=== PATIENT | male | born 1935 | race Caucasian/White ===

== ENCOUNTER 2020-08-09 06:00 | Day surgery (SDC) | payer MEDICARE ==
[2020-08-07 15:14] VITALS: BMI 31.6
[2020-08-09] MEDS ORDERED: SODIUM CHLORIDE 0.9% 1,000 ML IV SCH ×2 (06:11→13:30)
[2020-08-09 12:41] VITALS: TEMP 98
[2020-08-09] MEDS ORDERED: PROPOFOL 10 MG/ML 20 ML VIAL IV ONE (12:57)
[2020-08-09] MEDS ORDERED: BENZOCAINE SPRAY 1 CAN TOPICAL ONE (13:11)
[2020-08-09 13:51] VITALS: RESP 16
--- NOTE | 2020-08-09 14:13 | ECHOT ---
TRANSESOPHAGEAL ECHOCARDIOGRAM INDICATION: Evaluation left atrial appendage. PROCEDURE: After explaining the procedure to the patient, its risks and the complications, his blood pressure, heart rate, O2 saturations were monitored. The throat was sprayed with Cetacaine. He received sedation per Anesthesia Department. The probe was introduced in the esophagus without difficulties. Images were obtained. Following that, the probe was removed. There was no immediate complication. FINDINGS: Left atrial size is normal. Left atrial appendage is normal. Left ventricular size and systolic function normal. The aortic valve appears to be normal. Mild thickening of the mitral valve leaflets was noted. Tricuspid valve appears to be normal. Descending thoracic aorta revealed mild atherosclerotic changes of the descending thoracic aorta. No pericardial effusion was noted. Doppler pulse wave and color Doppler obtained revealed moderate mitral with mild tricuspid regurgitation. There was no shunting across the interatrial septum. CONCLUSION: 1. Normal appearance left atrial appendage. 2. Normal left ventricular size and systolic function. 3. Mild thickening of the mitral valve leaflets with moderate mitral regurgitation. 4. Mild tricuspid regurgitation. 5. No shunting across the interatrial septum with color or bubble study. 6. Mild atherosclerotic changes of the descending thoracic aorta. MMODL / IJN: [id number] /
[2020-08-09 15:41] VITALS: BP 137/77
[2020-08-09 16:01] VITALS: PULSE 52
--- NOTE | 2020-08-09 17:44 | PCN ---
PROCEDURE NOTE INDICATION: Atrial tachycardia, symptomatic. PROCEDURE DESCRIPTION: After explaining the procedure to the patient, its risks and complications, his blood pressure, heart rate and oxygen saturations were monitored. After performing transesophageal echocardiogram and obtaining a sedated state per Anesthesia Department, a synchronized biphasic cardioversion using 200 joules was performed with hoahaoism of normal sinus rhythm. There was no immediate complication. CASSIDY / GAUDENCION: [id number] /
[2020-08-09] MEDS ORDERED: NON FORMULARY DRUG (Metformin Hcl [Glucophage] 1,000 MG Tablet) PO SCH (18:30)
[2020-08-09] MEDS ORDERED: ATORVASTATIN 10 MG TAB PO SCH (21:00)
[2020-08-09] MEDS ORDERED: APIXABAN 2.5 MG TABLET PO SCH (21:00)
[2020-08-10] MEDS ORDERED: PANTOPRAZOLE 40 MG TABLET PO SCH (07:30)
[2020-08-10] MEDS ORDERED: POTASSIUM CHLORIDE ER 20 MEQ TAB.ER PO SCH (09:00)
[2020-08-10] MEDS ORDERED: LISINOPRIL-HCTZ 20-25 MG 1 EACH TAB PO SCH (09:00)
[2020-08-10] MEDS ORDERED: AMIODARONE 100 MG TAB PO SCH (09:00)
[2020-08-10] MEDS ORDERED: DOXAZOSIN 2 MG TAB PO SCH (09:00)
== END 2020-08-09 16:00 | disposition home or self-care (01) ==
LOC: CATHCVL 06:00
PROVIDERS: ATTEND Internal Medicine Interventional Cardiology
DX: I47.1 Supraventricular tachycardia (principal); I48.0 Paroxysmal atrial fibrillation; I08.1 Rheumatic disorders of both mitral and tricuspid valves; I25.10 Atherosclerotic heart disease of native coronary artery without angina pectoris; I12.9 Hypertensive chronic kidney disease with stage 1 through stage 4 chronic kidney disease, or unspecified chronic kidney disease; E11.22 Type 2 diabetes mellitus with diabetic chronic kidney disease; Z20.822 Contact with and (suspected) exposure to COVID-19; N18.9 Chronic kidney disease, unspecified; E78.2 Mixed hyperlipidemia; Z79.01 Long term (current) use of anticoagulants; Z79.84 Long term (current) use of oral hypoglycemic drugs; Z79.899 Other long term (current) drug therapy; Z88.0 Allergy status to penicillin; Z88.2 Allergy status to sulfonamides; Z91.048 Other nonmedicinal substance allergy status
CPT/HCPCS: 93312; 93320; 93325; 92960; 87635; J2704

== ENCOUNTER → 2020-10-12 | Outpatient (CLI) | payer MEDICARE ==
--- NOTE | 2020-10-12 14:45 | FL ---
EXAMINATION TYPE: FL sniff test without CXR DATE OF EXAM: 10/12/2020 COMPARISON: Chest x-ray 01/24/2016 and 09/19/2020 HISTORY: Shortness of breath with exertion, left side issue per physician TECHNIQUE: Fluoroscopy. FINDINGS: Fluoroscopic guidance was provided during procedure performed by Dr. Gallo. Total 38 seconds of fluoroscopic time was utilized during the procedure . 3 last image folds were acquired. No eviden ce of paradoxical motion of the diaphragms on the sniff test with inspiration or expiration.. There i s mild asymmetric elevation of the left hemidiaphragm. IMPRESSION: As Above.
== END | disposition home or self-care (01) ==
LOC: RADUSWWP 08:31
PROVIDERS: ATTEND Internal Medicine Critical Care Medicine
DX: J98.6 Disorders of diaphragm (principal)
CPT/HCPCS: 76000

== ENCOUNTER 2022-01-18 04:50 | Observation (INO) | payer MEDICARE ==
[2022-01-18 05:42] LABS: Basophils % (A) 1 %; Eosinophils # (A) 0.2 k/uL (0-0.7); Eosinophils % (A) 3 %; HCT 34.1 % (39.0-53.0); HGB 11.2 gm/dL (13.0-17.5); Lymphocytes # (A) 0.9 k/uL (1.0-4.8); Lymphocytes % (A) 13 %; MCH 29.4 pg (25.0-35.0); MCHC 32.9 g/dL (31.0-37.0); MCV 89.2 fL (80.0-100.0); Mean Platelet Volume 8.3; Monocytes # (A) 0.3 k/uL (0-1.0); Monocytes % (A) 4 %; Neutrophils % (A) 76 %; Platelet Count 150 k/uL (150-450); RBC 3.82 m/uL (4.30-5.90); RDW 14.1 % (11.5-15.5); WBC 6.6 k/uL (3.8-10.6)
[2022-01-18 05:56] LABS: Albumin 4.1 g/dL (3.5-5.0); Calcium 8.9 mg/dL (8.4-10.2); Total Bilirubin 0.7 mg/dL (0.2-1.3); Total Protein 6.6 g/dL (6.3-8.2)
[2022-01-18 05:59] LABS: INR 1.1 (<1.2); Partial Thromboplastin Time 29.6 sec (22.0-30.0)
--- NOTE | 2022-01-18 06:06 | XR ---
EXAMINATION TYPE: XR chest 1V portable DATE OF EXAM: 01/18/2022 COMPARISON: 09/19/2020 HISTORY: Pain short of breath TECHNIQUE: FINDINGS: There is mild blunting right costophrenic angle. No heart failure seen. Heart size is brandi l. Thoracic aorta is atheromatous. IMPRESSION: There is small pleural effusion or pleural reaction right lung base without change. No he art failure.
[2022-01-18] MEDS ORDERED: AZITHROMYCIN 500 MG TAB PO STA (06:52)
[2022-01-18] MEDS ORDERED: PNEUMONIA PROTOCOL UTILIZED 1 EACH MISC PO PRN (06:58)
--- NOTE | 2022-01-18 06:58 | ED ---
SOB HPI - General Chief Complaint: Shortness of Breath Stated Complaint: ERIC Time Seen by Provider: 01/18/22 05:04 Source: patient - History of Present Illness Initial Comments: this patient is an 86-year-old man who presents to have evaluation because he suspects he is developing pneumonia. The patient states he has had cough and shortness of breath worsening since last night. He also has been feeling cold.. He has not noted fever. Patient states his cough has turned productive. He is having some yellowish sputum. No chest pain. MD Complaint: shortness of breath, cough -: hour(s) Severity scale (1-10): 0 Consistency: constant Improves With: nothing Worsens With: lying flat Known History Of: congestive heart failure Associated Symptoms: cough, sputum production, orthopnea - Related Data Home Medications Medication Instructions Recorded Confirmed Doxazosin [Cardura] 2 mg PO DAILY 01/24/16 01/18/22 Lisinopril-Hctz 20-25 mg 1 tab PO DAILY 01/24/16 01/18/22 [Zestoretic 20-25] Lovastatin [Mevacor] 40 mg PO HS 01/24/16 01/18/22 Omeprazole [PriLOSEC] 20 mg PO BID 01/24/16 01/18/22 Apixaban [Eliquis] 2.5 mg PO BID 08/07/20 01/18/22 Potassium Chloride ER [K-Dur 20] 20 meq PO DAILY 08/07/20 01/18/22 metFORMIN HCL [Glucophage] 1,000 mg PO PC-SUPPER 08/07/20 01/18/22 Azithromycin [Zithromax Z Pack] See Taper PO DIRECTED 01/18/22 01/18/22 Furosemide [Lasix] 20 mg PO DAILY 01/18/22 01/18/22 Previous Rx's Medication Instructions Recorded Metoprolol Tartrate [Lopressor] 12.5 mg PO BID #0 08/09/20 Allergies Allergy/AdvReac Type Severity Reaction Status Date / Time No Known Allergies Allergy Verified 01/18/22 12:38 Review of Systems ROS Statement: Those systems with pertinent positive or pertinent negative responses have been documented in the HPI. ROS Other: All systems not noted in ROS Statement are negative. Constitutional: Reports: chills, weakness. Denies: fever Respiratory: Reports: cough, dyspnea. Denies: wheezes, hemoptysis Cardiovascular: Reports: orthopnea. Denies: chest pain, palpitations, edema Gastrointestinal: Denies: abdominal pain, vomiting, diarrhea, constipation Genitourinary: Denies: dysuria, hematuria Musculoskeletal: Denies: back pain Skin: Denies: rash Neurological: Denies: headache, weakness Past Medical History Past Medical History: Diabetes Mellitus, Hypertension History of Any Multi-Drug Resistant Organisms: None Reported Past Surgical History: Cholecystectomy Past Psychological History: No Psychological Hx Reported Smoking Status: Never smoker Past Alcohol Use History: None Reported Past Drug Use History: None Reported General Exam General appearance: alert, in distress Head exam: Present: atraumatic, normocephalic Eye exam: Present: normal appearance. Absent: scleral icterus, conjunctival injection Neck exam: Present: normal inspection Respiratory exam: Present: respiratory distress, wheezes, rhonchi, accessory muscle use. Absent: rales, chest wall tenderness, decreased breath sounds, prolonged expiratory Cardiovascular Exam: Present: regular rate, normal rhythm, normal heart sounds. Absent: systolic murmur, diastolic murmur, rubs, gallop GI/Abdominal exam: Present: soft. Absent: distended, tenderness, guarding, rebound, rigid, mass, pulsatile mass Extremities exam: Present: normal inspection, normal capillary refill. Absent: pedal edema, calf tenderness Back exam: Present: normal inspection. Absent: CVA tenderness (R), CVA tenderness (L) Neurological exam: Present: alert Skin exam: Present: warm, dry, intact, normal color. Absent: rash Course Vital Signs 01/18/22 01/18/22 01/18/22 05:03 06:01 08:45 Temperature 98 F 98.1 F Pulse Rate 113 H 110 H 111 H Respiratory 19 20 20 Rate Blood Pressure 152/95 147/98 O2 Sat by Pulse 97 99 99 Oximetry 01/18/22 01/18/22 13:04 17:40 Temperature 98.8 F 98.5 F Pulse Rate 109 H 106 H Respiratory 20 24 Rate Blood Pressure 134/90 133/90 O2 Sat by Pulse 100 98 Oximetry Medical Decision Making - Lab Data Result diagrams: 01/20/22 07:25 01/20/22 07:25 Lab Results 01/18/22 01/18/22 01/18/22 Range/Units 05:28 05:28 05:28 WBC 6.6 (3.8-10.6) k/uL RBC 3.82 L (4.30-5.90) m/uL Hgb 11.2 L (13.0-17.5) gm/dL Hct 34.1 L (39.0-53.0) % MCV 89.2 (80.0-100.0) fL MCH 29.4 (25.0-35.0) pg MCHC 32.9 (31.0-37.0) g/dL RDW 14.1 (11.5-15.5) % Plt Count 150 (150-450) k/uL MPV 8.3 Neutrophils % 76 % Lymphocytes % 13 % Monocytes % 4 % Eosinophils % 3 % Basophils % 1 % Neutrophils # 5.0 (1.3-7.7) k/uL Lymphocytes # 0.9 L (1.0-4.8) k/uL Monocytes # 0.3 (0-1.0) k/uL Eosinophils # 0.2 (0-0.7) k/uL Basophils # 0.0 (0-0.2) k/uL PT 12.0 (9.0-12.0) sec INR 1.1 (<1.2) APTT 29.6 (22.0-30.0) sec D-Dimer 1.02 H (<0.60) mg/L FEU Sodium 134 L (137-145) mmol/L Potassium 4.0 (3.5-5.1) mmol/L Chloride 98 (98-107) mmol/L Carbon Dioxide 22 (22-30) mmol/L Anion Gap 14 mmol/L BUN 34 H (9-20) mg/dL Creatinine 2.27 H (0.66-1.25) mg/dL Est GFR (CKD-EPI)AfAm 29 (>60 ml/min/1.73 sqM) Est GFR (CKD-EPI)NonAf 25 (>60 ml/min/1.73 sqM) Glucose 192 H (74-99) mg/dL Lactic Ac Sepsis Rflx Plasma Lactic Acid Eddie (0.7-2.0) mmol/L Calcium 8.9 (8.4-10.2) mg/dL Total Bilirubin 0.7 (0.2-1.3) mg/dL AST 22 (17-59) U/L ALT 14 (4-49) U/L Alkaline Phosphatase 68 (38-126) U/L Troponin I (0.000-0.034) ng/mL NT-Pro-B Natriuret Pep pg/mL Total Protein 6.6 (6.3-8.2) g/dL Albumin 4.1 (3.5-5.0) g/dL 01/18/22 01/18/22 01/18/22 Range/Units 05:28 05:28 05:28 WBC (3.8-10.6) k/uL RBC (4.30-5.90) m/uL Hgb (13.0-17.5) gm/dL Hct (39.0-53.0) % MCV (80.0-100.0) fL MCH (25.0-35.0) pg MCHC (31.0-37.0) g/dL RDW (11.5-15.5) % Plt Count (150-450) k/uL MPV Neutrophils % % Lymphocytes % % Monocytes % % Eosinophils % % Basophils % % Neutrophils # (1.3-7.7) k/uL Lymphocytes # (1.0-4.8) k/uL Monocytes # (0-1.0) k/uL Eosinophils # (0-0.7) k/uL Basophils # (0-0.2) k/uL PT (9.0-12.0) sec INR (<1.2) APTT (22.0-30.0) sec D-Dimer (<0.60) mg/L FEU Sodium (137-145) mmol/L Potassium (3.5-5.1) mmol/L Chloride (98-107) mmol/L Carbon Dioxide (22-30) mmol/L Anion Gap mmol/L BUN (9-20) mg/dL Creatinine (0.66-1.25) mg/dL Est GFR (CKD-EPI)AfAm (>60 ml/min/1.73 sqM) Est GFR (CKD-EPI)NonAf (>60 ml/min/1.73 sqM) Glucose (74-99) mg/dL Lactic Ac Sepsis Rflx Plasma Lactic Acid Eddie 2.6 H* (0.7-2.0) mmol/L Calcium (8.4-10.2) mg/dL Total Bilirubin (0.2-1.3) mg/dL AST (17-59) U/L ALT (4-49) U/L Alkaline Phosphatase (38-126) U/L Troponin I 0.014 (0.000-0.034) ng/mL NT-Pro-B Natriuret Pep 2300 pg/mL Total Protein (6.3-8.2) g/dL Albumin (3.5-5.0) g/dL 01/18/22 Range/Units 06:05 WBC (3.8-10.6) k/uL RBC (4.30-5.90) m/uL Hgb (13.0-17.5) gm/dL Hct (39.0-53.0) % MCV (80.0-100.0) fL MCH (25.0-35.0) pg MCHC (31.0-37.0) g/dL RDW (11.5-15.5) % Plt Count (150-450) k/uL MPV Neutrophils % % Lymphocytes % % Monocytes % % Eosinophils % % Basophils % % Neutrophils # (1.3-7.7) k/uL Lymphocytes # (1.0-4.8) k/uL Monocytes # (0-1.0) k/uL Eosinophils # (0-0.7) k/uL Basophils # (0-0.2) k/uL PT (9.0-12.0) sec INR (<1.2) APTT (22.0-30.0) sec D-Dimer (<0.60) mg/L FEU Sodium (137-145) mmol/L Potassium (3.5-5.1) mmol/L Chloride (98-107) mmol/L Carbon Dioxide (22-30) mmol/L Anion Gap mmol/L BUN (9-20) mg/dL Creatinine (0.66-1.25) mg/dL Est GFR (CKD-EPI)AfAm (>60 ml/min/1.73 sqM) Est GFR (CKD-EPI)NonAf (>60 ml/min/1.73 sqM) Glucose (74-99) mg/dL Lactic Ac Sepsis Rflx Y Plasma Lactic Acid Eddie (0.7-2.0) mmol/L Calcium (8.4-10.2) mg/dL Total Bilirubin (0.2-1.3) mg/dL AST (17-59) U/L ALT (4-49) U/L Alkaline Phosphatase (38-126) U/L Troponin I (0.000-0.034) ng/mL NT-Pro-B Natriuret Pep pg/mL Total Protein (6.3-8.2) g/dL Albumin (3.5-5.0) g/dL - EKG Data -: EKG Interpreted by Md EKG shows normal: axis (normal), intervals (normal) Rate: tachycardia (rate 111 bpm) Interpretation: other (the underlying rhythm is possible ectopic atrial tachycardia versus A. fib) Disposition Clinical Impression: Dyspnea Disposition: ADMITTED IP TO THIS HOSP Condition: Fair Is patient prescribed a controlled substance at d/c from ED?: No
[2022-01-18] MEDS: LISINOPRIL-HCTZ 20-25 MG 1 EACH TAB PO SCH (08:37)
[2022-01-18] MEDS: AMIODARONE 100 MG TAB PO SCH (08:37)
[2022-01-18] MEDS: DOXAZOSIN 2 MG TAB PO SCH (08:37)
[2022-01-18] MEDS: APIXABAN 2.5 MG TABLET PO SCH ×2 (08:38→21:11)
[2022-01-18] MEDS: METOPROLOL TARTRATE 12.5 MG TAB PO SCH ×2 (08:38→21:11)
[2022-01-18] MEDS: PANTOPRAZOLE 40 MG TABLET PO SCH (08:38)
[2022-01-18] MEDS: POTASSIUM CHLORIDE ER 20 MEQ TAB.ER PO SCH (08:38)
--- NOTE | 2022-01-18 13:38 | NM ---
EXAMINATION TYPE: NM pul vent and perfuse DATE OF EXAM: 01/18/2022 COMPARISON: Chest x-ray same date HISTORY: Dyspnea and cough TECHNIQUE: Utilizing inhalation of 68.9 mCi Tc 99m DTPA aerosol and intravenous injection of 4.7 mCi of Tc 99m MAA, ventilation and perfusion images are acquired post injection in multiple projections. FINDINGS: Central clumping of the radiopharmaceutical is present on ventilation images suggesting COPD. Overall perfusion images show better uptake than on ventilation images within the lungs. Matching defect pre sent in the mid right lung. Mild decreased uptake along the apices greater on ventilation than on per fusion imaging. Matching subsegmental defects present in the left upper lobe.. IMPRESSION: Low probability for pulmonary embolism
--- NOTE | 2022-01-18 13:38 | P.CRDCN ---
History of Present Illness Consult date: 01/18/22 Consult reason: shortness of breath History of present illness: This is Alfa Hobbs NP, I'm dictating on behalf of Dr. Bermudez's H&P and A&P The patient was interviewed and examined. HPI: We were consulted on this pleasant 86-year-old patient for shortness of breath. Patient reports that he has been sick for approximately the last 4 days, and states that he's had a cold. He states that last night he thought he was starting to develop pneumonia, as he reports increasing shortness of breath with a cough. He states he has had productive sputum that has been yellow. He states he's had no chest pain, or heart palpitations. He has a pertinent past medical history that includes diabetes, hypertension, and congestive heart failure. At this time the patient reports no chest pain. He states he continues to cough up yellow sputum. ROS: [No fever, positive chills, no rigors] [Positive cough, phlegm, and expectoration] [no nausea, vomiting, or diarrhea] [no hematuria, dysuria] [no musculoskelatal complaints] [no strokes or seizures] [no skin lesions] EXAMINATION: GENERAL: Well-appearing, well-nourished and in no acute distress. NECK: Supple without JVD or thyromegaly. LUNGS: Breath sounds demonstrate decreased air entry with crackles to auscultation bilaterally. Respiration equal and unlabored. No wheezes, rales or rhonchi. HEART: Regular rate and rhythm without murmurs, rubs or gallops. S1 and S2 heard. EXTREMITIES: Normal range of motion, no edema. No clubbing or cyanosis. Peripheral pulses intact and strong. REVIEW OF LABS, ECG & MEDICAL DATA: LABS: White count 6.6, hemoglobin 11.2, platelets 150, d-dimer 1.02, sodium 134, potassium 4.0, B1 34, creatinine 2.27, troponin 0.014, BNP 2300 EKG: Atrial tachycardia, reviewable complexes appear to be normal IMAGING: Chest x-ray dated 01/18/2022 demonstrates a small pleural effusion or pleural reaction at the right lung base without change. No heart failure. VITALS: Temp 98.1, pulse 111, respirations 20, blood pressure 147/98, O2 saturation 99% on 2 L IMPRESSION: 1. Pneumonia 2. Hypertension 3. Congestive heart failure 4. Diabetes PLAN: No changes to medication regimen recommended at this time Patient appears to have an underlying pneumonia with no acute exacerbation of congestive heart failure noted. Recommend pulmonary consult. Thank you for the consult and allowing us to participate in the care of this patient. Past Medical History Past Medical History: Diabetes Mellitus, Hypertension History of Any Multi-Drug Resistant Organisms: None Reported Past Surgical History: Cholecystectomy Past Psychological History: No Psychological Hx Reported Smoking Status: Never smoker Past Alcohol Use History: None Reported Past Drug Use History: None Reported Medications and Allergies Home Medications Medication Instructions Recorded Confirmed Type Doxazosin [Cardura] 2 mg PO DAILY 01/24/16 01/18/22 History Lisinopril-Hctz 20-25 mg 1 tab PO DAILY 01/24/16 01/18/22 History [Zestoretic 20-25] Lovastatin [Mevacor] 40 mg PO HS 01/24/16 01/18/22 History Omeprazole [PriLOSEC] 20 mg PO BID 01/24/16 01/18/22 History Apixaban [Eliquis] 2.5 mg PO BID 08/07/20 01/18/22 History Potassium Chloride ER [K-Dur 20] 20 meq PO DAILY 08/07/20 01/18/22 History metFORMIN HCL [Glucophage] 1,000 mg PO PC-SUPPER 08/07/20 01/18/22 History Metoprolol Tartrate [Lopressor] 12.5 mg PO BID #0 08/09/20 01/18/22 Rx Azithromycin [Zithromax Z Pack] See Taper PO DIRECTED 01/18/22 01/18/22 Hist ory Furosemide [Lasix] 20 mg PO DAILY 01/18/22 01/18/22 History Allergies Allergy/AdvReac Type Severity Reaction Status Date / Time No Known Allergies Allergy Verified 01/18/22 12:38 Physical Exam Vitals: Vital Signs Temp Pulse Resp BP Pulse Ox 01/18/22 13:04 98.8 F 109 H 20 134/90 100 01/18/22 08:45 98.1 F 111 H 20 147/98 99 01/18/22 06:01 110 H 20 99 01/18/22 05:03 98 F 113 H 19 152/95 97 Intake and Output 10/14/22 10/15/22 10/15/22 22:59 06:59 14:59 Other: Weight 76.657 kg Results 01/18/22 05:28 01/18/22 05:28 Cardiac Enzymes 01/18/22 01/18/22 Range/Units 05:28 05:28 AST 22 (17-59) U/L Troponin I 0.014 (0.000-0.034) ng/mL Coagulation 01/18/22 Range/Units 05:28 PT 12.0 (9.0-12.0) sec APTT 29.6 (22.0-30.0) sec CBC 01/18/22 Range/Units 05:28 WBC 6.6 (3.8-10.6) k/uL RBC 3.82 L (4.30-5.90) m/uL Hgb 11.2 L (13.0-17.5) gm/dL Hct 34.1 L (39.0-53.0) % Plt Count 150 (150-450) k/uL Comprehensive Metabolic Panel 01/18/22 Range/Units 05:28 Sodium 134 L (137-145) mmol/L Potassium 4.0 (3.5-5.1) mmol/L Chloride 98 (98-107) mmol/L Carbon Dioxide 22 (22-30) mmol/L BUN 34 H (9-20) mg/dL Creatinine 2.27 H (0.66-1.25) mg/dL Glucose 192 H (74-99) mg/dL Calcium 8.9 (8.4-10.2) mg/dL AST 22 (17-59) U/L ALT 14 (4-49) U/L Alkaline Phosphatase 68 (38-126) U/L Total Protein 6.6 (6.3-8.2) g/dL Albumin 4.1 (3.5-5.0) g/dL Current Medications Generic Name Dose Route Start Last Admin Trade Name Freq PRN Reason Stop Dose Admin Amiodarone HCl 100 mg 01/18/22 09:00 01/18/22 08:37 Amiodarone 100 Mg Tab PO 100 mg DAILY KAYE Administration Apixaban 2.5 mg 01/18/22 09:00 01/18/22 08:38 Apixaban 2.5 Mg Tablet PO 2.5 mg BID KAYE Administration Protocol Atorvastatin Calcium 10 mg 01/18/22 21:00 Atorvastatin 10 Mg Tab PO HS KAYE Azithromycin 500 mg 01/19/22 09:00 Azithromycin 500 Mg Tab PO 01/20/22 09:01 DAILY KAYE Protocol Doxazosin Mesylate 2 mg 01/18/22 09:00 01/18/22 08:37 Doxazosin 2 Mg Tab PO 2 mg DAILY KAYE Administration Lisinopril/HCTZ 1 each 01/18/22 09:00 01/18/22 08:37 Lisinopril-Hctz 20-25 Mg 1 Each Tab PO 1 each DAILY KAYE Administration Ceftriaxone Sodium 2 gm/ 50 mls @ 100 mls/hr 01/19/22 09:00 Sodium Chloride IVPB 01/22/22 09:29 Q24HR [facility] Protocol Metformin HCl 1,000 mg 01/18/22 18:30 Metformin 500 Mg Tab PO PC-SUPPER KAYE Metoprolol Tartrate 12.5 mg 01/18/22 09:00 01/18/22 08:38 Metoprolol Tartrate 12.5 Mg Tab PO 12.5 mg BID KAYE Administration Miscellaneous Information 1 each 01/18/22 06:58 Pneumonia Protocol Utilized 1 Each Misc PO ONCE PRN Per Protocol Pantoprazole Sodium 40 mg 01/18/22 07:30 01/18/22 08:38 Pantoprazole 40 Mg Tablet PO 40 mg [id number] KAYE Administration Potassium Chloride 20 meq 01/18/22 09:00 01/18/22 08:38 Potassium Chloride Er 20 Meq Tab.Er PO 20 meq DAILY KAYE Administration Sodium Chloride 10 ml 01/18/22 09:00 01/18/22 08:38 Sodium Chloride 0.9% Flush 10 Ml Syringe IV 10 ml BID KAYE Administration Intake and Output 01/17/22 01/18/22 01/18/22 22:59 06:59 14:59 Other: Weight 76.657 kg 01/18/22 05:28 01/18/22 05:28
[2022-01-18] MEDS ORDERED: metFORMIN 500 MG TAB PO SCH (18:30)
--- NOTE | 2022-01-18 18:56 | P.HPIM ---
History of Present Illness H&P Date: 01/18/22 Chief Complaint: Shortness of breath Patient is a 86-year-old male with a known history of hypertension, diabetes type 2, atrial fibrillation on anticoagulation with Eliquis, chronic kidney disease stage III presents to ER with complaints of shortness of breath, cough with yellowish sputum production. Patient thought he was developing pneumonia. According to his she did have sinusitis and her also started having cough with sputum production. Denied any having fever at home. No complaints of chest pain. No nausea vomiting abdominal pain or diarrhea. No dysuria. No leg swelling. Chest x-ray showed very small pleural effusion or pleural reaction in the right lung base without change. No heart failure. EKG showed ectopics atrial tachycardia with frequent ventricular premature complexes. Laboratory test showed WBC 6.6 hemoglobin 11.2 and platelets 150 Iron D-dimer is 1.02 Sodium 134 potassium 4.0 chloride 98 BUN 34 and creatinine 2.27 and blood sugar 192 lactic acid 2.6 Troponin x1 negative and proBNP is 2300 Review of Systems Constitutional: Patient denies any fever or chills . no Generalized weakness. Abdomen: Patient denied any nausea or vomiting or abd. pain Cardiovascular: Patient denies any chest pain or short of breath no palpitations. Respiratory: Patient does have cough with sputum production yellowish. Associated with shortness of breath Neurologic: Patient denied any numbness or tingling headache. Musculoskeletal: Patient denies any complaints of joint swelling or deformity. Skin: Negative Psychiatric: Negative Endocrine: No heat or cold intolerance. No recent weight gain. Genitourinary: No dysuria or hematuria. All other 14 point ROS negative except the above Past Medical History Past Medical History: Diabetes Mellitus, Hypertension History of Any Multi-Drug Resistant Organisms: None Reported Past Surgical History: Cholecystectomy Past Psychological History: No Psychological Hx Reported Smoking Status: Never smoker Past Alcohol Use History: None Reported Past Drug Use History: None Reported Medications and Allergies Home Medications Medication Instructions Recorded Confirmed Type Doxazosin [Cardura] 2 mg PO DAILY 01/24/16 01/18/22 History Lisinopril-Hctz 20-25 mg 1 tab PO DAILY 01/24/16 01/18/22 History [Zestoretic 20-25] Lovastatin [Mevacor] 40 mg PO HS 01/24/16 01/18/22 History Omeprazole [PriLOSEC] 20 mg PO BID 01/24/16 01/18/22 History Apixaban [Eliquis] 2.5 mg PO BID 08/07/20 01/18/22 History Potassium Chloride ER [K-Dur 20] 20 meq PO DAILY 08/07/20 01/18/22 History metFORMIN HCL [Glucophage] 1,000 mg PO PC-SUPPER 08/07/20 01/18/22 History Metoprolol Tartrate [Lopressor] 12.5 mg PO BID #0 08/09/20 01/18/22 Rx Azithromycin [Zithromax Z Pack] See Taper PO DIRECTED 01/18/22 01/18/22 History Furosemide [Lasix] 20 mg PO DAILY 01/18/22 01/18/22 History Allergies Allergy/AdvReac Type Severity Reaction Status Date / Time No Known Allergies Allergy Verified 01/18/22 12:38 Physical Exam Vitals: Vital Signs Temp Pulse Resp BP Pulse Ox 01/18/22 08:45 98.1 F 111 H 20 147/98 99 01/18/22 06:01 110 H 20 99 01/18/22 05:03 98 F 113 H 19 152/95 97 Intake and Output 01/17/22 01/18/22 01/18/22 22:59 06:59 14:59 Other: Weight 76.657 kg PHYSICAL EXAMINATION: Patient is lying in the bed comfortably, no acute distress, awake alert and oriented.. HEENT: Normocephalic. Neck is supple. Pupils reactive. Nostrils clear. Oral cavity is moist. Neck reveals no JVD, carotid bruits, or thyromegaly. CHEST EXAMINATION: Trachea is central. Symmetrical expansion. Bilateral diminished sounds and minimal basilar crackles. No wheezing or rhonchi. Nonlabored breathing.. CARDIAC: Normal S1, S2 with no gallops. No murmurs ABDOMEN: Soft. Bowel sounds present. Nontender. No organomegaly. No abdominal bruits. Extremities: reveal no edema. No clubbing or cyanosis Neurologically awake, alert, oriented x3 with well-coordinated movements. No focal deficits noted Skin: No rash or skin lesions. Psychiatric: Coperative. Nonsuicidal, Musculoskeletal: No joint swelling or deformity. Normal range of motion. Results CBC & Chem 7: 01/18/22 05:28 01/18/22 05:28 Labs: Abnormal Lab Results - Last 24 Hours (Table) 01/18/22 01/18/22 01/18/22 Range/Units 05:28 05:28 05:28 RBC 3.82 L (4.30-5.90) m/uL Hgb 11.2 L (13.0-17.5) gm/dL Hct 34.1 L (39.0-53.0) % Lymphocytes # 0.9 L (1.0-4.8) k/uL D-Dimer 1.02 H (<0.60) mg/L FEU Sodium 134 L (137-145) mmol/L BUN 34 H (9-20) mg/dL Creatinine 2.27 H (0.66-1.25) mg/dL Glucose 192 H (74-99) mg/dL Plasma Lactic Acid Eddie (0.7-2.0) mmol/L 01/18/22 Range/Units 05:28 RBC (4.30-5.90) m/uL Hgb (13.0-17.5) gm/dL Hct (39.0-53.0) % Lymphocytes # (1.0-4.8) k/uL D-Dimer (<0.60) mg/L FEU Sodium (137-145) mmol/L BUN (9-20) mg/dL Creatinine (0.66-1.25) mg/dL Glucose (74-99) mg/dL Plasma Lactic Acid Eddie 2.6 H* (0.7-2.0) mmol/L Thrombosis Risk Factor Assmnt - DVT/VTE Prophylaxis DVT/VTE Prophylaxis: Pharmacologic Prophylaxis ordered Assessment and Plan Assessment: Acute purulent tracheobronchitis. Possible pneumonia. Shortness of breath Elevated D-dimer level. Rule out PE. VQ scan was ordered due to CKD. Chronic kidney disease stage III with baseline creatinine around 2.4. Elevated BNP level without evidence of CHF. Chronic CHF. Ejection fraction not known. Paroxysmal atrial fibrillation on anticoagulation with Eliquis Hypertension Diabetes type 2 GI and DVT prophylaxis Plan: Patient will continue on telemetry monitoring. Started on antibiotics in the form of ceftriaxone azithromycin. Follow-up sputum cultures. Patient is currently requiring 2 L oxygen via nasal cannula. Continued home blood pressure medications and metoprolol 12.5 mg twice daily and amiodarone. Cardiology is on board. Discussed with the patient and his at bedside in detail. Prognosis is guarded at this time. Time with Patient: Greater than 30
[2022-01-18 20:29] LABS: Glucose,Whole Blood 173 mg/dL (70-110)
[2022-01-18] MEDS: ATORVASTATIN 10 MG TAB PO SCH (21:12)
[2022-01-19 07:00] LABS: Glucose,Whole Blood 161 mg/dL (70-110)
[2022-01-19] MEDS: APIXABAN 2.5 MG TABLET PO SCH ×2 (07:19→21:03)
[2022-01-19] MEDS: PANTOPRAZOLE 40 MG TABLET PO SCH (07:19)
[2022-01-19] MEDS: METOPROLOL TARTRATE 12.5 MG TAB PO SCH (07:19)
[2022-01-19] MEDS: POTASSIUM CHLORIDE ER 20 MEQ TAB.ER PO SCH (07:19)
[2022-01-19] MEDS: DOXAZOSIN 2 MG TAB PO SCH (07:20)
[2022-01-19] MEDS: LISINOPRIL-HCTZ 20-25 MG 1 EACH TAB PO SCH (07:20)
[2022-01-19] MEDS: AMIODARONE 100 MG TAB PO SCH (07:20)
[2022-01-19] MEDS: AZITHROMYCIN 500 MG TAB PO SCH (07:20)
[2022-01-19] MEDS: METOPROLOL TARTRATE 25 MG TAB PO SCH ×2 (08:50→21:03)
[2022-01-19 08:59] LABS: Basophils # (A) 0.02 X 10*3/uL (0.00-0.10); Basophils % (A) 0.3 %; Eosinophils # (A) 0.09 X 10*3/uL (0.04-0.35); Eosinophils % (A) 1.3 %; HCT 32.6 % (39.6-50.0); HGB 10.2 g/dL (13.0-17.0); Immature Grans, Automated 0.3 %; Lymphocytes # (A) 0.74 X 10*3/uL (0.90-5.00); Lymphocytes % (A) 10.4 %; MCH 28.3 pg (27.0-32.0); MCHC 31.3 g/dL (32.0-37.0); MCV 90.6 fL (80.0-97.0); Mean Platelet Volume 10.7 fL (9.5-12.2); Monocytes # (A) 0.71 X 10*3/uL (0.20-1.00); NRBC Per 100 WBC 0 /100 WBCS (0.0-0.0); Neutrophils # (A) 5.55 X 10*3/uL (1.80-7.70); Neutrophils % (A) 77.7 %; Platelet Count 166 X 10*3/uL (140-440); WBC 7.13 X 10*3/uL (4.50-10.00)
[2022-01-19 09:10] LABS: African American GFR (CKD) 33.2 (60.0-200.0); Anion Gap 11.3 mmol/L (10.00-18.00); BUN/Creat Ratio 13.43 Ratio (12.00-20.00); Blood Urea Nitrogen 27.4 mg/dL (9.0-27.0); Carbon Dioxide 26.1 mmol/L (20.0-27.5); Non-African American GFR(CKD) 28.7 (60.0-200.0); Potassium 4.2 mmol/L (3.5-5.5)
[2022-01-19 11:28] LABS: Glucose,Whole Blood 165 mg/dL (70-110)
[2022-01-19] MEDS ORDERED: FUROSEMIDE 10 MG/ML 2 ML VIAL IV ONE (11:56)
[2022-01-19] MEDS: DILTIAZEM ORAL 30 MG TAB PO SCH ×3 (14:12→21:03)
[2022-01-19 17:09] LABS: Glucose,Whole Blood 153 mg/dL (70-110)
[2022-01-19 20:21] LABS: Glucose,Whole Blood 165 mg/dL (70-110)
[2022-01-19] MEDS: ATORVASTATIN 10 MG TAB PO SCH (21:03)
--- NOTE | 2022-01-20 01:44 | P.PN ---
Subjective Progress Note Date: 01/19/22 Patient is a 86-year-old male with a known history of hypertension, diabetes type 2, atrial fibrillation on anticoagulation with Eliquis, chronic kidney disease stage III presents to ER with complaints of shortness of breath, cough with yellowish sputum production. Patient thought he was developing pneumonia. According to his she did have sinusitis and her also started having cough with sputum production. Denied any having fever at home. No complaints of chest pain. No nausea vomiting abdominal pain or diarrhea. No dysuria. No leg swelling. Chest x-ray showed very small pleural effusion or pleural reaction in the right lung base without change. No heart failure. EKG showed ectopics atrial tachycardia with frequent ventricular premature complexes. Laboratory test showed WBC 6.6 hemoglobin 11.2 and platelets 150 Iron D-dimer is 1.02 Sodium 134 potassium 4.0 chloride 98 BUN 34 and creatinine 2.27 and blood sugar 192 lactic acid 2.6 Troponin x1 negative and proBNP is 2300 01/19/2022 Patient is currently sitting on a chair. Comfortably. Awake alert and oriented x3. No complaints of chest pain. Cough and sputum production is also improved. Patient is currently on room air. Patient is able to walk in the hallway. Otherwise patient 22 atrial fibrillation with rapid ventricular rate. No complaints of chest pain. Patient was started back on metoprolol and added Ca rdizem 30 mg daily. Cardiology is on board. Otherwise patient is being current on antibiotics for tracheobronchitis. Blood cultures showed no growth. Patient is improving clinically. Current medications reviewed. Objective - Vital Signs Vital signs: Vital Signs Temp 97.5 F L 01/19/22 13:10 Pulse 102 H 01/19/22 15:43 Resp 16 01/19/22 13:10 BP 129/80 01/19/22 14:41 Pulse Ox 97 01/19/22 13:10 FiO2 Intake & Output 01/18/22 01/19/22 01/19/22 18:59 06:59 18:59 Weight 77 kg Other: Voiding Method Toilet # Voids 2 - Exam PHYSICAL EXAMINATION: Patient is lying in the bed comfortably, no acute distress, awake alert and oriented.. HEENT: Normocephalic. Neck is supple. Pupils reactive. Nostrils clear. Oral cavity is moist. Neck reveals no JVD, carotid bruits, or thyromegaly. CHEST EXAMINATION: Trachea is central. Symmetrical expansion. Bilateral diminished sounds and minimal basilar crackles. No wheezing or rhonchi. Nonlabored breathing.. CARDIAC: Normal S1, S2 with no gallops. No murmurs ABDOMEN: Soft. Bowel sounds present. Nontender. No organomegaly. No abdominal bruits. Extremities: reveal no edema. No clubbing or cyanosis Neurologically awake, alert, oriented x3 with well-coordinated movements. No focal deficits noted Skin: No rash or skin lesions. Psychiatric: Coperative. Nonsuicidal, Musculoskeletal: No joint swelling or deformity. Normal range of motion. - Labs CBC & Chem 7: 01/19/22 03:45 01/19/22 03:45 Labs: Abnormal Lab Results - Last 24 Hours (Table) 01/18/22 01/19/22 01/19/22 Range/Units 20:27 03:45 03:45 RBC 3.60 L (4.40-5.60) X 10*6/uL Hgb 10.2 L (13.0-17.0) g/dL Hct 32.6 L (39.6-50.0) % MCHC 31.3 L (32.0-37.0) g/dL Lymphocytes # 0.74 L (0.90-5.00) X 10*3/uL Sodium 134 L (135-145) mmol/L BUN 27.4 H (9.0-27.0) mg/dL Creatinine 2.0 H (0.6-1.5) mg/dL Est GFR (CKD-EPI)AfAm 33.2 L (60.0-200.0) Est GFR (CKD-EPI)NonAf 28.7 L (60.0-200.0) Glucose 151 H (70-110) mg/dL POC Glucose (mg/dL) 173 H (70-110) mg/dL 01/19/22 01/19/22 Range/Units 06:58 11:26 RBC (4.40-5.60) X 10*6/uL Hgb (13.0-17.0) g/dL Hct (39.6-50.0) % MCHC (32.0-37.0) g/dL Lymphocytes # (0.90-5.00) X 10*3/uL Sodium (135-145) mmol/L BUN (9.0-27.0) mg/dL Creatinine (0.6-1.5) mg/dL Est GFR (CKD-EPI)AfAm (60.0-200.0) Est GFR (CKD-EPI)NonAf (60.0-200.0) Glucose (70-110) mg/dL POC Glucose (mg/dL) 161 H 165 H (70-110) mg/dL Microbiology - Last 24 Hours (Table) 01/18/22 08:00 Blood Culture - Preliminary Blood No Growth after 24 hours 01/18/22 07:45 Blood Culture - Preliminary Blood No Growth after 24 hours Assessment and Plan Assessment: Acute purulent tracheobronchitis. Possible pneumonia. Shortness of breath Atrial fibrillation with rapid regular rate. Elevated D-dimer level. Rule out PE. VQ scan low prob. Chronic kidney disease stage III with baseline creatinine around 2.4. Elevated BNP level without evidence of CHF. Chronic CHF. Ejection fraction not known. Paroxysmal atrial fibrillation on anticoagulation with Eliquis Hypertension Diabetes type 2 GI and DVT prophylaxis Plan: Patient will continue on telemetry monitoring. Started on antibiotics in the form of ceftriaxone azithromycin. Follow-up sputum cultures. on RA now. Continued home blood pressure medications and metoprolol 12.5 mg twice daily and amiodarone. Cardiology is on board. added Cardizem Discussed with the patient and his at bedside in detail. Prognosis is guarded at this time. Time with Patient: Greater than 30
[2022-01-20 07:01] LABS: Glucose,Whole Blood 138 mg/dL (70-110)
[2022-01-20] MEDS: APIXABAN 2.5 MG TABLET PO SCH ×2 (08:18→21:44)
[2022-01-20] MEDS: METOPROLOL TARTRATE 25 MG TAB PO SCH ×2 (08:19→21:44)
[2022-01-20] MEDS: AZITHROMYCIN 500 MG TAB PO SCH (08:19)
[2022-01-20] MEDS: DILTIAZEM ORAL 30 MG TAB PO SCH ×4 (08:19→21:44)
[2022-01-20] MEDS: AMIODARONE 100 MG TAB PO SCH (08:19)
[2022-01-20] MEDS: POTASSIUM CHLORIDE ER 20 MEQ TAB.ER PO SCH (08:19)
[2022-01-20] MEDS: DOXAZOSIN 2 MG TAB PO SCH (08:19)
[2022-01-20] MEDS: LISINOPRIL-HCTZ 20-25 MG 1 EACH TAB PO SCH (08:19)
[2022-01-20] MEDS: PANTOPRAZOLE 40 MG TABLET PO SCH (08:19)
[2022-01-20 11:39] LABS: African American GFR (CKD) 34.6 (60.0-200.0); Anion Gap 11.9 mmol/L (10.00-18.00); BUN/Creat Ratio 14.57 Ratio (12.00-20.00); Blood Urea Nitrogen 28.7 mg/dL (9.0-27.0); Calcium 8.9 mg/dL (8.7-10.3); Carbon Dioxide 26.1 mmol/L (20.0-27.5); Non-African American GFR(CKD) 29.9 (60.0-200.0); Potassium 4.3 mmol/L (3.5-5.5)
[2022-01-20 11:41] LABS: Basophils # (A) 0.02 X 10*3/uL (0.00-0.10); Basophils % (A) 0.3 %; Eosinophils # (A) 0.22 X 10*3/uL (0.04-0.35); Eosinophils % (A) 3.3 %; HCT 32.7 % (39.6-50.0); HGB 10.4 g/dL (13.0-17.0); Immature Grans, Automated 0.3 %; Lymphocytes # (A) 1.16 X 10*3/uL (0.90-5.00); Lymphocytes % (A) 17.5 %; MCH 28.7 pg (27.0-32.0); MCHC 31.8 g/dL (32.0-37.0); MCV 90.1 fL (80.0-97.0); Mean Platelet Volume 10.4 fL (9.5-12.2); Monocytes # (A) 0.71 X 10*3/uL (0.20-1.00); Monocytes % (A) 10.7 %; NRBC Per 100 WBC 0 /100 WBCS (0.0-0.0); Neutrophils # (A) 4.51 X 10*3/uL (1.80-7.70); Neutrophils % (A) 67.9 %; Platelet Count 157 X 10*3/uL (140-440); RBC 3.63 X 10*6/uL (4.40-5.60); WBC 6.64 X 10*3/uL (4.50-10.00)
[2022-01-20 11:55] LABS: Glucose,Whole Blood 130 mg/dL (70-110)
[2022-01-20] MEDS ORDERED: IPRATROPIUM-ALBUTEROL 3 ML NEB INHALATION PRN (13:06)
--- NOTE | 2022-01-20 15:29 | P.CNPUL ---
History of Present Illness Consult date: 01/20/22 Requesting physician: Estuardo Bermudez Reason for consult: dyspnea, cough Chief complaint: Shortness of breath, cough, congestion History of present illness: This is a 86-year-old male patient with a known history of diabetes mellitus, hypertension, hyperlipidemia, atrial fibrillation anticoagulated with Eliquis. Therapy is a very remote smoking history. He presented here to the emergency room on 01/19/2020 with complaints of increasing shortness of breath, cough and congestion. His had been sick recently with a sinus infection. He states he has yellow productive sputum. No fever chills. No nausea, vomiting or diarrhea. Chest x-ray revealed a small pleural effusion or reaction in the right lung base without change compared to previous in September 2020. No heart failure. Blood culture pending. Sputum culture pending. White count 6.6. Hemoglobin 10.4. Sodium 134. Potassium 4.3. Bicarb 28. Creatinine 2.0. Glucose 136. ProBNP 2300. D-dimer 1.02. Ventilation/perfusion scan revealed low probability for pulmonary emboli. He was initiated on ceftriaxone. He is seen today in consultation on the regular medical floor. Sitting up in a chair at the bedside. Awake and alert in no acute distress. He does have a loose nonproductive cough. Some end expiratory wheeze and few scattered rhonchi. He is maintaining O2 saturations in the upper 90s on 2 L/m per nasal cannula. He is afebrile. Hemodynamically stable. Review of Systems REVIEW OF SYSTEMS: CONSTITUTIONAL: Denies any recent significant weight loss or weight gain. EYES: Denies change in vision. EARS, NOSE, MOUTH, THROAT: Denies headaches, denies sore throat. CARDIOVASCULAR: Denies chest pain, palpitations or syncopal episodes. RESPIRATORY: Positive for shortness of breath, cough, congestion no hemoptysis. GASTROINTESTINAL: Denies change in appetite, denies abdominal pain GENITOURINARY: Denies hematuria, denies infections. MUSKULOSKELETAL: Denies pain, denies swelling. INTEGUMENTARY: Denies rash, denies eczema. NEUROLOGICAL: Denies recent memory loss, no recent seizure activity. PSYCHIATRIC: Denies anxiety, denies depression. HEMATOLOGIC/LYMPHATIC: Denies anemia, denies enlarged lymph nodes. Past Medical History Past Medical History: Atrial Fibrillation, Heart Failure, Diabetes Mellitus, Hypertension History of Any Multi-Drug Resistant Organisms: None Reported Past Surgical History: Cholecystectomy Past Anesthesia/Blood Transfusion Reactions: No Reported Reaction Past Psychological History: No Psychological Hx Reported Smoking Status: Never smoker Past Alcohol Use History: None Reported Past Drug Use History: None Reported Medications and Allergies Home Medications Medication Instructions Recorded Confirmed Type Doxazosin [Cardura] 2 mg PO DAILY 01/24/16 01/18/22 History Lisinopril-Hctz 20-25 mg 1 tab PO DAILY 01/24/16 01/18/22 History [Zestoretic 20-25] Lovastatin [Mevacor] 40 mg PO HS 01/24/16 01/18/22 History Omeprazole [PriLOSEC] 20 mg PO BID 01/24/16 01/18/22 History Apixaban [Eliquis] 2.5 mg PO BID 08/07/20 01/18/22 History Potassium Chloride ER [K-Dur 20] 20 meq PO DAILY 08/07/20 01/18/22 History metFORMIN HCL [Glucophage] 1,000 mg PO PC-SUPPER 08/07/20 01/18/22 History Metoprolol Tartrate [Lopressor] 12.5 mg PO BID #0 08/09/20 01/18/22 Rx Azithromycin [Zithromax Z Pack] See Taper PO DIRECTED 01/18/22 01/18/22 History Furosemide [Lasix] 20 mg PO DAILY 01/18/22 01/18/22 History Allergies Allergy/AdvReac Type Severity Reaction Status Date / Time No Known Allergies Allergy Verified 01/18/22 12:38 Physical Exam Vitals: Vital Signs Temp Pulse Resp BP Pulse Ox 01/20/22 09:00 97 01/20/22 07:00 98.1 F 75 19 125/88 98 01/20/22 02:30 97.4 F L 106 H 18 112/63 99 01/19/22 19:50 91 17 01/19/22 19:48 98.0 F 91 17 118/68 98 01/19/22 18:06 97.7 F 90 18 122/75 99 01/19/22 15:43 102 H Intake and Output 01/20/22 01/20/22 01/20/22 06:59 14:59 22:59 Other: # Voids 1 Weight 76 kg GENERAL EXAM: Alert, pleasant 86-year-old male patient, on 2 L nasal cannula, up in a chair in appetite, comfortable in no apparent distress. HEAD: Normocephalic. EYES: Normal reaction of pupils, equal size. NOSE: Clear with pink turbinates. THROAT: No erythema or exudates. NECK: No masses, no JVD. CHEST: No chest wall deformity. LUNGS: Equal air entry with bilateral wheeze, few scattered rhonchi. CVS: S1 and S2 normal with no audible murmur, regular rhythm. ABDOMEN: No hepatosplenomegaly, normal bowel sounds, no guarding or rigidity. SPINE: No scoliosis or deformity SKIN: No rashes CENTRAL NERVOUS SYSTEM: No focal deficits, tone is normal in all 4 extremities. EXTREMITIES: There is no peripheral edema. No clubbing, no cyanosis. Peripheral pulses are intact. Results - Laboratory Findings CBC and BMP: 01/20/22 07:25 01/20/22 07:25 PT/INR, D-dimer PT 12.0 sec (9.0-12.0) 01/18/22 05:28 INR 1.1 (<1.2) 01/18/22 05:28 D-Dimer 1.02 mg/L FEU (<0.60) H 01/18/22 05:28 Abnormal lab findings: Abnormal Labs 01/18/22 01/18/22 01/18/22 05:28 05:28 05:28 RBC 3.82 L Hgb 11.2 L Hct 34.1 L MCHC Lymphocytes # 0.9 L D-Dimer 1.02 H Sodium 134 L BUN 34 H Creatinine 2.27 H Est GFR (CKD-EPI)AfAm Est GFR (CKD-EPI)NonAf Glucose 192 H POC Glucose (mg/dL) Plasma Lactic Acid Eddie 01/18/22 01/18/22 01/19/22 05:28 20:27 03:45 RBC 3.60 L Hgb 10.2 L Hct 32.6 L MCHC 31.3 L Lymphocytes # 0.74 L D-Dimer Sodium BUN Creatinine Est GFR (CKD-EPI)AfAm Est GFR (CKD-EPI)NonAf Glucose POC Glucose (mg/dL) 173 H Plasma Lactic Acid Eddie 2.6 H* 01/19/22 01/19/22 01/19/22 03:45 06:58 11:26 RBC Hgb Hct MCHC Lymphocytes # D-Dimer Sodium 134 L BUN 27.4 H Creatinine 2.0 H Est GFR (CKD-EPI)AfAm 33.2 L Est GFR (CKD-EPI)NonAf 28.7 L Glucose 151 H POC Glucose (mg/dL) 161 H 165 H Plasma Lactic Acid Eddie 01/19/22 01/19/22 01/20/22 17:04 20:20 06:59 RBC Hgb Hct MCHC Lymphocytes # D-Dimer Sodium BUN Creatinine Est GFR (CKD-EPI)AfAm Est GFR (CKD-EPI)NonAf Glucose POC Glucose (mg/dL) 153 H 165 H 138 H Plasma Lactic Acid Eddie 01/20/22 01/20/22 01/20/22 07:25 07:25 11:54 RBC 3.63 L Hgb 10.4 L Hct 32.7 L MCHC 31.8 L Lymphocytes # D-Dimer Sodium 134 L BUN 28.7 H Creatinine 2.0 H Est GFR (CKD-EPI)AfAm 34.6 L Est GFR (CKD-EPI)NonAf 29.9 L Glucose 136 H POC Glucose (mg/dL) 130 H Plasma Lactic Acid Eddie - Diagnostic Findings Chest x-ray: image reviewed Assessment and Plan Assessment: Dyspnea secondary to an acute tracheobronchitis with bronchospasm, no clear evidence of pneumonia. Procalcitonin pending. Currently on ceftriaxone. Chest x-ray shows no acute process. No leukocytosis. Atrial fibrillation, anticoagulated with all of this History of congestive heart failure Very remote history of smoking Hyperlipidemia Hypertension Diabetes mellitus Plan: The patient was seen and evaluated Chest x-ray, VQ scan, medication and labs reviewed The patient is somewhat bronchospastic Add DuoNeb inhalations, continue antibiotics for now Check a pro-calcitonin Sputum culture pending Anticoagulated with Eliquis We will continue to follow and make further recommendations based on his clinical status I have personally seen and examined the patient, performed the documentation and the assessment and plan as written. Number of minutes spent on the visit: 20.
[2022-01-20 16:13] LABS: Glucose,Whole Blood 161 mg/dL (70-110)
[2022-01-20] MEDS: IPRATROPIUM-ALBUTEROL 3 ML NEB INHALATION SCH ×2 (16:46→21:09)
[2022-01-20 21:01] LABS: Glucose,Whole Blood 195 mg/dL (70-110)
[2022-01-20] MEDS: ATORVASTATIN 10 MG TAB PO SCH (21:44)
--- NOTE | 2022-01-21 02:36 | P.PN ---
Subjective Progress Note Date: 01/20/22 Patient is a 86-year-old male with a known history of hypertension, diabetes type 2, atrial fibrillation on anticoagulation with Eliquis, chronic kidney disease stage III presents to ER with complaints of shortness of breath, cough with yellowish sputum production. Patient thought he was developing pneumonia. According to his she did have sinusitis and her also started having cough with sputum production. Denied any having fever at home. No complaints of chest pain. No nausea vomiting abdominal pain or diarrhea. No dysuria. No leg swelling. Chest x-ray showed very small pleural effusion or pleural reaction in the right lung base without change. No heart failure. EKG showed ectopics atrial tachycardia with frequent ventricular premature complexes. Laboratory test showed WBC 6.6 hemoglobin 11.2 and platelets 150 Iron D-dimer is 1.02 Sodium 134 potassium 4.0 chloride 98 BUN 34 and creatinine 2.27 and blood sugar 192 lactic acid 2.6 Troponin x1 negative and proBNP is 2300 01/19/2022 Patient is currently sitting on a chair. Comfortably. Awake alert and oriented x3. No complaints of chest pain. Cough and sputum production is also improved. Patient is currently on room air. Patient is able to walk in the hallway. Otherwise patient 22 atrial fibrillation with rapid ventricular rate. No complaints of chest pain. Patient was started back on metoprolol and added Cardizem 30 mg daily. Cardiology is on board. Otherwise patient is being current on antibiotics for tracheobronchitis. Blood cultures showed no growth. Patient is improving clinically. 01/20/2022 Patient is seen and evaluated in follow-up this morning with at the bedside. Patient has been evaluated by cardiology and cleared for discharge. Patient awaiting pulmonary evaluation. recommend to continue with duonebs and ceftriaxone. Patient is afebrile and denies chest pain or worsening shortness of breath. Patient denies nausea or vomiting and tolerating diet. Requesting when he can go home. Sputum culture pending. Encouraged increase activity as tolerated. Procalcitonin is ordered and pending. Review of systems: Constitutional: No reports of fatigue, fever, or chills Cardiovascular: No reports of chest pain or palpitations Respiratory: No reports of worsening shortness of breath or cough GI: No reports of nausea, vomiting, or diarrhea : No reports of dysuria or retention Neurovascular: No reports of weakness or numbness All medications have been reviewed Physical exam: Patient is sitting up, awake alert and oriented..Well developed, well nourished HEENT: Normocephalic. Neck is supple. Pupils reactive. Nostrils clear. Oral cavity is moist. Neck reveals no JVD, carotid bruits, or thyromegaly. CHEST EXAMINATION: Trachea is central. Symmetrical expansion. Bilateral diminished sounds and minimal basilar crackles. No wheezing with some rhonchi noted. Nonlabored breathing.. CARDIAC:S1, S2 muffled ABDOMEN: Soft. Bowel sounds present. Nontender. No organomegaly. No abdominal bruits. Extremities: reveal no edema. No clubbing or cyanosis Neurologically awake, alert, oriented x3 with well-coordinated movements. No focal deficits noted Skin: No rash or skin lesions. Psychiatric: Cooperative. Non-suicidal, Musculoskeletal: No joint swelling or deformity. Normal range of motion. Assessment: Acute purulent tracheobronchitis. Possible pneumonia. Shortness of breath Atrial fibrillation with rapid regular rate. Elevated D-dimer level. Rule out PE. VQ scan low prob. Chronic kidney disease stage III with baseline creatinine around 2.4. Elevated BNP level without evidence of CHF. Chronic CHF. Ejection fraction not known. Paroxysmal atrial fibrillation on anticoagulation with Eliquis Hypertension Diabetes type 2 GI and DVT prophylaxis Plan: Patient will continue on telemetry monitoring. Continued on antibiotics in the form of ceftriaxone. Follow-up sputum cultures pending and pulmonary consulted. on RA now. Procalcitonin ordered. Continue with duonebs. Will need inhalers on discharge. Continued home blood pressure medications and metoprolol 12.5 mg twice daily and amiodarone along with cardizem. Cardiology following and cleared for discharge. Will need outpatient follow up. Due to multiple complex medical issues, Prognosis is guarded at this time. Possible discharge in 24 hours. The impression and plan of care has been dictated by Yadi Beltrán, Nurse Practitioner as directed. Dr. Bry MD I have performed a history and examination and MDM of this patient, discussed the same with the dictator, and agree with the dictator's assessment and plan as written ,documented as a scribe. Based on total visit time, I have performed more than 50% of the visit. Objective - Vital Signs Vital signs: Vital Signs Temp 96.9 F L 01/20/22 14:00 Pulse 65 01/20/22 16:46 Resp 18 01/20/22 14:00 BP 99/61 01/20/22 14:00 Pulse Ox 96 01/20/22 16:46 FiO2 Intake & Output 01/19/22 01/20/22 01/20/22 18:59 06:59 18:59 Output Total 500 Balance -500 Weight 76 kg Output: Urine 500 Other: Voiding Method Toilet # Voids 1 - Labs CBC & Chem 7: 01/20/22 07:25 01/20/22 07:25 Labs: Abnormal Lab Results - Last 24 Hours (Table) 01/19/22 01/19/22 01/20/22 Range/Units 17:04 20:20 06:59 RBC (4.40-5.60) X 10*6/uL Hgb (13.0-17.0) g/dL Hct (39.6-50.0) % MCHC (32.0-37.0) g/dL Sodium (135-145) mmol/L BUN (9.0-27.0) mg/dL Creatinine (0.6-1.5) mg/dL Est GFR (CKD-EPI)AfAm (60.0-200.0) Est GFR (CKD-EPI)NonAf (60.0-200.0) Glucose (70-110) mg/dL POC Glucose (mg/dL) 153 H 165 H 138 H (70-110) mg/dL 01/20/22 01/20/22 01/20/22 Range/Units 07:25 07:25 11:54 RBC 3.63 L (4.40-5.60) X 10*6/uL Hgb 10.4 L (13.0-17.0) g/dL Hct 32.7 L (39.6-50.0) % MCHC 31.8 L (32.0-37.0) g/dL Sodium 134 L (135-145) mmol/L BUN 28.7 H (9.0-27.0) mg/dL Creatinine 2.0 H (0.6-1.5) mg/dL Est GFR (CKD-EPI)AfAm 34.6 L (60.0-200.0) Est GFR (CKD-EPI)NonAf 29.9 L (60.0-200.0) Glucose 136 H (70-110) mg/dL POC Glucose (mg/dL) 130 H (70-110) mg/dL 01/20/22 Range/Units 16:07 RBC (4.40-5.60) X 10*6/uL Hgb (13.0-17.0) g/dL Hct (39.6-50.0) % MCHC (32.0-37.0) g/dL Sodium (135-145) mmol/L BUN (9.0-27.0) mg/dL Creatinine (0.6-1.5) mg/dL Est GFR (CKD-EPI)AfAm (60.0-200.0) Est GFR (CKD-EPI)NonAf (60.0-200.0) Glucose (70-110) mg/dL POC Glucose (mg/dL) 161 H (70-110) mg/dL Microbiology - Last 24 Hours (Table) 01/18/22 08:07 Sputum Culture - Preliminary Sputum 01/18/22 08:00 Blood Culture - Preliminary Blood No Growth after 48 hours 01/18/22 07:45 Blood Culture - Preliminary Blood No Growth after 48 hours
[2022-01-21 07:10] LABS: Glucose,Whole Blood 137 mg/dL (70-110)
[2022-01-21] MEDS: IPRATROPIUM-ALBUTEROL 3 ML NEB INHALATION SCH ×2 (08:05→11:29)
[2022-01-21] MEDS: PANTOPRAZOLE 40 MG TABLET PO SCH (08:38)
[2022-01-21] MEDS: POTASSIUM CHLORIDE ER 20 MEQ TAB.ER PO SCH (09:07)
[2022-01-21] MEDS: METOPROLOL TARTRATE 25 MG TAB PO SCH (09:07)
[2022-01-21] MEDS: APIXABAN 2.5 MG TABLET PO SCH (09:08)
[2022-01-21] MEDS: DOXAZOSIN 2 MG TAB PO SCH (09:09)
[2022-01-21] MEDS: DILTIAZEM ORAL 30 MG TAB PO SCH ×2 (09:10→13:31)
[2022-01-21] MEDS: LISINOPRIL-HCTZ 20-25 MG 1 EACH TAB PO SCH (09:10)
[2022-01-21] MEDS: AMIODARONE 100 MG TAB PO SCH (09:11)
[2022-01-21 11:55] LABS: Glucose,Whole Blood 181 mg/dL (70-110)
[2022-01-21 12:03] VITALS: RESP 19
[2022-01-21 12:14] VITALS: BP 116/52; PULSE 78; TEMP 97.7
--- NOTE | 2022-01-21 15:32 | P.PN ---
Subjective Progress Note Date: 01/21/22 This is a 86-year-old male patient with a known history of diabetes mellitus, hypertension, hyperlipidemia, atrial fibrillation anticoagulated with Eliquis. Therapy is a very remote smoking history. He presented here to the emergency room on 01/19/2020 with complaints of increasing shortness of breath, cough and congestion. His had been sick recently with a sinus infection. He states he has yellow productive sputum. No fever chills. No nausea, vomiting or diarrhea. Chest x-ray revealed a small pleural effusion or reaction in the right lung base without change compared to previous in September 2020. No heart failure. Blood culture pending. Sputum culture pending. White count 6.6. Hemoglobin 10.4. Sodium 134. Potassium 4.3. Bicarb 28. Creatinine 2.0. Glucose 136. ProBNP 2300. D-dimer 1.02. Ventilation/perfusion scan revealed low probability for pulmonary emboli. He was initiated on ceftriaxone. He is seen today in consultation on the regular medical floor. Sitting up in a chair at the bedside. Awake and alert in no acute distress. He does have a loose nonproductive cough. Some end expiratory wheeze and few scattered rhonchi. He is maintaining O2 saturations in the upper 90s on 2 L/m per nasal cannula. He is afebrile. Hemodynamically stable. The patient is seen today 01/21/2022 in follow-up on the regular medical floor. He is currently sitting up in chair at the bedside. Awake and alert in no acute distress. Maintaining good O2 saturations in the mid 90s on room air. He's been afebrile. Hemodynamically stable. Blood and sputum cultures revealed no growth. This continued on DuoNeb inhalations, antibiotics in the form of ceftriaxone. Anticoagulated with Eliquis. He denies any worsening shortness of breath, cough or congestion. Feeling back to his baseline. Objective - Vital Signs Vital signs: Vital Signs Temp 97.7 F 01/21/22 12:00 Pulse 78 01/21/22 12:00 Resp 19 01/21/22 12:00 BP 116/52 01/21/22 12:00 Pulse Ox 97 01/21/22 12:00 FiO2 Intake & Output 01/20/22 01/21/22 01/21/22 18:59 06:59 18:59 Intake Total 240 Balance 240 Weight 77.3 kg Intake: Oral 240 Other: # Voids 3 2 - Exam GENERAL EXAM: Alert, pleasant 86 year old male, on room air, up in a chair at the bedside, comfortable in no apparent distress. HEAD: Normocephalic. EYES: Normal reaction of pupils, equal size. NOSE: Clear with pink turbinates. THROAT: No erythema or exudates. NECK: No masses, no JVD. CHEST: No chest wall deformity. LUNGS: Equal air entry with no crackles, wheeze, rhonchi or dullness. CVS: S1 and S2 normal with no audible murmur, regular rhythm. ABDOMEN: No hepatosplenomegaly, normal bowel sounds, no guarding or rigidity. SPINE: No scoliosis or deformity SKIN: No rashes CENTRAL NERVOUS SYSTEM: No focal deficits, tone is normal in all 4 extremities. EXTREMITIES: There is no peripheral edema. No clubbing, no cyanosis. Peripheral pulses are intact. - Labs CBC & Chem 7: 01/20/22 07:25 01/20/22 07:25 Labs: Abnormal Lab Results - Last 24 Hours (Table) 01/20/22 01/20/22 01/20/22 Range/Units 07:25 16:07 20:59 POC Glucose (mg/dL) 161 H 195 H (70-110) mg/dL Procalcitonin 0.10 H (0.02-0.09) ng/mL 01/21/22 01/21/22 Range/Units 07:08 11:54 POC Glucose (mg/dL) 137 H 181 H (70-110) mg/dL Procalcitonin (0.02-0.09) ng/mL Microbiology - Last 24 Hours (Table) 01/18/22 08:00 Blood Culture - Preliminary Blood No Growth after 72 hours 01/18/22 07:45 Blood Culture - Preliminary Blood No Growth after 72 hours 01/18/22 08:07 Gram Stain - Preliminary Sputum Sputum Culture - Preliminary Assessment and Plan Assessment: Dyspnea secondary to an acute tracheobronchitis with bronchospasm, no clear evidence of pneumonia. Procalcitonin 0.10. Currently on ceftriaxone. Chest x-r ay shows no acute process. No leukocytosis. Atrial fibrillation, anticoagulated with all of this History of congestive heart failure Very remote history of smoking Hyperlipidemia Hypertension Diabetes mellitus Plan: The patient was seen and evaluated Stable and on room air Cleared for discharge from the pulmonary standpoint I have personally seen and examined the patient, performed the documentation and the assessment and plan as written. Number of minutes spent on the visit: 10.
--- NOTE | 2022-01-23 10:50 | P.DS ---
Providers Date of admission: 01/18/22 07:01 Expected date of discharge: 01/21/22 Attending physician: Simone Cunningham Consults: 01/20/22 07:00 Consult Physician Routine Consulting Provider: Karine Fleming Consult Reason/Comments: Dyspnea/Pneumonia Do you want consulting provider notified?: Yes, Notify in am Primary care physician: Harsh Chacon Hospital Course: Final diagnosis Acute purulent tracheobronchitis. Shortness of breath secondary to COPD/CHF exacerbation Atrial fibrillation with rapid regular rate. Elevated D-dimer level. Rule out PE. VQ scan low prob. Chronic kidney disease stage III with baseline creatinine around 2.4. Elevated BNP with mildly exacerbated CHF Chronic CHF. Ejection fraction not known. Paroxysmal atrial fibrillation on anticoagulation with Eliquis Hypertension Diabetes type 2 GI and DVT prophylaxis Discharge disposition Patient is being discharged in a stable condition with guarded prognosis to home. Patient will follow-up with Dr. Chacon in the outpatient setting upon discharge. Patient is to follow-up with pulmonary as scheduled. Patient to continue with the prednisone taper along with oral doxycycline and inhalers. Total time taken is greater than 35 minutes. Hospital course This is a 86-year-old male who was recently admitted with shortness of breath with the cough and sputum production and was being closely monitored. Patient was evaluated by pulmonary started on DuoNeb treatments along with some steroids and antibiotics. Patient with some improvement and also transitioned oral Lasix for CHF exacerbation. Patient would like to go home and has been cleared by pulmonary for outpatient follow-up. Patient will continue on doxycycline along with a prednisone taper and inhalers. Patient to follow-up with pulmonary in the next 1-2 weeks for possible PFT testing. This was discussed with at the bedside. Recommend repeat labs in the next few days to monitor kidney functions and electrolytes. Currently no reports of chest pain, shortness of breath, or palpitations. Patient is afebrile. No reports of nausea or vomiting and patient is tolerating diet. Patient will be discharged today. guarded prognosis. Physical exam: Gen: This is a 86-year-old male awake, alert and oriented 3, well-developed, well-nourished. HEENT: Head is atraumatic, normocephalic. Pupils equal, round. Sclerae is anicteric. NECK: Supple. No JVD. No lymphadenopathy. No thyromegaly. LUNGS: diminished breath sounds bilaterally with some scattered rhonchi and expiratory wheezing noted. No intercostal retractions. HEART: S1, S2 are muffled ABDOMEN: Soft. Bowel sounds are present. No masses. No tenderness. EXTREMITIES: No pedal edema. No calf tenderness. NEUROLOGICAL: Patient is awake, alert and oriented x3. Cranial nerves 2 through 12 are grossly intact. Please refer to medication reconciliation sheet for a list of medications. The impression and plan of care has been dictated by Yadi Beltrán, Nurse Practitioner as directed. MD Shannon I have performed a history and examination and MDM of this patient, discussed the same with the dictator, and agree with the dictator's assessment and plan as written ,documented as a scribe. Based on total visit time, I have performed more than 50% of the visit. Patient Condition at Discharge: Fair Plan - Discharge Summary Discharge Rx Participant: No New Discharge Prescriptions: New Amiodarone [Cordarone] 100 mg PO DAILY #30 tab Metoprolol Tartrate [Lopressor] 25 mg PO BID #60 tab predniSONE 10 mg PO DIRECTED #30 tab Albuterol Inhaler [Ventolin Hfa Inhaler] 2 puff INHALATION QID 30 Days #8 gm Doxycycline [Vibramycin] 100 mg PO BID 7 Days #14 cap Diltiazem Oral [Cardizem*] 30 mg PO QID #120 tab Budesonide-Formot 160-4.5 Mcg [Symbicort 160-4.5 Mcg Inhaler] 2 puff INHALATION BID 30 Days #10.2 gm Continue Omeprazole [PriLOSEC] 20 mg PO BID Lovastatin [Mevacor] 40 mg PO HS Lisinopril-Hctz 20-25 mg [Zestoretic 20-25] 1 tab PO DAILY Doxazosin [Cardura] 2 mg PO DAILY Apixaban [Eliquis] 2.5 mg PO BID metFORMIN HCL [Glucophage] 1,000 mg PO PC-SUPPER Potassium Chloride ER [K-Dur 20] 20 meq PO DAILY Discontinued Furosemide [Lasix] 20 mg PO DAILY Metoprolol Tartrate [Lopressor] 12.5 mg PO BID #0 Azithromycin [Zithromax Z Pack] See Taper PO DIRECTED Discharge Medication List Doxazosin [Cardura] 2 mg PO DAILY 01/24/16 [History] Lisinopril-Hctz 20-25 mg [Zestoretic 20-25] 1 tab PO DAILY 01/24/16 [History] Lovastatin [Mevacor] 40 mg PO HS 01/24/16 [History] Omeprazole [PriLOSEC] 20 mg PO BID 01/24/16 [History] Apixaban [Eliquis] 2.5 mg PO BID 08/07/20 [History] Potassium Chloride ER [K-Dur 20] 20 meq PO DAILY 08/07/20 [History] metFORMIN HCL [Glucophage] 1,000 mg PO PC-SUPPER 08/07/20 [History] Albuterol Inhaler [Ventolin Hfa Inhaler] 2 puff INHALATION QID 30 Days #8 gm 01/21/22 [Rx] Amiodarone [Cordarone] 100 mg PO DAILY #30 tab 01/21/22 [Rx] Budesonide-Formot 160-4.5 Mcg [Symbicort 160-4.5 Mcg Inhaler] 2 puff INHALATION BID 30 Days #10.2 gm 01/21/22 [Rx] Diltiazem Oral [Cardizem*] 30 mg PO QID #120 tab 01/21/22 [Rx] Doxycycline [Vibramycin] 100 mg PO BID 7 Days #14 cap 01/21/22 [Rx] Metoprolol Tartrate [Lopressor] 25 mg PO BID #60 tab 01/21/22 [Rx] predniSONE 10 mg PO DIRECTED #30 tab 01/21/22 [Rx] Follow up Appointment(s)/Referral(s): Fawn Velasquez MD [STAFF PHYSICIAN] - 02/04/22 9:30 am Harsh Chacon DO [Primary Care Provider] - 01/23/22 11:30 am Ambulatory/Diagnostic Orders: Basic Metabolic Panel [LAB.AMB] Time Frame: 2 Days, Location: None Selected Patient Instructions/Handouts: Dyspnea (DC) Activity/Diet/Wound Care/Special Instructions: Activity Limited until follow-up Follow-up with primary care provider on discharge Continue taking medications as prescribed Follow-up cardiology outpatient Follow-up pulmonary in one week for possible pulmonary function testing Continue antibiotics and prednisone taper until finished Continue with inhalers as directed Discharge Disposition: HOME SELF-CARE
== END 2022-01-21 14:25 | disposition home or self-care (01) ==
LOC: EC 04:50 → 6NMEDSUR 07:01 → 4SSUR 17:31
PROVIDERS: ADMIT Internal Medicine; ATTEND Internal Medicine
DX: J20.9 Acute bronchitis, unspecified (principal); J18.9 Pneumonia, unspecified organism; I13.0 Hypertensive heart and chronic kidney disease with heart failure and stage 1 through stage 4 chronic kidney disease, or unspecified chronic kidney disease; E11.22 Type 2 diabetes mellitus with diabetic chronic kidney disease; N18.30 Chronic kidney disease, stage 3 unspecified; I50.9 Heart failure, unspecified; J44.1 Chronic obstructive pulmonary disease with (acute) exacerbation; R79.89 Other specified abnormal findings of blood chemistry; I48.0 Paroxysmal atrial fibrillation; E78.5 Hyperlipidemia, unspecified; Z90.49 Acquired absence of other specified parts of digestive tract; I47.1 Supraventricular tachycardia; Z79.01 Long term (current) use of anticoagulants; Z79.84 Long term (current) use of oral hypoglycemic drugs; Z79.899 Other long term (current) drug therapy; Z87.891 Personal history of nicotine dependence
CPT/HCPCS: 96366 ×3; 96375; 96365; 99285; 36415; 94640 ×4; 94760 ×2; 93005 ×2; 85379; 83880; 80053; 80048 ×2; 83605; 84484; 85025 ×3; 85610; 85730; 87040; 87070; 87205; 84145; 71045; 78582; G0378 ×5; A9540; A9567; J1940; J0696 ×4

== ENCOUNTER → 2022-04-17 | Outpatient (CLI) | payer MEDICARE ==
--- NOTE | 2022-04-17 11:39 | CT ---
EXAMINATION TYPE: CT brain wo con DATE OF EXAM: 04/17/2022 COMPARISON: 02/01/2016 HISTORY: left eye visual loss CT DLP: 1141 mGycm Automated exposure control for dose reduction was used. FINDINGS: Area of low attenuation in the right frontal parietal white matter typical of remote ischemia. Area o f low attenuation in the left parietal lobe most typical of remote ischemia. There is moderate genera lized degenerative change with disc slightly greater frontal lobe component. Area of abnormal signal seen in the centrum semiovale on the right anteriorly is most typical of gayle te ischemia. There is no midline shift or mass effect. No acute hemorrhage is a small area of abnormal attenuation measuring 1 cm in the right occipital lobe. Calvarium is intact. Orbits are symmetric. May be a tiny lipoma anterior to the frontal bone on axial image 26 within the subcutaneous tissues. Craniocervica l junction maintained. Sella turcica is normal. Orbits are symmetric. Intracranial atherosclerotic ch anges noted. IMPRESSION: 1. Areas of abnormal attenuation involving the right frontal parietal white matter junction and left parietal lobe most typical of remote ischemia. 2. Additional small focus area of low attenuation right occipital lobe suggestive of previous infarct of indeterminate age. Recommend follow-up MRI.
== END | disposition home or self-care (01) ==
LOC: RADCTMAIN 10:08
PROVIDERS: ATTEND Family Medicine
DX: I67.82 Cerebral ischemia (principal); H53.132 Sudden visual loss, left eye; H54.62 Unqualified visual loss, left eye, normal vision right eye
CPT/HCPCS: 36415; 70450; 82565; 84520

== ENCOUNTER 2022-07-23 11:12 | Observation (INO) | payer MEDICARE ==
[2022-07-17 16:08] VITALS: BMI 29.2
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
[2022-07-23] MEDS ORDERED: ONDANSETRON 4 MG/2 ML VIAL IVP ONE (11:29)
[2022-07-23] MEDS ORDERED: LIDOCAINE 1% (10MG/ML) FOR IV START INTRADERMA PRN (11:29)
[2022-07-23] MEDS ORDERED: DEXAMETHASONE SOD PHOSPHATE 4 MG/ML 1 ML VIAL IV ONE (11:29)
[2022-07-23] MEDS ORDERED: droPERidol 5 MG/2 ML VIAL IVP ONE (11:29)
[2022-07-23] MEDS ORDERED: HYDROmorphone 0.5 MG/0.5 ML SYRINGE IVP PRN (11:29)
[2022-07-23] MEDS ORDERED: ONDANSETRON 4 MG/2 ML VIAL ONE (11:30)
[2022-07-23] MEDS: LACTATED RINGERS 1,000 ML IV SCH ×2 (11:45→15:10)
[2022-07-23 12:06] LABS: Glucose,Whole Blood 143 mg/dL (70-110)
[2022-07-23] MEDS ORDERED: fentaNYL (PF) 50 MCG/ML 2 ML AMP ONE (12:28)
[2022-07-23] MEDS ORDERED: METOPROLOL TARTRATE 5 MG/5 ML VIAL IVP ONE ×3 (12:28→14:03)
[2022-07-23] MEDS ORDERED: PROPOFOL 10 MG/ML 20 ML VIAL IV ONE (12:28)
[2022-07-23] MEDS ORDERED: HYDROXOCOBALAMIN ONE (12:28)
[2022-07-23] MEDS ORDERED: BUPIVACAINE (PF) 0.5% 30 ML VIAL SQ ONE ×2 (12:33→12:40)
[2022-07-23] MEDS ORDERED: LIDOCAINE 1% INJ 10MG/ML (20 ML MDV) SQ ONE ×2 (12:34→12:40)
[2022-07-23] MEDS ORDERED: DILTIAZEM DRIP BOLUS FROM BAG 1 MG SOLN IV ONE (14:49)
[2022-07-23] MEDS: DILTIAZEM 125 MG in SODIUM CHLORIDE 0.9% 100 ML IV SCH (15:13)
--- NOTE | 2022-07-23 17:02 | P.OP ---
Date of Procedure: 07/23/22 Preoperative Diagnosis: Left carpal tunnel syndrome Postoperative Diagnosis: Left carpal tunnel syndrome Procedure(s) Performed: Left endoscopic carpal tunnel release Anesthesia: MAC Surgeon: William Claros It Security Consultant #1: Jm Puentes Estimated Blood Loss (ml): 0 Pathology: none sent Condition: stable Disposition: PACU Description of Procedure: This is a 87 year old male who presents today for a left endoscopic carpal tunnel release after having failed conservative treatment in the past. Risks and benefits of surgery were discussed with the patient including bleeding, damage to surrounding tissue, infection, need to convert to open procedure, need for further surgery as well as risks of anesthesia including pulmonary embolism and even and the patient wished to proceed with surgical intervention. The patients was seen in the pre-operative area by myself. Consent and H&P were completed and updated. The correct extremity was marked in the pre-operative area by myself and all other questions were answered. Operative Narrative: The patient was brought to the operating room by the department of anesthesia. They remained on the portable stretcher and a rolling hand table was brought to the side of the operative extremity. Pre-operative time out was performed indicating the correct patient, procedure and laterality. All in the room agreed. The patient was then drifted off to sleep by the department of anesthesia. MAC anesthesia was utilized and a 50:50 mixture of 1% Lidocaine and 0.5% bupivacaine was injected into the subcutaneous tissues of the palmar skin, 8ccs total. A nonsterile tourniquet was then applied to the operative extremity and the left upper extremity was then prepped and draped in normal sterile fashion. The operative extremity was the exsanguinated with an esmarch bandage and the tourniquet was inflated to 250mmHg. 15 blade scalpel was utilized to make a transverse incision on the palmar skin just ulnar to the palmaris longus tendon at the level of the distal wrist crease. Ragnell retractor was then placed radially and blunt dissection was performed to reveal the distal forearm fascia. This was lifted with fine Ishaan pick ups and Littler tenotomy scissors were then used to open the forearm fascia transversely and a double skin hook was then placed. Hamate finder was placed into the carpal tunnel and then sequential sized dilators were inserted followed by the synovial elevator to separate the flexor tenosynovium from the undersurface of the transverse carpal ligament and a washboard texture was felt. The MicroAire endoscopic carpal tunnel release system gun was the then inserted into the carpal tunnel hugging the deep portion of the transverse carpal ligament in line with the base of the ring finger. Transverse fibers of the ligament were directly visualized. Pressure was applied on the palm to reveal the distal extent of the transverse carpal ligament. The blade was then deployed and the distal half of the transverse carpal ligament was released. The scope was then brought distal again and remaining transverse fibers were incised with the blade. The proximal half of the transverse carpal ligament was then divided and again the scope was advanced distal and remaining transverse fibers were incised with the blade. The radial and ulnar leaflets were directly visualized and mobile consistent with complete release. Tenotomy scissors were then utilized to release the remaining distal forearm fascia under direct visualization taking care to preserve the palmar cutaneous branch of the median nerve. Skin closure was performed with interrupted 4-0 Monocryl suture followed by Mastisol and steri strips. Sterile dressing was applied consisting of adaptic, 4x4s, Webril, and an van bandage. Tourniquet was let down and the hand immediately was well perfused. The patient was then woken by the department of anesthesia and transferred to PACU in stable condition. Jm OBANDO was present for the case in its entirety and assisted in major portions of the case and protection of vital neurovascular structures. The patient was found to be in Afib with RVR per anesthesia intra-operatively and per anesthesia recommendations the patient was admitted post operatively to the cardiac unit with a consult to internal medicine and cardiology. Patient has a history of A- fib per the and is on Eliquis. He was stable throughout the procedure and was fully alert and oriented throughout his post operative course. William Claros D.O. Orthopedic Hand/Upper Extremity Surgeon
[2022-07-23] MEDS ORDERED: IPRATROPIUM-ALBUTEROL 3 ML NEB INHALATION PRN (17:59)
[2022-07-23] MEDS ORDERED: DEXTROSE 50% SYRINGE 50 ML IVP PRN ×2 (18:11)
[2022-07-23] MEDS ORDERED: metFORMIN 500 MG TAB PO SCH (18:30)
--- NOTE | 2022-07-23 18:56 | CONS ---
CONSULTATION CHIEF COMPLAINT: Atrial fibrillation with rapid ventricular rate. HISTORY OF PRESENT ILLNESS: This is an -atht-zug gentleman with history of paroxysmal atrial fibrillation, who underwent carpal tunnel surgery today and in the postoperative setting went into atrial fibrillation with rapid ventricular rate, for which, cardiology had been consulted. I started him on intravenous Cardizem, following which, the heart rate was better controlled, and he is admitted to hospital for the same. He has history of paroxysmal atrial fibrillation and moderate mitral regurgitation with preserved LV function. At the time of my evaluation, the patient appears comfortable at rest and is free of symptoms of chest pain or shortness of breath. PAST MEDICAL HISTORY: Significant for mod-unwvckg-qegpdnlud diabetes, hypertension, dyslipidemia, and paroxysmal atrial fibrillation. MEDICATIONS: Include: 1. Eliquis 2.5 b.i.d. 2. Allopurinol. 3. K-Dur. 4. Lasix 20 daily. 5. Zestoretic. 6. DuoNeb. 7. Lopressor 25 b.i.d. 8. Mevacor. 9. Metformin. 10.Prilosec. ALLERGIES: There are no known drug allergies. FAMILY HISTORY: Negative for premature coronary artery disease. SOCIAL HISTORY: Negative for smoking, EtOH abuse, or drug abuse. REVIEW OF SYSTEMS: 14 out of 14 review of systems has been performed. Pertinents are as documented. PHYSICAL EXAMINATION: GENERAL: Comfortable at rest. VITAL SIGNS: Heart rate is around 90 to 100 beats per minute, blood pressure is , respiratory rate is 18, O2 saturation is 95% on room air. NECK: There is no jugular venous distention. Carotid upstroke is normal. There is no bruit. CHEST: Reveals good air entry bilaterally. HEART: Reveals first and second heart sounds. Irregular rhythm. Systolic murmur at the left lower sternal border. ABDOMEN: Soft. EXTREMITIES: Did not reveal any edema. Peripheral pulses are felt. ASSESSMENT: Paroxysmal atrial fibrillation. Currently, in atrial fibrillation with poorly- controlled ventricular rate. PLAN: I will continue the patient on intravenous Cardizem. We will resume the Eliquis tomorrow morning, which is what I believe the surgeon has suggested that he do. I will obtain a 2D echo on him to evaluate his LV function. MMODL / IJN: [id number] /
[2022-07-23 19:10] LABS: Basophils % (A) 0 %; Eosinophils % (A) 0 %; HCT 36.9 % (39.0-53.0); HGB 11.9 gm/dL (13.0-17.5); Lymphocytes # (A) 0.5 k/uL (1.0-4.8); Lymphocytes % (A) 7 %; MCH 29.1 pg (25.0-35.0); MCHC 32.2 g/dL (31.0-37.0); MCV 90.3 fL (80.0-100.0); Mean Platelet Volume 8.9; Monocytes # (A) 0.2 k/uL (0-1.0); Monocytes % (A) 2 %; Neutrophils # (A) 7.4 k/uL (1.3-7.7); Neutrophils % (A) 90 %; Platelet Count 214 k/uL (150-450); RBC 4.08 m/uL (4.30-5.90); RDW 14.3 % (11.5-15.5); WBC 8.2 k/uL (3.8-10.6)
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
[2022-07-23 19:19] LABS: ALT 21 U/L (4-49); AST 24 U/L (17-59); African American GFR (CKD) 25 (>60 ml/min/1.73 sqM); Albumin 3.7 g/dL (3.5-5.0); Alkaline Phosphatase 57 U/L (38-126); Anion Gap 16 mmol/L; Bilirubin, Delta 0.4 mg/dL (0.0-0.2); Bilirubin,Unconjugated 0.1 mg/dL (0.0-1.1); Blood Urea Nitrogen 55 mg/dL (9-20); Calcium 8.6 mg/dL (8.4-10.2); Carbon Dioxide 20 mmol/L (22-30); Chloride 96 mmol/L (98-107); Glucose 362 mg/dL (74-99); Magnesium 1.3 mg/dL (1.6-2.3); Non-African American GFR(CKD) 21 (>60 ml/min/1.73 sqM); Potassium 4.6 mmol/L (3.5-5.1); Sodium 132 mmol/L (137-145); Total Bilirubin 0.5 mg/dL (0.2-1.3); Total Protein 6.3 g/dL (6.3-8.2)
[2022-07-23 19:29] LABS: INR 1.1 (<1.2); Partial Thromboplastin Time 24.1 sec (22.0-30.0); Prothrombin Time 11.8 sec (9.0-12.0)
[2022-07-23] MEDS: FAMOTIDINE 20 MG/2 ML VIAL IV SCH (20:54)
[2022-07-23] MEDS: INSULIN ASPART (NovoLOG) 100 UNIT/ML VIAL SQ SCH (20:55)
[2022-07-23] MEDS: METOPROLOL TARTRATE 25 MG TAB PO SCH (20:55)
[2022-07-23] MEDS: APIXABAN 2.5 MG TABLET PO SCH (20:55)
[2022-07-23] MEDS: BUDESONIDE 0.5 MG/2 ML NEBU INHALATION SCH (22:25)
[2022-07-24 06:06] LABS: Glucose,Whole Blood 114 mg/dL (70-110)
[2022-07-24] MEDS: INSULIN ASPART (NovoLOG) 100 UNIT/ML VIAL SQ SCH ×4 (06:35→21:47)
[2022-07-24] MEDS: DILTIAZEM 125 MG in SODIUM CHLORIDE 0.9% 100 ML IV SCH (06:42)
[2022-07-24] MEDS: DOXAZOSIN 2 MG TAB PO SCH (08:41)
[2022-07-24] MEDS: allopurinoL 100 MG TAB PO SCH (08:41)
[2022-07-24] MEDS: METOPROLOL TARTRATE 25 MG TAB PO SCH (08:41)
[2022-07-24] MEDS: LISINOPRIL-HCTZ 20-25 MG 1 EACH TAB PO SCH (08:41)
[2022-07-24] MEDS ORDERED: FUROSEMIDE 20 MG TAB PO SCH (09:00)
[2022-07-24] MEDS: APIXABAN 2.5 MG TABLET PO SCH ×2 (09:27→21:46)
[2022-07-24] MEDS ORDERED: METOPROLOL TARTRATE 25 MG TAB PO STA (10:00)
[2022-07-24 10:23] LABS: Calcium 9.2 mg/dL (8.4-10.2); Potassium 4.5 mmol/L (3.5-5.1)
[2022-07-24] MEDS ORDERED: ACETAMINOPHEN TAB 325 MG TAB PO PRN (10:50)
[2022-07-24] MEDS ORDERED: SENNOSIDES 8.6 MG TAB PO PRN (10:50)
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
[2022-07-24 11:44] LABS: Glucose,Whole Blood 207 mg/dL (70-110)
--- NOTE | 2022-07-24 12:07 | P.PN ---
Subjective this is a pleasant 87 yo M with past medical history of atrial fibrillation on eliquis, and other multiple medical problems was admitted to the surgery fink today for release of his carpal tunnel syndrome. Postoperatively patient developed A. fib and RVR with heart rate around 120 to 1:30, cardiology team were consulted who recommended to admit patient to the hospital. Currently heart rate around 150-160 however patient is asymptomatic. Patient was seen and examined in the PACU unit, was at bedside, he was fully awake and oriented, lying in bed comfortable. Denies any symptoms, no chest pain or dyspnea. No abdominal pain. No urinary complaints. No headache dizziness weakness or numbness. As per patient develops A. fib and RVR and usually he is asymptomatic. Patient was on Eliquis at home 2.5 mg which he was compliant with Eliquis was held last Thursday for surgery His left hand is wrapped in dressing. However her self exam is unremarkable He denies smoking alcohol or illicit drugs. Patient is started on Cardizem drip. no Labs available. 07/24/2022 Patient is as symptomatic today Left hand wound is stable and improving and patient is cleared by orthopedic team for discharge and follow-up in 2 weeks Heart rate is better controlled Increased dose of metoprolol to 50 mg twice a day We'll keep monitoring for today and possible discharge in 24-48 hours Objective - Vital Signs Vital signs: Vital Signs Temp 96.8 F L 07/24/22 11:59 Pulse 80 07/24/22 11:59 Resp 16 07/24/22 11:59 BP 112/67 07/24/22 11:59 Pulse Ox 99 07/24/22 11:59 FiO2 Intake & Output 07/23/22 07/24/22 07/24/22 18:59 06:59 18:59 Intake Total 1318 Output Total 850 Balance 1318 -850 Weight 79.2 kg 79.2 kg Intake: IV 1200 Oral 118 Output: Urine 850 Other: Voiding Method Toilet Toilet # Voids 3 - Exam GENERAL: The patient is alert and oriented x3, not in any acute distress. Well developed, well nourished. HEENT: Pupils are round and equally reacting to light. EOMI. No scleral icterus. No conjunctival pallor. Normocephalic, atraumatic. No pharyngeal erythema. No thyromegaly. CARDIOVASCULAR: S1 and S2 present. No murmurs, rubs, or gallops. PULMONARY: Chest is clear to auscultation, no wheezing or crackles. ABDOMEN: Soft, nontender, nondistended, normoactive bowel sounds. No palpable organomegaly. MUSCULOSKELETAL: No joint swelling or deformity. -EXTREMITIES: No cyanosis, clubbing, or pedal edema. Left hand in a dressing, rest of exam is deferred to surgery team NEUROLOGICAL: Gross neurological examination did not reveal any focal deficits. SKIN: No rashes. no petechiae. - Labs CBC & Chem 7: 07/23/22 18:44 07/24/22 09:13 Labs: Abnormal Lab Results - Last 24 Hours (Table) 07/23/22 07/23/22 07/23/22 Range/Units 08:38 12:03 18:44 RBC 4.08 L (4.30-5.90) m/uL Hgb 11.9 L (13.0-17.5) gm/dL Hct 36.9 L (39.0-53.0) % Lymphocytes # 0.5 L (1.0-4.8) k/uL Sodium (137-145) mmol/L Chloride (98-107) mmol/L Carbon Dioxide (22-30) mmol/L BUN (9-20) mg/dL Creatinine (0.66-1.25) mg/dL Glucose (74-99) mg/dL POC Glucose (mg/dL) 143 H (70-110) mg/dL Hemoglobin A1c 7.8 H (0.0-6.0) % Magnesium (1.6-2.3) mg/dL Delta Bilirubin (0.0-0.2) mg/dL 07/23/22 07/24/22 07/24/22 Range/Units 18:44 06:05 09:13 RBC (4.30-5.90) m/uL Hgb (13.0-17.5) gm/dL Hct (39.0-53.0) % Lymphocytes # (1.0-4.8) k/uL Sodium 132 L 136 L (137-145) mmol/L Chloride 96 L (98-107) mmol/L Carbon Dioxide 20 L (22-30) mmol/L BUN 55 H 55 H (9-20) mg/dL Creatinine 2.59 H 2.43 H (0.66-1.25) mg/dL Glucose 362 H 130 H (74-99) mg/dL POC Glucose (mg/dL) 114 H (70-110) mg/dL Hemoglobin A1c (0.0-6.0) % Magnesium 1.3 L (1.6-2.3) mg/dL Delta Bilirubin 0.4 H (0.0-0.2) mg/dL 07/24/22 Range/Units 11:38 RBC (4.30-5.90) m/uL Hgb (13.0-17.5) gm/dL Hct (39.0-53.0) % Lymphocytes # (1.0-4.8) k/uL Sodium (137-145) mmol/L Chloride (98-107) mmol/L Carbon Dioxide (22-30) mmol/L BUN (9-20) mg/dL Creatinine (0.66-1.25) mg/dL Glucose (74-99) mg/dL POC Glucose (mg/dL) 207 H (70-110) mg/dL Hemoglobin A1c (0.0-6.0) % Magnesium (1.6-2.3) mg/dL Delta Bilirubin (0.0-0.2) mg/dL Assessment and Plan Assessment: atrial fibrillation , with RVR carpel tunnel syndrome of left wrist s/o surgical release , post op day #0 Heart Failure Diabetes Mellitus Hypertension carpel tunnel darcy wrists gout Plan: Continue with metoprolol at higher dose 50 mg consult surgery , orthopedic team cleared Patient for discharge Telemetry monitoring cardiology consult Labs and medication were reviewed.. Continue same treatment. Continue with symptomatic treatment. Resume home medication. Monitor labs and vitals. DVT and GI prophylaxis. Further recommendations as per clinical course of the patient DVT prophylaxis: hold eliquis till cleared by surgery team GI Prophylaxis: Pepcid Prognosis is guarded Possible discharge in 24-48 hours
[2022-07-24] MEDS ORDERED: DEXTROSE 5%-0.45% NACL 1,000 ML IV SCH (12:15)
--- NOTE | 2022-07-24 12:27 | P.PN ---
Subjective Progress Note Date: 07/24/22 HISTORY OF PRESENT ILLNESS: This is an 87-year-old male who underwent surgery yesterday secondary to carpal tunnel. Postoperatively, the patient was found to be in A. fib with RVR. He was admitted to the hospital for further evaluation. Patient examined this morning at the bedside. He denies chest pain or pressure. He denies shortness of breath. Patient remains in atrial fibrillation with heart rate in the 90s. He is receiving IV Cardizem at 5 mg an hour. PHYSICAL EXAM: VITAL SIGNS: Reviewed. GENERAL: Well-developed in no acute distress. NECK: Supple. No JVD or thyromegaly LUNGS: Respirations even and unlabored. Lungs essentially clear to auscultation bilaterally. HEART: Irregular rate and rhythm. S1 and S2 heard. Systolic murmur noted EXTREMITIES: Normal range of motion. No clubbing or cyanosis. Peripheral pulses intact. No lower extremity edema ASSESSMENT: Status post left endoscopic carpal tunnel release Paroxysmal atrial fibrillation with RVR Hypertension Hyperlipidemia Diabetes Moderate mitral regurgitation PLAN: Obtain 2-D echo to assess cardiac structure and function Discontinue IV Cardizem Increase metoprolol tartrate 50 mg twice a day Continue anticoagulation Anticipate discharge home this afternoon if patients heart rates remain stable Follow up post discharge with Dr. Gilliland Nurse practitioner note has been reviewed by physician. Signing provider agrees with the documented findings, assessment, and plan of care. Objective - Vital Signs Vital signs: Vital Signs Temp 96.8 F L 07/24/22 11:59 Pulse 80 07/24/22 11:59 Resp 16 07/24/22 11:59 BP 112/67 07/24/22 11:59 Pulse Ox 99 07/24/22 11:59 FiO2 Intake & Output 07/23/22 07/24/22 07/24/22 18:59 06:59 18:59 Intake Total 1318 Output Total 850 Balance 1318 -850 Weight 79.2 kg 79.2 kg Intake: IV 1200 Oral 118 Output: Urine 850 Other: Voiding Method Toilet Toilet # Voids 3 - Labs CBC & Chem 7: 07/23/22 18:44 07/24/22 09:13 Labs: Abnormal Lab Results - Last 24 Hours (Table) 07/23/22 07/23/22 07/23/22 Range/Units 08:38 18:44 18:44 RBC 4.08 L (4.30-5.90) m/uL Hgb 11.9 L (13.0-17.5) gm/dL Hct 36.9 L (39.0-53.0) % Lymphocytes # 0.5 L (1.0-4.8) k/uL Sodium 132 L (137-145) mmol/L Chloride 96 L (98-107) mmol/L Carbon Dioxide 20 L (22-30) mmol/L BUN 55 H (9-20) mg/dL Creatinine 2.59 H (0.66-1.25) mg/dL Glucose 362 H (74-99) mg/dL POC Glucose (mg/dL) (70-110) mg/dL Hemoglobin A1c 7.8 H (0.0-6.0) % Magnesium 1.3 L (1.6-2.3) mg/dL Delta Bilirubin 0.4 H (0.0-0.2) mg/dL 07/24/22 07/24/22 07/24/22 Range/Units 06:05 09:13 11:38 RBC (4.30-5.90) m/uL Hgb (13.0-17.5) gm/dL Hct (39.0-53.0) % Lymphocytes # (1.0-4.8) k/uL Sodium 136 L (137-145) mmol/L Chloride (98-107) mmol/L Carbon Dioxide (22-30) mmol/L BUN 55 H (9-20) mg/dL Creatinine 2.43 H (0.66-1.25) mg/dL Glucose 130 H (74-99) mg/dL POC Glucose (mg/dL) 114 H 207 H (70-110) mg/dL Hemoglobin A1c (0.0-6.0) % Magnesium (1.6-2.3) mg/dL Delta Bilirubin (0.0-0.2) mg/dL
[2022-07-24] MEDS: MAGNESIUM OXIDE 400 MG TAB PO SCH ×2 (12:30→21:47)
[2022-07-24 16:28] LABS: Glucose,Whole Blood 117 mg/dL (70-110)
--- NOTE | 2022-07-24 17:22 | CA ---
Transthoracic Echo Report Name: Enrike Montes Age: 87 Gender: M : 1935 Exam Date: 07/24/2022 09:35 Exam Location: [place] [facility] Ht (in): 64 Wt (lb): 174 Ordering Physician: Robert Prado MD ([id number]) Attending/Referring Phys: Eve VELASCO [employer] Supervisor Ike Velez RDCS Procedure CPT: Indications: afib rvr Cardiac Hx: Obesity; A. Fib Technical Quality: Fair Contrast 1: Total Dose (mL): Contrast 2: Total Dose (mL): MEASUREMENTS (Male / Female) Normal Values 2D ECHO LV Diastolic Diameter PLAX 5.0 cm 4.2 - 5.9 / 3.9 - 5.3 cm LV Systolic Diameter PLAX 3.5 cm LV Fractional Shortening PLAX 30.5 % IVS Diastolic Thickness 1.2 cm 0.6 - 1.0 / 0.6 - 0.9 cm IVS Systolic Thickness 1.8 cm LVPW Diastolic Thickness 1.3 cm 0.6 - 1.0 / 0.6 - 0.9 cm LVPW Systolic Thickness 1.6 cm LV Relative Wall Thickness 0.5 RV Internal Dim ED PLAX 2.7 cm LVOT Diameter 2.5 cm LA Systolic Diameter LX 4.3 cm 3.0 - 4.0 / 2.7 - 3.8 cm LV Diastolic Volume MOD BP 67.1 cm??? 67 - 155 / 56 - 104 cm??? LV Systolic Volume MOD BP 47.8 cm??? 22 - 58 / 19 - 49 cm??? LV Ejection Fraction MOD BP 28.7 % >= 55 % LV Stroke Volume MOD BP 19.2 cm??? LV Diastolic Volume MOD 4C 73.6 cm??? LV Systolic Volume MOD 4C 64.9 cm??? LV Ejection Fraction MOD 4C 11.8 % LV Stroke Volume MOD 4C 8.7 cm??? LV Diastolic Length 4C 7.0 cm LV Systolic Length 4C 5.7 cm LV Diastolic Volume MOD 2C 61.8 cm??? LV Systolic Volume MOD 2C 33.1 cm??? LV Ejection Fraction MOD 2C 46.5 % LV Stroke Volume MOD 2C 28.8 cm??? LV Diastolic Length 2C 7.1 cm LV Systolic Length 2C 6.2 cm Ascending Aorta Diameter 3.4 cm M-MODE Aortic Root Diameter MM 3.4 cm LA Systolic Diameter MM 4.6 cm LA Ao Ratio MM 1.4 AV Cusp Separation MM 1.6 cm DOPPLER AV Peak Velocity 112.1 cm/s AV Peak Gradient 5.0 mmHg MR Peak Velocity 266.2 cm/s MR Peak Gradient 28.3 mmHg MV E' Velocity 7.9 cm/s TR Peak Velocity 254.8 cm/s TR Peak Gradient 26.0 mmHg Right Ventricular Systolic Press 38.2 mmHg FINDINGS Left Ventricle Left ventricular ejection fraction is estimated at 45 %. Abnormal left ventricular diastolic filling pattern. Reduced global left ventricular systolic function. Right Ventricle Normal right ventricular size. RVSP-57 mm Hg Right Atrium Mild right atrial dilatation. Left Atrium Normal left atrial size. Mitral Valve Mitral valve thickened. Trace to mild mitral regurgitation. Aortic Valve Trileaflet aortic valve. Diffuse thickening (sclerosis) of the aortic valve cusps without reduced excursion. Tricuspid Valve [id number] tricuspid regurgitation. Pulmonic Valve Pulmonic valve not well visualized. Pericardium Normal pericardium. No pericardial effusion. Aorta Mildly dilated proximal ascending aorta (tube). CONCLUSIONS Mild LV systolic dysfunction Mild to moderate tricuspid regurgitation Previewed by: Dr. Robert Prado MD (Electronically Signed) Final Date: 24 July 2022 17:21
[2022-07-24 19:52] LABS: Glucose,Whole Blood 169 mg/dL (70-110)
[2022-07-24] MEDS: BUDESONIDE 0.5 MG/2 ML NEBU INHALATION SCH (20:13)
[2022-07-24] MEDS: METOPROLOL TARTRATE 50 MG TAB PO SCH (21:46)
[2022-07-24] MEDS: FAMOTIDINE 20 MG/2 ML VIAL IV SCH (21:47)
[2022-07-25 05:59] LABS: Glucose,Whole Blood 137 mg/dL (70-110)
[2022-07-25] MEDS: INSULIN ASPART (NovoLOG) 100 UNIT/ML VIAL SQ SCH (06:32)
[2022-07-25 07:38] VITALS: TEMP 97.2
[2022-07-25 07:46] VITALS: BP 135/70; PULSE 147; RESP 18
[2022-07-25] MEDS: APIXABAN 2.5 MG TABLET PO SCH (07:46)
[2022-07-25] MEDS: LISINOPRIL-HCTZ 20-25 MG 1 EACH TAB PO SCH (07:47)
[2022-07-25] MEDS: DOXAZOSIN 2 MG TAB PO SCH (07:47)
[2022-07-25] MEDS: allopurinoL 100 MG TAB PO SCH (07:47)
[2022-07-25] MEDS: MAGNESIUM OXIDE 400 MG TAB PO SCH (07:47)
[2022-07-25] MEDS: METOPROLOL TARTRATE 50 MG TAB PO SCH (07:47)
[2022-07-25 09:51] LABS: Calcium 9.1 mg/dL (8.4-10.2); Magnesium 1.6 mg/dL (1.6-2.3)
[2022-07-25] MEDS ORDERED: METOPROLOL TARTRATE 25 MG TAB PO STA (09:52)
--- NOTE | 2022-07-25 10:42 | CDI ---
Documentation Clarification Form Date: 07/25/2022 10:27:13 AM From: Ariana Pollard RN CCDS Phone: [phone] Admit Date: 07/23/2022 3:06:00 PM Patient Name: Enrike Montes Visit Number: [id number] Discharge Date: ATTENTION: The Clinical Documentation Specialists (CDI) and [facility] Coding Staff appreciate your assistance in clarifying documentation. Please respond to the clarification below the line at the bottom and electronically sign. The CDI & [facility] Coding staff will review the response and follow-up if needed. Please note: Queries are made part of the Legal Health Record. If you have any questions, please contact the author of this message via ITS. Dr. Saldaña E Sheet Your patient has the documented diagnosis of unspecified CHF 07/23, H&P. Additional information regarding the type, acuity of CHF is requested. History/Risk Factors: 87 year old male presented to [facility] for elective carpal tunnel release, postoperatively patient developed A fib RVR and was admitted for evaluation. Medical History: CHF, A fib, DM and HTN Clinical Indicators: VS/Pulse OX: B/P 88/60; HR 122; Temp 97.0 F Temporal; SpO2 97% room air Echocardiogram Results: 07/24 EF 45% Mild LV systolic dysfunction, mild to moderate tricuspid regurgitation Home Medications: Lasix 20mg po daily Metoprolol 75mg PO Bid Treatment: 07/23 Lopressor 2mg ivp x 1; 07/23 07/24 Lopressor 25mg PO Bid; 07/24 Lopressor 50mg PO Bid; 07/25 Lopressor 25mg PO x 1 07/25 Lopressor 75mg PO Bid; 07/24 Lasix 20mg PO ordered and then cancelled. In your professional opinion, can you please clarify the acuity and type of CHF if known? [ ] Chronic Systolic Heart Failure (reduced EF) [ ] Other, please specify [ ] Unable to determine (Template Last Revised: May 2020) Chronic Systolic Heart Failure (reduced EF) [facility]
[2022-07-25 11:25] LABS: Glucose,Whole Blood 131 mg/dL (70-110)
--- NOTE | 2022-07-25 12:30 | P.PN ---
Subjective Progress Note Date: 07/25/22 This is an 87-year-old male who underwent surgery yesterday secondary to carpal tunnel. Postoperatively, the patient was found to be in A. fib with RVR. He was admitted to the hospital for further evaluation. Patient examined this morning at the bedside. He denies chest pain or pressure. He denies shortness of breath. Patient remains in atrial fibrillation with heart rate up to 140. Currently on metoprolol tartrate 50 mg by mouth twice a day. A cardiogram with Doppler study showed a ejection fraction 45% my trace to mild mitral regurgitation, mild to moderate tricuspid regurgitation. Objective - Vital Signs Vital signs: Vital Signs Temp 97.2 F L 07/25/22 07:26 Pulse 147 H 07/25/22 07:45 Resp 18 07/25/22 07:45 BP 135/70 07/25/22 07:45 Pulse Ox 98 07/25/22 07:45 FiO2 Intake & Output 07/24/22 07/25/22 07/25/22 18:59 06:59 18:59 Intake Total 100 Balance 100 Intake: IV 100 Invasive Line 1 100 Other: Voiding Method Toilet Toilet Toilet # Voids 1 1 - Exam GENERAL: Well-developed in no acute distress. NECK: Supple. No JVD or thyromegaly LUNGS: Respirations even and unlabored. Lungs essentially clear to auscultation bilaterally. HEART: Irregular rate and rhythm. S1 and S2 heard. Systolic murmur noted EXTREMITIES: Normal range of motion. No clubbing or cyanosis. Peripheral pulses intact. 1+ lower extremity edema - Labs CBC & Chem 7: 07/23/22 18:44 07/25/22 08:30 Labs: Abnormal Lab Results - Last 24 Hours (Table) 07/24/22 07/24/22 07/25/22 Range/Units 16:26 19:51 05:57 Sodium (137-145) mmol/L Chloride (98-107) mmol/L BUN (9-20) mg/dL Creatinine (0.66-1.25) mg/dL Glucose (74-99) mg/dL POC Glucose (mg/dL) 117 H 169 H 137 H (70-110) mg/dL 07/25/22 07/25/22 Range/Units 08:30 11:23 Sodium 135 L (137-145) mmol/L Chloride 97 L (98-107) mmol/L BUN 50 H (9-20) mg/dL Creatinine 2.62 H (0.66-1.25) mg/dL Glucose 183 H (74-99) mg/dL POC Glucose (mg/dL) 131 H (70-110) mg/dL Assessment and Plan Assessment: Status post left endoscopic carpal tunnel release Paroxysmal atrial fibrillation with RVR Hypertension Hyperlipidemia Diabetes Moderate mitral regurgitation Plan: From cardiology perspective will increase metoprolol tartrate to 75 mg by mouth twice a day. Continue anticoagulation. If patient's heart rates remain stable may be discharged home and follow-up in the office in one to 2 weeks as an outpatient. INSIGHTS MANAGER note has been reviewed, I agree with a documented findings and plan of care. Patient was seen and examined.
[2022-07-25] MEDS ORDERED: METOPROLOL TARTRATE 25 MG TAB PO SCH (21:00)
--- NOTE | 2022-08-04 00:27 | P.DS ---
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 Postoperatively patient developed A. fib and RVR with heart rate around 120 to 130, cardiology team were consulted who recommended to admit patient to the hospital. Patient evaluated by student services advisor, metoprolol dose increased 25 mg up to 75 mg. Heart rate is controlled. Patient cleared for discharge by student services advisor today. Patient denies any other symptoms, no chest pain or dyspnea. No change in urine or bowel habits. No fever. Patient says that he has AT home. Problems and management plan were discussed with the patient and he verbalized understanding and acceptance Patient was found stable and can be discharged home in guarded prognosis however he needs follow-up as an outpatient. Patient was instructed to follow up with PCP Dr. bell within one week and patient agrees Patient was instructed to follow up with Dr. Prado and he agrees with the appointments made for him on 08/05 Patient also was instructed to follow up with his orthopedic surgeon Dr. Luo and he agrees to follow up with him in 1-2 weeks. Physical exam Gen: patient is a AAOx3, no distress CVS: S1-S2, RRR, no murmur Lungs: B/L CTA, no wheezing Abdomen: soft, no distention, no tenderness, positive bowel sounds Extremity: no leg edema or induration Time spent more than 35 minutes Plan - Discharge Summary Discharge Rx Participant: No New Discharge Prescriptions: New Magnesium Oxide [Mag-Ox] 400 mg PO BID 3 Days #6 tab Metoprolol Tartrate [Lopressor] 75 mg PO BID 30 Days #180 tab Continue Omeprazole [PriLOSEC] 20 mg PO BID Lovastatin [Mevacor] 40 mg PO HS Lisinopril-Hctz 20-25 mg [Zestoretic 20-25] 1 tab PO DAILY Doxazosin [Cardura] 2 mg PO QAM Apixaban [Eliquis] 2.5 mg PO BID metFORMIN HCL [Glucophage] 1,000 mg PO PC-SUPPER Budesonide 0.5 mg INHALATION HS Ipratropium-Albuterol Nebulize [Duoneb 0.5 mg-3 mg/3 ml Soln] 3 ml INHALATION QID PRN PRN Reason: Sob Potassium Chloride ER [K-Dur 20] 20 meq PO DAILY Furosemide [Lasix] 20 mg PO DAILY allopurinoL 100 mg PO DAILY Discontinued Metoprolol Tartrate [Lopressor] 25 mg PO BID #60 tab Discharge Medication List Doxazosin [Cardura] 2 mg PO QAM 01/24/16 [History] Lisinopril-Hctz 20-25 mg [Zestoretic 20-25] 1 tab PO DAILY 01/24/16 [History] Lovastatin [Mevacor] 40 mg PO HS 01/24/16 [History] Omeprazole [PriLOSEC] 20 mg PO BID 01/24/16 [History] Apixaban [Eliquis] 2.5 mg PO BID 08/07/20 [History] Potassium Chloride ER [K-Dur 20] 20 meq PO DAILY 08/07/20 [History] metFORMIN HCL [Glucophage] 1,000 mg PO PC-SUPPER 08/07/20 [History] Budesonide 0.5 mg INHALATION HS 02/18/22 [History] Furosemide [Lasix] 20 mg PO DAILY 02/18/22 [History] Ipratropium-Albuterol Nebulize [Duoneb 0.5 mg-3 mg/3 ml Soln] 3 ml INHALATION QID PRN 02/18/22 [History] allopurinoL 100 mg PO DAILY 07/17/22 [History] Magnesium Oxide [Mag-Ox] 400 mg PO BID 3 Days #6 tab 07/25/22 [Rx] Metoprolol Tartrate [Lopressor] 75 mg PO BID 30 Days #180 tab 07/25/22 [Rx] Follow up Appointment(s)/Referral(s): William Claros DO [Doctor of Osteopathic Medicine] - 08/05/22 9:45 am Harsh Chacon DO [Primary Care Provider] - 1 Week (Please call to schedule follow up appoitment) Robert Prado MD [STAFF PHYSICIAN] - 08/05/22 10:45 am Patient Instructions/Handouts: A-fib (Atrial Fibrillation) (IP) Activity/Diet/Wound Care/Special Instructions: Keep splint clean dry and intact until post op day 3. Rest, ice and elevate the operative extremity. Okay to start moving the fingers in the dressing. Okay to remove dressing at home on post op day 3. Leave steri strips on until they fall off. Motrin/Tylenol as needed for pain. heart healthy diet activity is restricted till you see your doctor Discharge Disposition: HOME SELF-CARE
== END 2022-07-25 12:14 | disposition home or self-care (01) ==
LOC: OR 11:12 → 3SCARD 12:55 → OR 15:06 → INTOOBSV 15:06 → UNDODISIN 07-25 12:14
PROVIDERS: ADMIT Internal Medicine; ATTEND Internal Medicine
DX: G56.02 Carpal tunnel syndrome, left upper limb (principal); I97.191 Other postprocedural cardiac functional disturbances following other surgery; I48.0 Paroxysmal atrial fibrillation; M70.22 Olecranon bursitis, left elbow; I11.0 Hypertensive heart disease with heart failure; E78.5 Hyperlipidemia, unspecified; I50.22 Chronic systolic (congestive) heart failure; E66.9 Obesity, unspecified; I08.1 Rheumatic disorders of both mitral and tricuspid valves; E11.9 Type 2 diabetes mellitus without complications; M10.9 Gout, unspecified; Z90.49 Acquired absence of other specified parts of digestive tract; Z68.30 Body mass index [BMI] 30.0-30.9, adult; Z79.01 Long term (current) use of anticoagulants; Z79.899 Other long term (current) drug therapy; Z79.84 Long term (current) use of oral hypoglycemic drugs; Y83.4 Other reconstructive surgery as the cause of abnormal reaction of the patient, or of later complication, without mention of misadventure at the time of the procedure
CPT/HCPCS: 29848; 96376; 96365; 96366; 96375; 94640; 93306; 80048 ×3; 80076; 84443; 83735 ×2; 85025; 85610; 85730; 83036; G0378 ×3; J1100; J2405; J2001; J3010; J2704

== ENCOUNTER 2022-08-23 14:23 | Inpatient (IN) | payer MEDICARE ==
[2022-08-23] MEDS ORDERED: SODIUM CHLORIDE 0.9% 1,000 ML IV STA ×3 (14:46→18:40)
[2022-08-23] MEDS ORDERED: ONDANSETRON 4 MG/2 ML VIAL IVP STA (14:47)
[2022-08-23] MEDS ORDERED: PANTOPRAZOLE 40 MG/10 ML VIAL IVP STA (14:47)
[2022-08-23] MEDS ORDERED: HYDROmorphone 0.5 MG/0.5 ML SYRINGE IVP STA (14:56)
[2022-08-23 15:35] LABS: Basophils % (A) 0 %; Eosinophils # (A) 0.1 k/uL (0-0.7); Eosinophils % (A) 1 %; HCT 34.5 % (39.0-53.0); HGB 11.2 gm/dL (13.0-17.5); Lymphocytes # (A) 1.3 k/uL (1.0-4.8); Lymphocytes % (A) 6 %; MCH 28.9 pg (25.0-35.0); MCHC 32.3 g/dL (31.0-37.0); MCV 89.3 fL (80.0-100.0); Mean Platelet Volume 8.3; Monocytes # (A) 0.8 k/uL (0-1.0); Monocytes % (A) 4 %; Neutrophils % (A) 88 %; Platelet Count 198 k/uL (150-450); RBC 3.87 m/uL (4.30-5.90); RDW 15.3 % (11.5-15.5); WBC 20.4 k/uL (3.8-10.6)
[2022-08-23 15:36] LABS: Appearance,Urine Clear (Clear); Bilirubin,Urine Negative (Negative); Blood,Urine Negative (Negative); Color,Urine Yellow; Glucose,Urine (UA) Negative (Negative); Ketones,Urine Negative (Negative); Leukocyte Esterase,Urine Negative (Negative); Nitrite,Urine Negative (Negative); Protein,Urine Trace (Negative); Specific Gravity,Urine 1.014 (1.001-1.035)
[2022-08-23 16:32] LABS: Albumin 3.5 g/dL (3.5-5.0); Calcium 8.3 mg/dL (8.4-10.2); Total Bilirubin 0.6 mg/dL (0.2-1.3); Total Protein 6.1 g/dL (6.3-8.2)
--- NOTE | 2022-08-23 18:20 | CT ---
EXAMINATION TYPE: CT abdomen pelvis wo con CT DLP: 716.9 mGycm, Automated exposure control for dose reduction was used. DATE OF EXAM: 08/23/2022 5:09 PM COMPARISON: CT abdomen pelvis 09/25/2011 CLINICAL INDICATION:Male, 87 years old with history of pain; low abd pain/ cramping TECHNIQUE: Axial CT of the abdomen and pelvis. Sagittal and coronal reformats were created on a [employer] workstation. Contrast used: None. Oral contrast used: without Oral Contrast FINDINGS: LOWER CHEST: Unremarkable ABDOMEN LIVER: Unremarkable GALLBLADDER AND BILE DUCTS: The gallbladder is surgically absent. PANCREAS: Unremarkable. SPLEEN: Unremarkable. ADRENAL GLANDS: Unremarkable. KIDNEYS AND URETERS: Left renal cyst. No evidence for hydronephrosis or nephrolithiasis. PELVIS BLADDER: Unremarkable REPRODUCTIVE: Unremarkable. ABDOMEN & PELVIS STOMACH AND BOWEL: Small hiatal hernia, duodenum is unremarkable. Scattered diverticula are noted thr oughout the colon. No evidence of bowel obstruction. PERITONEUM: No evidence of pneumoperitoneum or free fluid. VASCULATURE: Moderate atherosclerotic calcifications are present throughout the abdominal aorta and i ts branches. No evidence of aortic aneurysm. MUSCULOSKELETAL: No acute osseous abnormalities. Moderate disc degeneration changes are present throu ghout the thoracolumbar spine. LYMPH NODES: No gross evidence for lymphadenopathy. SOFT TISSUE/ABDOMINAL WALL: Unremarkable IMPRESSION: 1. No acute intra-abdominal or pelvic process. 2. Colonic diverticulosis and other incidental findings as detailed above.
[2022-08-23] MEDS ORDERED: ONDANSETRON 4 MG/2 ML VIAL IVP PRN (18:41)
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
[2022-08-23] MEDS ORDERED: NALOXONE 0.4 MG/ML 1 ML VIAL IV PRN (19:30)
[2022-08-23] MEDS: SODIUM CHLORIDE 0.9% 1,000 ML IV SCH (19:50)
[2022-08-23] MEDS: BUDESONIDE 0.5 MG/2 ML NEBU INHALATION SCH (20:56)
[2022-08-23] MEDS: METOPROLOL TARTRATE 25 MG TAB PO SCH (21:10)
[2022-08-23] MEDS: ATORVASTATIN 10 MG TAB PO SCH (21:15)
[2022-08-23] MEDS: HYDROmorphone 0.5 MG/0.5 ML SYRINGE IVP PRN (21:15)
[2022-08-23] MEDS: DOXYCYCLINE 100 MG CAP PO SCH (22:05)
[2022-08-24] MEDS: HYDROmorphone 0.5 MG/0.5 ML SYRINGE IVP PRN (06:49)
[2022-08-24] MEDS ORDERED: IPRATROPIUM-ALBUTEROL 3 ML NEB INHALATION SCH (08:00)
[2022-08-24] MEDS: DOXYCYCLINE 100 MG CAP PO SCH ×2 (08:56→22:56)
[2022-08-24] MEDS ORDERED: LISINOPRIL-HCTZ 20-25 MG 1 EACH TAB PO SCH (09:00)
[2022-08-24] MEDS ORDERED: POTASSIUM CHLORIDE ER 20 MEQ TAB.ER PO SCH (09:00)
[2022-08-24] MEDS ORDERED: DOXAZOSIN 2 MG TAB PO SCH (09:00)
[2022-08-24] MEDS ORDERED: allopurinoL 100 MG TAB PO SCH (09:00)
[2022-08-24] MEDS ORDERED: FUROSEMIDE 20 MG TAB PO SCH (09:00)
[2022-08-24] MEDS: METOPROLOL TARTRATE 25 MG TAB PO SCH ×2 (09:03→22:16)
[2022-08-24] MEDS: PANTOPRAZOLE 40 MG TABLET PO SCH (09:04)
[2022-08-24] MEDS: SODIUM CHLORIDE 0.9% 1,000 ML IV SCH ×2 (09:10→22:17)
[2022-08-24] MEDS ORDERED: DEXTROSE 50% SYRINGE 50 ML IVP PRN ×2 (10:13)
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
[2022-08-24 11:24] LABS: Glucose,Whole Blood 232 mg/dL (70-110)
[2022-08-24] MEDS: INSULIN ASPART (NovoLOG) 100 UNIT/ML VIAL SQ SCH ×3 (12:11→22:16)
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
--- NOTE | 2022-08-24 14:31 | US ---
EXAMINATION TYPE: US kidneys/renal and bladder DATE OF EXAM: 08/24/2022 COMPARISON: CT from yesterday CLINICAL INDICATION: Male, 87 years old with history of Acute on chronic kidney disease; EXAM MEASUREMENTS: Right Kidney: 9.7 x 5.0 x 6.1 cm Left Kidney: 9.8 x 5.3 x 5.5 cm Right Kidney: No hydronephrosis or masses seen Left Kidney: A few cystic areas with largest measuring 4.3cm inferior pole Bladder: not fully distended Increased cortical echogenicity bilaterally. There are some thin-walled cysts and cystic lesions wit h septa near 4.0 cm long axis which corresponds to recent CT. The urinary bladder is poorly visualize d and is thus suboptimally. Bilateral ureteral jets are not seen. IMPRESSION: Suboptimal study without hydronephrosis seen bilaterally.
[2022-08-24 14:57] LABS: Basophils % (A) 0 %; Eosinophils % (A) 0 %; HCT 32.1 % (39.0-53.0); HGB 9.9 gm/dL (13.0-17.5); Hypochromasia Slight; Lymphocytes # (A) 0.9 k/uL (1.0-4.8); Lymphocytes % (A) 6 %; MCH 28.2 pg (25.0-35.0); MCHC 30.8 g/dL (31.0-37.0); MCV 91.4 fL (80.0-100.0); Mean Platelet Volume 9.5; Monocytes # (A) 0.5 k/uL (0-1.0); Monocytes % (A) 3 %; Neutrophils # (A) 14.3 k/uL (1.3-7.7); Neutrophils % (A) 90 %; Platelet Count 160 k/uL (150-450); RBC 3.52 m/uL (4.30-5.90); RDW 15.3 % (11.5-15.5); WBC 15.8 k/uL (3.8-10.6)
[2022-08-24] MEDS: IPRATROPIUM-ALBUTEROL 3 ML NEB INHALATION PRN ×2 (16:18→20:54)
[2022-08-24 16:31] LABS: Glucose,Whole Blood 177 mg/dL (70-110)
[2022-08-24] MEDS ORDERED: metFORMIN 500 MG TAB PO SCH (17:30)
[2022-08-24] MEDS: BUDESONIDE 0.5 MG/2 ML NEBU INHALATION SCH (20:54)
[2022-08-24 21:56] LABS: Glucose,Whole Blood 212 mg/dL (70-110)
[2022-08-24] MEDS: APIXABAN 2.5 MG TABLET PO SCH (22:16)
[2022-08-24] MEDS: ATORVASTATIN 10 MG TAB PO SCH (22:16)
[2022-08-25 05:35] LABS: Glucose,Whole Blood 159 mg/dL (70-110)
[2022-08-25] MEDS: INSULIN ASPART (NovoLOG) 100 UNIT/ML VIAL SQ SCH ×4 (07:07→20:27)
[2022-08-25] MEDS: IPRATROPIUM-ALBUTEROL 3 ML NEB INHALATION PRN ×2 (07:51→15:45)
[2022-08-25 08:41] LABS: Basophils # (A) 0.01 X 10*3/uL (0.00-0.10); Basophils % (A) 0.1 %; Eosinophils # (A) 0.01 X 10*3/uL (0.04-0.35); Eosinophils % (A) 0.1 %; HCT 28.2 % (39.6-50.0); HGB 8.7 g/dL (13.0-17.0); Immature Grans, Automated 0.6 %; Lymphocytes # (A) 1.01 X 10*3/uL (0.90-5.00); Lymphocytes % (A) 8.7 %; MCH 28.2 pg (27.0-32.0); MCHC 30.9 g/dL (32.0-37.0); MCV 91.3 fL (80.0-97.0); Mean Platelet Volume 11.5 fL (9.5-12.2); NRBC Per 100 WBC 0 /100 WBCS (0.0-0.0); Neutrophils # (A) 9.83 X 10*3/uL (1.80-7.70); Neutrophils % (A) 84.5 %; Platelet Count 155 X 10*3/uL (140-440); RBC 3.09 X 10*6/uL (4.40-5.60); RDW 15.4 % (11.5-14.5); WBC 11.63 X 10*3/uL (4.50-10.00)
[2022-08-25] MEDS: APIXABAN 2.5 MG TABLET PO SCH ×2 (08:48→20:27)
[2022-08-25] MEDS: PANTOPRAZOLE 40 MG TABLET PO SCH (08:48)
[2022-08-25] MEDS: DOXYCYCLINE 100 MG CAP PO SCH ×2 (08:48→20:55)
[2022-08-25] MEDS: METOPROLOL TARTRATE 25 MG TAB PO SCH (08:48)
[2022-08-25] MEDS: SODIUM CHLORIDE 0.9% 1,000 ML IV SCH (08:49)
[2022-08-25] MEDS ORDERED: DILTIAZEM 5 MG/ML 5 ML VIAL IVP STA (09:06)
[2022-08-25] MEDS ORDERED: METOPROLOL TARTRATE 25 MG TAB PO STA (09:15)
[2022-08-25 09:18] LABS: African American GFR (CKD) 15.1 (60.0-200.0); Albumin 3.1 g/dL (3.8-4.9); Albumin/Globulin Ratio 1.55 (1.60-3.17); BUN/Creat Ratio 18.72 Ratio (12.00-20.00); Calcium 8.5 mg/dL (8.7-10.3); Potassium 4.3 mmol/L (3.5-5.5); Total Bilirubin 0.4 mg/dL (0.30-1.20); Total Protein 5.1 g/dL (6.2-8.2)
[2022-08-25] MEDS ORDERED: DILTIAZEM 125 MG in SODIUM CHLORIDE 0.9% 100 ML IV SCH (09:30)
[2022-08-25] MEDS ORDERED: DILTIAZEM DRIP BOLUS FROM BAG 1 MG SOLN IV ONE (09:46)
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
[2022-08-25 11:36] LABS: Glucose,Whole Blood 167 mg/dL (70-110)
--- NOTE | 2022-08-25 11:58 | P.PN ---
Subjective Progress Note Date: 08/25/22 CHIEF COMPLAINT: Abdominal pain, rectal bleeding HISTORY OF PRESENT ILLNESS: Surgical service following regards to patient's rectal bleeding. He does report left upper quadrant abdominal pain. Patient di d go into atrial fibrillation with rapid ventricular response and required a transfer to cardiac floor. Cardiology is following and adjusting medications. The patient has had no bowel movement for 2 days. Denies any further bleeding. Denies any nausea or vomiting. Afebrile. WBC is 11.6 Hgb is down from 9.9-8.7 platelets 155. stool for occult blood was positive. Patient has been restarted on his blood thinners. PHYSICAL EXAM: VITAL SIGNS: Reviewed. GENERAL: Well-developed in no acute distress. HEENT: No sclera icterus. Extraocular movements grossly intact. Moist buccal mucosa. Head is atraumatic, normocephalic. ABDOMEN: Soft. Nondistended. Tenderness with palpation of LUQ NEUROLOGIC: Alert and oriented. Cranial nerves II through XII grossly intact. ASSESSMENT: 1. Abdominal pain left upper quadrant may be related to patient's recent fall 2. Small amount of rectal bleeding resolved 3. Left renal cyst possible small amount of rigidity into that cyst PLAN: -No plans for endoscopy at this time -Possible plans for outpatient endoscopy if no further bleeding -Continue supportive care -A. fib management per cardiology Physician Armhole Baster Jumpbasting note has been reviewed by physician. Signing provider agrees with the documented findings, assessment, and plan of care. I have personally seen and examined the patient, reviewed the ROLLER MECHANIC /PAs history, exam and MDM and agree with the assessment and plan as written. Based on total visit time, I have performed more than 50% of the visit. As above: Patient has had no further bleeding. He did go into atrial fibrillation with rapid ventricular response. He feels comfortable. He says his pain is 2-3 out of 10 and is on the rib cage laterally. He says that it really started on Thursday and Thursday after he leaned his left chest against the center console of his vehicle to open a car door. His hemoglobin has drifted down further. Will monitor closely. No plans for endoscopy in patient unless anemia persists or worsens. Objective - Vital Signs Vital signs: Vital Signs Temp 98.0 F 08/25/22 09:38 Pulse 138 H 08/25/22 09:38 Resp 20 08/25/22 09:38 BP 94/63 08/25/22 10:45 Pulse Ox 95 08/25/22 09:38 FiO2 Intake & Output 08/24/22 08/25/22 08/25/22 18:59 06:59 18:59 Intake Total 950 Output Total 131 Balance 819 Intake: Intake, IV Titration 350 Amount Sodium Chloride 0.9% 1, 350 000 ml @ 75 mls/hr IV . [id number] [facility] Rx#:[id number] Oral 600 Output: Post Void Residual 131 Other: Voiding Method Toilet Toilet Toilet Urinal Urinal Urinal # Voids 5 0 - Labs CBC & Chem 7: 08/25/22 05:28 08/25/22 05:28 Labs: Abnormal Lab Results - Last 24 Hours (Table) 08/24/22 08/24/22 08/24/22 Range/Units 14:25 16:30 21:53 WBC 15.8 H (3.8-10.6) k/uL RBC 3.52 L (4.30-5.90) m/uL Hgb 9.9 L (13.0-17.5) gm/dL Hct 32.1 L (39.0-53.0) % MCHC 30.8 L (31.0-37.0) g/dL RDW (11.5-14.5) % Immature Gran # (0.00-0.04) X 10*3/uL Neutrophils # 14.3 H (1.3-7.7) k/uL Lymphocytes # 0.9 L (1.0-4.8) k/uL Eosinophils # (0.04-0.35) X 10*3/uL Sodium (135-145) mmol/L Carbon Dioxide (20.0-27.5) mmol/L BUN (9.0-27.0) mg/dL Creatinine (0.6-1.5) mg/dL Est GFR (CKD-EPI)AfAm (60.0-200.0) Est GFR (CKD-EPI)NonAf (60.0-200.0) Glucose (70-110) mg/dL POC Glucose (mg/dL) 177 H 212 H (70-110) mg/dL Hemoglobin A1c (0.0-6.0) % Calcium (8.7-10.3) mg/dL ALT (10-49) U/L Total Protein (6.2-8.2) g/dL Albumin (3.8-4.9) g/dL Albumin/Globulin Ratio (1.60-3.17) g/dL 08/25/22 08/25/22 08/25/22 Range/Units 05:28 05:28 05:28 WBC 11.63 H (3.8-10.6) k/uL RBC 3.09 L (4.30-5.90) m/uL Hgb 8.7 L (13.0-17.5) gm/dL Hct 28.2 L (39.0-53.0) % MCHC 30.9 L (31.0-37.0) g/dL RDW 15.4 H (11.5-14.5) % Immature Gran # 0.07 H (0.00-0.04) X 10*3/uL Neutrophils # 9.83 H (1.3-7.7) k/uL Lymphocytes # (1.0-4.8) k/uL Eosinophils # 0.01 L (0.04-0.35) X 10*3/uL Sodium 134 L (135-145) mmol/L Carbon Dioxide 19.0 L (20.0-27.5) mmol/L BUN 73.0 H (9.0-27.0) mg/dL Creatinine 3.9 H (0.6-1.5) mg/dL Est GFR (CKD-EPI)AfAm 15.1 L (60.0-200.0) Est GFR (CKD-EPI)NonAf 13.0 L (60.0-200.0) Glucose 132 H (70-110) mg/dL POC Glucose (mg/dL) (70-110) mg/dL Hemoglobin A1c 7.3 H (0.0-6.0) % Calcium 8.5 L (8.7-10.3) mg/dL ALT 7 L (10-49) U/L Total Protein 5.1 L (6.2-8.2) g/dL Albumin 3.1 L (3.8-4.9) g/dL Albumin/Globulin Ratio 1.55 L (1.60-3.17) g/dL 05/22/23 05/22/23 Range/Units 05:33 11:34 WBC (3.8-10.6) k/uL RBC (4.30-5.90) m/uL Hgb (13.0-17.5) gm/dL Hct (39.0-53.0) % MCHC (31.0-37.0) g/dL RDW (11.5-14.5) % Immature Gran # (0.00-0.04) X 10*3/uL Neutrophils # (1.3-7.7) k/uL Lymphocytes # (1.0-4.8) k/uL Eosinophils # (0.04-0.35) X 10*3/uL Sodium (135-145) mmol/L Carbon Dioxide (20.0-27.5) mmol/L BUN (9.0-27.0) mg/dL Creatinine (0.6-1.5) mg/dL Est GFR (CKD-EPI)AfAm (60.0-200.0) Est GFR (CKD-EPI)NonAf (60.0-200.0) Glucose (70-110) mg/dL POC Glucose (mg/dL) 159 H 167 H (70-110) mg/dL Hemoglobin A1c (0.0-6.0) % Calcium (8.7-10.3) mg/dL ALT (10-49) U/L Total Protein (6.2-8.2) g/dL Albumin (3.8-4.9) g/dL Albumin/Globulin Ratio (1.60-3.17) g/dL
--- NOTE | 2022-08-25 12:24 | P.PN ---
Subjective Patient is seen for follow-up for acute kidney injury on top of chronic kidney disease. Admitted to the hospital with complaints of abdominal pain. Diuretics and DARLYN inhibitor's currently on hold. Patient is maintained on IV fluids. Blood pressure was low on initial admission. Serum creatinine at 3.9 from 4.1 yesterday. Previous labs show serum creatinine ranging from 2.0-2.6 mg/dL for the last 3 years. No urine retention. Post void residual was 131 mL Normal saline at 75 mL an hour and also maintained on Cardizem drip for A. fib with RVR. Objective - Vital Signs Vital signs: Vital Signs Temp 98.0 F 08/25/22 09:38 Pulse 138 H 08/25/22 09:38 Resp 20 08/25/22 09:38 BP 94/63 08/25/22 10:45 Pulse Ox 95 08/25/22 09:38 FiO2 Intake & Output 08/24/22 08/25/22 08/25/22 18:59 06:59 18:59 Intake Total 950 Output Total 131 Balance 819 Intake: Intake, IV Titration 350 Amount Sodium Chloride 0.9% 1, 350 000 ml @ 75 mls/hr IV . [id number] [facility] Rx#:[id number] Oral 600 Output: Post Void Residual 131 Other: Voiding Method Toilet Toilet Toilet Urinal Urinal Urinal # Voids 5 0 - Exam Patient is awake, comfortable, no acute distress Examination of the heart S1 and S2 Examination of the lungs bilateral breath sounds are heard Abdomen is soft nontender Examination of the lower extremities shows no edema FUNERAL COUNSELOR exam grossly intact - Labs CBC & Chem 7: 08/25/22 05:28 08/25/22 05:28 Labs: Abnormal Lab Results - Last 24 Hours (Table) 08/24/22 08/24/22 08/24/22 Range/Units 14:25 16:30 21:53 WBC 15.8 H (3.8-10.6) k/uL RBC 3.52 L (4.30-5.90) m/uL Hgb 9.9 L (13.0-17.5) gm/dL Hct 32.1 L (39.0-53.0) % MCHC 30.8 L (31.0-37.0) g/dL RDW (11.5-14.5) % Immature Gran # (0.00-0.04) X 10*3/uL Neutrophils # 14.3 H (1.3-7.7) k/uL Lymphocytes # 0.9 L (1.0-4.8) k/uL Eosinophils # (0.04-0.35) X 10*3/uL Sodium (135-145) mmol/L Carbon Dioxide (20.0-27.5) mmol/L BUN (9.0-27.0) mg/dL Creatinine (0.6-1.5) mg/dL Est GFR (CKD-EPI)AfAm (60.0-200.0) Est GFR (CKD-EPI)NonAf (60.0-200.0) Glucose (70-110) mg/dL POC Glucose (mg/dL) 177 H 212 H (70-110) mg/dL Hemoglobin A1c (0.0-6.0) % Calcium (8.7-10.3) mg/dL ALT (10-49) U/L Total Protein (6.2-8.2) g/dL Albumin (3.8-4.9) g/dL Albumin/Globulin Ratio (1.60-3.17) g/dL 08/25/22 08/25/22 08/25/22 Range/Units 05:28 05:28 05:28 WBC 11.63 H (3.8-10.6) k/uL RBC 3.09 L (4.30-5.90) m/uL Hgb 8.7 L (13.0-17.5) gm/dL Hct 28.2 L (39.0-53.0) % MCHC 30.9 L (31.0-37.0) g/dL RDW 15.4 H (11.5-14.5) % Immature Gran # 0.07 H (0.00-0.04) X 10*3/uL Neutrophils # 9.83 H (1.3-7.7) k/uL Lymphocytes # (1.0-4.8) k/uL Eosinophils # 0.01 L (0.04-0.35) X 10*3/uL Sodium 134 L (135-145) mmol/L Carbon Dioxide 19.0 L (20.0-27.5) mmol/L BUN 73.0 H (9.0-27.0) mg/dL Creatinine 3.9 H (0.6-1.5) mg/dL Est GFR (CKD-EPI)AfAm 15.1 L (60.0-200.0) Est GFR (CKD-EPI)NonAf 13.0 L (60.0-200.0) Glucose 132 H (70-110) mg/dL POC Glucose (mg/dL) (70-110) mg/dL Hemoglobin A1c 7.3 H (0.0-6.0) % Calcium 8.5 L (8.7-10.3) mg/dL ALT 7 L (10-49) U/L Total Protein 5.1 L (6.2-8.2) g/dL Albumin 3.1 L (3.8-4.9) g/dL Albumin/Globulin Ratio 1.55 L (1.60-3.17) g/dL 08/25/22 08/25/22 Range/Units 05:33 11:34 WBC (3.8-10.6) k/uL RBC (4.30-5.90) m/uL Hgb (13.0-17.5) gm/dL Hct (39.0-53.0) % MCHC (31.0-37.0) g/dL RDW (11.5-14.5) % Immature Gran # (0.00-0.04) X 10*3/uL Neutrophils # (1.3-7.7) k/uL Lymphocytes # (1.0-4.8) k/uL Eosinophils # (0.04-0.35) X 10*3/uL Sodium (135-145) mmol/L Carbon Dioxide (20.0-27.5) mmol/L BUN (9.0-27.0) mg/dL Creatinine (0.6-1.5) mg/dL Est GFR (CKD-EPI)AfAm (60.0-200.0) Est GFR (CKD-EPI)NonAf (60.0-200.0) Glucose (70-110) mg/dL POC Glucose (mg/dL) 159 H 167 H (70-110) mg/dL Hemoglobin A1c (0.0-6.0) % Calcium (8.7-10.3) mg/dL ALT (10-49) U/L Total Protein (6.2-8.2) g/dL Albumin (3.8-4.9) g/dL Albumin/Globulin Ratio (1.60-3.17) g/dL Assessment and Plan Assessment: 1. Acute kidney injury secondary to ATN secondary to hypotension and further worsened with the use of diuretics and diarrhea. Creatinine 4.17 on admission. No hydronephrosis noted on CAT scan. 2. Chronic kidney disease stage IV with baseline creatinine in the range of 2- 2.5 secondary to nephrosclerosis/diabetic kidney disease. Trace protein on UA. Does not follow with nephrology. 3. Abdominal pain being followed by surgery. No intervention planned. No acute findings noted on CT of the abdomen and pelvis. 4. Chronic systolic CHF with ejection fraction of 45% with mild to moderate tricuspid regurgitation. 5. Diabetes mellitus. Plan: Continue with IV fluids Continue off of DARLYN inhibitor's Continue to avoid nephrotoxic agents Patient will need follow-up as outpatient for CK D and acute kidney injury.
--- NOTE | 2022-08-25 14:06 | P.PN ---
Subjective Progress Note Date: 08/25/22 patient is a 87-year-old gentleman with past medical history significant for atrial fibrillation on Eliquis who presented to the ER because of abdominal pain. Patient stated abdominal pain started last night, was located in the left lower quadrant, achy in nature, intermittent, no aggravating or relieving factors associated with it. Patient also complains of diarrhea. Denies any nausea or vomiting. Patient did notice some blood in his stools Initial workup in the ER showed white count of 20.4, hemoglobin 11.2, platelet count 198, sodium 136, potassium 5, BUN 75, creatinine 4.17 CT abdominal and pelvis done showed no acute intra-abdominal or pelvic process, showed colonic diverticulosis Patient was admitted to internal medicine service for further evaluation and treatment 08/25. Patient seen and examined. Patient went into A. fib with RVR this morning, patient had to be transferred to telemetry unit. Patient was started on Cardizem drip. Denies any shortness of breath at this time REVIEW OF SYSTEMS: CONSTITUTIONAL: No fever, no malaise,. CARDIOVASCULAR: no palpitations, no syncope. PULMONARY: No shortness of breath, no cough, GASTROINTESTINAL: No diarrhea, no nausea, no vomiting, no abdominal pain. NEUROLOGICAL: No headaches, no weakness, PHYSICAL EXAMINATION: GENERAL: The patient is alert and oriented x3, not in any acute distress. Well developed, well nourished. HEENT: Pupils are round and equally reacting to light. EOMI. No scleral icterus. No conjunctival pallor. Normocephalic, atraumatic. No pharyngeal erythema. No thyromegaly. CARDIOVASCULAR: S1 and S2 present. IR Regular in rate and rhythm PULMONARY: Chest is clear to auscultation, no wheezing or crackles. ABDOMEN: Soft, nontender, nondistended, normoactive bowel sounds. No palpable organomegaly. MUSCULOSKELETAL: No joint swelling or deformity. EXTREMITIES: No cyanosis, clubbing, or pedal edema. NEUROLOGICAL: Gross neurological examination did not reveal any focal deficits. SKIN: No rashes. Assessment and plan Abdominal plain GI bleed Lactic acidosis resolved Paroxysmal Atrial fibrillation with RVR Acute kidney injury secondary to ATN secondary to hypotension and further worsened with the use of diuretics and diarrhea. Chronic kidney disease stage IV with baseline creatinine in the range of 2-2.5 secondary to nephrosclerosis/diabetic kidney disease. Chronic systolic CHF with ejection fraction of 45% with mild to moderate tricuspid regurgitation. Diabetes mellitus. Monitor vital signs Monitor CBC Monitor CMP Continue telemetry monitoring Continue Cardizem drip Continue with IV fluids Continue off of DARLYN inhibitor's Continue to avoid nephrotoxic agents Increase metoprolol 200 mg twice a day Surgery evaluated the patient, no plan for any endoscopy at this time Follow-up in nephrology recommendations DVT prophylaxis: Objective - Vital Signs Vital signs: Vital Signs Temp 98.0 F 08/25/22 09:38 Pulse 144 H 08/25/22 13:21 Resp 20 08/25/22 12:11 BP 91/69 08/25/22 12:11 Pulse Ox 96 08/25/22 12:11 FiO2 Intake & Output 08/24/22 08/25/22 08/25/22 18:59 06:59 18:59 Intake Total 950 Output Total 131 Balance 819 Intake: Intake, IV Titration 350 Amount Sodium Chloride 0.9% 1, 350 000 ml @ 75 mls/hr IV . [id number] [facility] Rx#:[id number] Oral 600 Output: Post Void Residual 131 Other: Voiding Method Toilet Toilet Toilet Urinal Urinal Urinal # Voids 5 0 1 - Labs CBC & Chem 7: 08/25/22 05:28 08/25/22 05:28 Labs: Abnormal Lab Results - Last 24 Hours (Table) 08/24/22 08/24/22 08/24/22 Range/Units 14:25 16:30 21:53 WBC 15.8 H (3.8-10.6) k/uL RBC 3.52 L (4.30-5.90) m/uL Hgb 9.9 L (13.0-17.5) gm/dL Hct 32.1 L (39.0-53.0) % MCHC 30.8 L (31.0-37.0) g/dL RDW (11.5-14.5) % Immature Gran # (0.00-0.04) X 10*3/uL Neutrophils # 14.3 H (1.3-7.7) k/uL Lymphocytes # 0.9 L (1.0-4.8) k/uL Eosinophils # (0.04-0.35) X 10*3/uL Sodium (135-145) mmol/L Carbon Dioxide (20.0-27.5) mmol/L BUN (9.0-27.0) mg/dL Creatinine (0.6-1.5) mg/dL Est GFR (CKD-EPI)AfAm (60.0-200.0) Est GFR (CKD-EPI)NonAf (60.0-200.0) Glucose (70-110) mg/dL POC Glucose (mg/dL) 177 H 212 H (70-110) mg/dL Hemoglobin A1c (0.0-6.0) % Calcium (8.7-10.3) mg/dL ALT (10-49) U/L Total Protein (6.2-8.2) g/dL Albumin (3.8-4.9) g/dL Albumin/Globulin Ratio (1.60-3.17) g/dL 08/25/22 08/25/22 08/25/22 Range/Units 05:28 05:28 05:28 WBC 11.63 H (3.8-10.6) k/uL RBC 3.09 L (4.30-5.90) m/uL Hgb 8.7 L (13.0-17.5) gm/dL Hct 28.2 L (39.0-53.0) % MCHC 30.9 L (31.0-37.0) g/dL RDW 15.4 H (11.5-14.5) % Immature Gran # 0.07 H (0.00-0.04) X 10*3/uL Neutrophils # 9.83 H (1.3-7.7) k/uL Lymphocytes # (1.0-4.8) k/uL Eosinophils # 0.01 L (0.04-0.35) X 10*3/uL Sodium 134 L (135-145) mmol/L Carbon Dioxide 19.0 L (20.0-27.5) mmol/L BUN 73.0 H (9.0-27.0) mg/dL Creatinine 3.9 H (0.6-1.5) mg/dL Est GFR (CKD-EPI)AfAm 15.1 L (60.0-200.0) Est GFR (CKD-EPI)NonAf 13.0 L (60.0-200.0) Glucose 132 H (70-110) mg/dL POC Glucose (mg/dL) (70-110) mg/dL Hemoglobin A1c 7.3 H (0.0-6.0) % Calcium 8.5 L (8.7-10.3) mg/dL ALT 7 L (10-49) U/L Total Protein 5.1 L (6.2-8.2) g/dL Albumin 3.1 L (3.8-4.9) g/dL Albumin/Globulin Ratio 1.55 L (1.60-3.17) g/dL 08/25/22 08/25/22 Range/Units 05:33 11:34 WBC (3.8-10.6) k/uL RBC (4.30-5.90) m/uL Hgb (13.0-17.5) gm/dL Hct (39.0-53.0) % MCHC (31.0-37.0) g/dL RDW (11.5-14.5) % Immature Gran # (0.00-0.04) X 10*3/uL Neutrophils # (1.3-7.7) k/uL Lymphocytes # (1.0-4.8) k/uL Eosinophils # (0.04-0.35) X 10*3/uL Sodium (135-145) mmol/L Carbon Dioxide (20.0-27.5) mmol/L BUN (9.0-27.0) mg/dL Creatinine (0.6-1.5) mg/dL Est GFR (CKD-EPI)AfAm (60.0-200.0) Est GFR (CKD-EPI)NonAf (60.0-200.0) Glucose (70-110) mg/dL POC Glucose (mg/dL) 159 H 167 H (70-110) mg/dL Hemoglobin A1c (0.0-6.0) % Calcium (8.7-10.3) mg/dL ALT (10-49) U/L Total Protein (6.2-8.2) g/dL Albumin (3.8-4.9) g/dL Albumin/Globulin Ratio (1.60-3.17) g/dL
[2022-08-25] MEDS ORDERED: DEXTROSE 5% IN WATER 100 ML with AMIODARONE 150 MG IV ONE (14:30)
[2022-08-25] MEDS ORDERED: AMIODARONE 360 MG in DEXTROSE 5% IN WATER 200 ML IV ONE ×2 (14:45)
[2022-08-25 16:35] LABS: Glucose,Whole Blood 202 mg/dL (70-110)
[2022-08-25] MEDS: BUDESONIDE 0.5 MG/2 ML NEBU INHALATION SCH (19:40)
[2022-08-25 20:17] LABS: Glucose,Whole Blood 196 mg/dL (70-110)
[2022-08-25] MEDS: METOPROLOL TARTRATE 50 MG TAB PO SCH (20:25)
[2022-08-25] MEDS: ATORVASTATIN 10 MG TAB PO SCH (20:26)
[2022-08-25] MEDS: AMIODARONE 450 MG in DEXTROSE 5% IN WATER 250 ML IV SCH ×2 (20:27)
[2022-08-26] MEDS: SODIUM CHLORIDE 0.9% 1,000 ML IV SCH ×2 (05:01→06:23)
[2022-08-26 06:18] LABS: Glucose,Whole Blood 161 mg/dL (70-110)
[2022-08-26] MEDS: INSULIN ASPART (NovoLOG) 100 UNIT/ML VIAL SQ SCH ×4 (06:23→20:26)
[2022-08-26] MEDS: PANTOPRAZOLE 40 MG TABLET PO SCH (07:29)
[2022-08-26] MEDS: METOPROLOL TARTRATE 50 MG TAB PO SCH ×2 (07:29→20:25)
[2022-08-26] MEDS: APIXABAN 2.5 MG TABLET PO SCH ×2 (07:29→20:26)
[2022-08-26] MEDS: IPRATROPIUM-ALBUTEROL 3 ML NEB INHALATION PRN ×4 (08:18→22:17)
[2022-08-26] MEDS: DOXYCYCLINE 100 MG CAP PO SCH ×2 (08:44→20:26)
[2022-08-26 09:24] LABS: Basophils % (A) 0 %; Eosinophils % (A) 0 %; HCT 30.7 % (39.0-53.0); HGB 9.7 gm/dL (13.0-17.5); Hypochromasia Slight; Lymphocytes # (A) 0.7 k/uL (1.0-4.8); Lymphocytes % (A) 5 %; MCH 28.5 pg (25.0-35.0); MCHC 31.4 g/dL (31.0-37.0); MCV 90.7 fL (80.0-100.0); Mean Platelet Volume 8.6; Monocytes # (A) 0.5 k/uL (0-1.0); Monocytes % (A) 4 %; Neutrophils # (A) 11.5 k/uL (1.3-7.7); Neutrophils % (A) 90 %; Platelet Count 168 k/uL (150-450); RBC 3.39 m/uL (4.30-5.90); RDW 15.2 % (11.5-15.5); WBC 12.8 k/uL (3.8-10.6)
[2022-08-26] MEDS: LIDOCAINE 5% PATCH TOPICAL SCH (09:59)
[2022-08-26 10:36] LABS: Calcium 8.1 mg/dL (8.4-10.2)
[2022-08-26] MEDS: AMIODARONE 450 MG in DEXTROSE 5% IN WATER 250 ML IV SCH ×2 (10:50)
[2022-08-26 11:25] LABS: Glucose,Whole Blood 209 mg/dL (70-110)
--- NOTE | 2022-08-26 11:43 | P.PN ---
Subjective Patient is seen for follow-up for acute kidney injury on top of chronic kidney disease. Admitted to the hospital with complaints of abdominal pain. Diuretics and DARLYN inhibitor's currently on hold. Patient is maintained on IV fluids. Blood pressure was low on initial admission. Serum creatinine at 2.8 from 4.1 on initial admission. Previous labs show serum creatinine ranging from 2.0-2.6 mg/dL for the last 3 years. No urine retention. Post void residual was 131 mL Normal saline at 75 mL an hour and also maintained on Cardizem drip for A. fib with RVR. Left upper abdominal and lower chest pain is better. Objective - Vital Signs Vital signs: Vital Signs Temp 98.0 F 08/26/22 07:27 Pulse 85 08/26/22 11:36 Resp 20 08/26/22 07:27 BP 112/78 08/26/22 07:27 Pulse Ox 96 08/26/22 08:18 FiO2 Intake & Output 08/25/22 08/26/22 08/26/22 18:59 06:59 18:59 Intake Total 419.727 Balance 419.727 Intake: Intake, IV Titration 239.727 Amount Amiodarone 450 mg In 239.727 Dextrose 5% in Water 250 ml @ 0.5 MG/MIN 16.667 mls/hr IV .Q15H [facility] Rx#: [id number] Oral 180 Other: Voiding Method Toilet Toilet Toilet Urinal Urinal # Voids 2 2 1 - Exam Patient is awake, comfortable, no acute distress Examination of the heart S1 and S2 Examination of the lungs bilateral breath sounds are heard Abdomen is soft nontender Examination of the lower extremities shows no edema ACCOUNT SUPPORT REP exam grossly intact - Labs CBC & Chem 7: 08/26/22 08:58 08/26/22 08:58 Labs: Abnormal Lab Results - Last 24 Hours (Table) 08/25/22 08/25/22 08/26/22 Range/Units 16:34 20:15 06:17 WBC (3.8-10.6) k/uL RBC (4.30-5.90) m/uL Hgb (13.0-17.5) gm/dL Hct (39.0-53.0) % Neutrophils # (1.3-7.7) k/uL Lymphocytes # (1.0-4.8) k/uL Sodium (137-145) mmol/L Carbon Dioxide (22-30) mmol/L BUN (9-20) mg/dL Creatinine (0.66-1.25) mg/dL Glucose (74-99) mg/dL POC Glucose (mg/dL) 202 H 196 H 161 H (70-110) mg/dL Calcium (8.4-10.2) mg/dL 08/26/22 08/26/22 08/26/22 Range/Units 08:58 08:58 11:24 WBC 12.8 H (3.8-10.6) k/uL RBC 3.39 L (4.30-5.90) m/uL Hgb 9.7 L (13.0-17.5) gm/dL Hct 30.7 L (39.0-53.0) % Neutrophils # 11.5 H (1.3-7.7) k/uL Lymphocytes # 0.7 L (1.0-4.8) k/uL Sodium 134 L (137-145) mmol/L Carbon Dioxide 18 L (22-30) mmol/L BUN 63 H (9-20) mg/dL Creatinine 2.85 H (0.66-1.25) mg/dL Glucose 199 H (74-99) mg/dL POC Glucose (mg/dL) 209 H (70-110) mg/dL Calcium 8.1 L (8.4-10.2) mg/dL Assessment and Plan Assessment: 1. Acute kidney injury secondary to ATN secondary to hypotension and further worsened with the use of diuretics and diarrhea. Creatinine 4.17 on admission, down to 2.8 today. No hydronephrosis noted on CAT scan. 2. Chronic kidney disease stage IV with baseline creatinine in the range of 2- 2.5 secondary to nephrosclerosis/diabetic kidney disease. Trace protein on UA. Does not follow with nephrology. 3. Abdominal pain being followed by surgery. No intervention planned. No acute findings noted on CT of the abdomen and pelvis. 4. Chronic systolic CHF with ejection fraction of 45% with mild to moderate tricuspid regurgitation. 5. Diabetes mellitus. Plan: Continue with IV fluids Continue off of DARLYN inhibitor's Continue to avoid nephrotoxic agents Patient will need follow-up as outpatient for CK D and acute kidney injury.
--- NOTE | 2022-08-26 11:55 | P.PN ---
Subjective Progress Note Date: 08/26/22 CHIEF COMPLAINT: Abdominal pain, rectal bleeding HISTORY OF PRESENT ILLNESS: Surgical service following regards to patient's rectal bleeding. Patient denies any blood in his stools. He denies any abdomin al pain. Patient complaining more of left rib cage pain. He did have injury to that area. He feels that his ribs are bruised. Patient's heart rate is controlled. Patient followed by cardiology for his A. fib RVR. He was restarted on Eliquis yesterday. WBC is 12.8 Hgb up from 8.7-9.7 platelets 168 creatinine 2.5 PHYSICAL EXAM: VITAL SIGNS: Reviewed. GENERAL: Well-developed in no acute distress. HEENT: No sclera icterus. Extraocular movements grossly intact. Moist buccal mucosa. Head is atraumatic, normocephalic. Chest: Tenderness with palpation of the lower left rib cage ABDOMEN: Soft. Nondistended. Nontender NEUROLOGIC: Alert and oriented. Cranial nerves II through XII grossly intact. ASSESSMENT: 1. Abdominal pain left upper quadrant may be related to patient's recent fall 2. Small amount of rectal bleeding resolved 3. Left renal cyst possible small amount of rigidity into that cyst PLAN: -No plans for endoscopy at this time -Possible plans for outpatient endoscopy if no further bleeding -Continue supportive care -A. fib management per cardiology -Lidoderm patch added for rib pain. Possibility of bruised ribs. Physician Cargo Vessel Stewardess note has been reviewed by physician. Signing provider agrees with the documented findings, assessment, and plan of care. I have personally seen and examined the patient, reviewed the IT AUDITOR /PAs history, exam and MDM and agree with the assessment and plan as written. Based on total visit time, I have performed more than 50% of the visit. As above: Patient doing well today. No further bleeding or pain. We'll sign off. Follow-up as outpatient to discuss possible outpatient endoscopy. Objective - Vital Signs Vital signs: Vital Signs Temp 98.0 F 08/26/22 07:27 Pulse 85 08/26/22 11:36 Resp 22 08/26/22 11:00 BP 114/73 08/26/22 11:00 Pulse Ox 94 L 08/26/22 11:00 FiO2 Intake & Output 08/25/22 08/26/22 08/26/22 18:59 06:59 18:59 Intake Total 419.727 Balance 419.727 Intake: Intake, IV Titration 239.727 Amount Amiodarone 450 mg In 239.727 Dextrose 5% in Water 250 ml @ 0.5 MG/MIN 16.667 mls/hr IV .Q15H [facility] Rx#: [id number] Oral 180 Other: Voiding Method Toilet Toilet Toilet Urinal Urinal # Voids 2 2 1 - Labs CBC & Chem 7: 08/26/22 08:58 08/26/22 08:58 Labs: Abnormal Lab Results - Last 24 Hours (Table) 08/25/22 08/25/22 08/26/22 Range/Units 16:34 20:15 06:17 WBC (3.8-10.6) k/uL RBC (4.30-5.90) m/uL Hgb (13.0-17.5) gm/dL Hct (39.0-53.0) % Neutrophils # (1.3-7.7) k/uL Lymphocytes # (1.0-4.8) k/uL Sodium (137-145) mmol/L Carbon Dioxide (22-30) mmol/L BUN (9-20) mg/dL Creatinine (0.66-1.25) mg/dL Glucose (74-99) mg/dL POC Glucose (mg/dL) 202 H 196 H 161 H (70-110) mg/dL Calcium (8.4-10.2) mg/dL 08/26/22 08/26/22 08/26/22 Range/Units 08:58 08:58 11:24 WBC 12.8 H (3.8-10.6) k/uL RBC 3.39 L (4.30-5.90) m/uL Hgb 9.7 L (13.0-17.5) gm/dL Hct 30.7 L (39.0-53.0) % Neutrophils # 11.5 H (1.3-7.7) k/uL Lymphocytes # 0.7 L (1.0-4.8) k/uL Sodium 134 L (137-145) mmol/L Carbon Dioxide 18 L (22-30) mmol/L BUN 63 H (9-20) mg/dL Creatinine 2.85 H (0.66-1.25) mg/dL Glucose 199 H (74-99) mg/dL POC Glucose (mg/dL) 209 H (70-110) mg/dL Calcium 8.1 L (8.4-10.2) mg/dL
--- NOTE | 2022-08-26 12:38 | XR ---
EXAMINATION TYPE: XR ribs LT DATE OF EXAM: 08/26/2022 COMPARISON: 01/18/2022 HISTORY: 87-year-old male pain, injury TECHNIQUE: 4 views FINDINGS: There appears to be significant loss of joint space along the inferior aspect of the glenoh umeral joint. No displaced left rib fracture is seen. Loop recorder device on the left side of the chest. Possible patchy left basilar opacity. IMPRESSION: 1. No displaced left rib fracture is seen. 2. Possible patchy left basilar atelectasis and/or infiltrate. Correlate for any respiratory signs/sy mptoms that would warrant a dedicated chest radiograph. 3. 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
--- NOTE | 2022-08-26 13:41 | P.PN ---
Subjective Progress Note Date: 08/26/22 patient is a 87-year-old gentleman with past medical history significant for atrial fibrillation on Eliquis who presented to the ER because of abdominal pain. Patient stated abdominal pain started last night, was located in the left lower quadrant, achy in nature, intermittent, no aggravating or relieving factors associated with it. Patient also complains of diarrhea. Denies any nausea or vomiting. Patient did notice some blood in his stools Initial workup in the ER showed white count of 20.4, hemoglobin 11.2, platelet count 198, sodium 136, potassium 5, BUN 75, creatinine 4.17 CT abdominal and pelvis done showed no acute intra-abdominal or pelvic process, showed colonic diverticulosis Patient was admitted to internal medicine service for further evaluation and treatment 08/25. Patient seen and examined. Patient went into A. fib with RVR this morning, patient had to be transferred to telemetry unit. Patient was started on Cardizem drip. Denies any shortness of breath at this time 08/26. Patient seen and examined. WBC this morning is 12.8, hemoglobin is 9.7, sodium is 134, potassium is 4, BUN is 63, creatinine is 2.85. Vital signs stable. Renal functions are improving. at the bedside, all questions answered REVIEW OF SYSTEMS: CONSTITUTIONAL: No fever, no malaise,. CARDIOVASCULAR: no palpitations, no syncope. PULMONARY: No shortness of breath, no cough, GASTROINTESTINAL: No diarrhea, no nausea, no vomiting, no abdominal pain. NEUROLOGICAL: No headaches, no weakness, PHYSICAL EXAMINATION: GENERAL: The patient is alert and oriented x3, not in any acute distress. Well developed, well nourished. HEENT: Pupils are round and equally reacting to light. EOMI. No scleral icterus. No conjunctival pallor. Normocephalic, atraumatic. No pharyngeal erythema. No thyromegaly. CARDIOVASCULAR: S1 and S2 present. IR Regular in rate and rhythm PULMONARY: Chest is clear to auscultation, no wheezing or crackles. ABDOMEN: Soft, nontender, nondistended, normoactive bowel sounds. No palpable organomegaly. MUSCULOSKELETAL: No joint swelling or deformity. EXTREMITIES: No cyanosis, clubbing, or pedal edema. NEUROLOGICAL: Gross neurological examination did not reveal any focal deficits. SKIN: No rashes. Assessment and plan Abdominal plain GI bleed Lactic acidosis resolved Paroxysmal Atrial fibrillation with RVR Acute kidney injury secondary to ATN secondary to hypotension and further worsened with the use of diuretics and diarrhea. Chronic kidney disease stage IV with baseline creatinine in the range of 2-2.5 secondary to nephrosclerosis/diabetic kidney disease. Chronic systolic CHF with ejection fraction of 45% with mild to moderate tricuspid regurgitation. Diabetes mellitus. Monitor vital signs Monitor CBC Monitor CMP Continue telemetry monitoring Continue amiodarone drip Continue with IV fluids Continue off of DARLYN inhibitor's Continue to avoid nephrotoxic agents continue metoprolol 100 mg twice a day Surgery evaluated the patient, no plan for any endoscopy at this time Follow-up in nephrology recommendations DVT prophylaxis: Objective - Vital Signs Vital signs: Vital Signs Temp 98.0 F 08/26/22 07:27 Pulse 99 08/26/22 08:28 Resp 20 08/26/22 07:27 BP 112/78 08/26/22 07:27 Pulse Ox 96 08/26/22 08:18 FiO2 Intake & Output 08/25/22 08/26/22 08/26/22 18:59 06:59 18:59 Intake Total 180 Balance 180 Intake: Oral 180 Other: Voiding Method Toilet Toilet Toilet Urinal Urinal # Voids 2 2 1 - Labs CBC & Chem 7: 08/26/22 08:58 08/26/22 08:58 Labs: Abnormal Lab Results - Last 24 Hours (Table) 08/25/22 08/25/22 08/25/22 Range/Units 11:34 16:34 20:15 WBC (3.8-10.6) k/uL RBC (4.30-5.90) m/uL Hgb (13.0-17.5) gm/dL Hct (39.0-53.0) % Neutrophils # (1.3-7.7) k/uL Lymphocytes # (1.0-4.8) k/uL Sodium (137-145) mmol/L Carbon Dioxide (22-30) mmol/L BUN (9-20) mg/dL Creatinine (0.66-1.25) mg/dL Glucose (74-99) mg/dL POC Glucose (mg/dL) 167 H 202 H 196 H (70-110) mg/dL Calcium (8.4-10.2) mg/dL 08/26/22 08/26/22 08/26/22 Range/Units 06:17 08:58 08:58 WBC 12.8 H (3.8-10.6) k/uL RBC 3.39 L (4.30-5.90) m/uL Hgb 9.7 L (13.0-17.5) gm/dL Hct 30.7 L (39.0-53.0) % Neutrophils # 11.5 H (1.3-7.7) k/uL Lymphocytes # 0.7 L (1.0-4.8) k/uL Sodium 134 L (137-145) mmol/L Carbon Dioxide 18 L (22-30) mmol/L BUN 63 H (9-20) mg/dL Creatinine 2.85 H (0.66-1.25) mg/dL Glucose 199 H (74-99) mg/dL POC Glucose (mg/dL) 161 H (70-110) mg/dL Calcium 8.1 L (8.4-10.2) mg/dL
--- NOTE | 2022-08-26 14:13 | P.PN ---
Subjective Progress Note Date: 08/26/22 HISTORY OF PRESENT ILLNESS: This is a 87-year-old male with a past medical history significant for pers istent atrial fibrillation, cardiomyopathy with recent ejection fraction of 45%, hypertension, hyperlipidemia, diabetes, and former nicotine dependence. Patient follows in the office with Dr. Gilliland. We have been asked to see the patient in consultation for A. fib with RVR. Patient examined at the bedside. Patient presented to the hospital for chief complaint of abdominal pain. He is being followed by general surgery. This morning, the patient developed A. fib with RVR and cardiology was consulted. The patient denies any chest pain or pressure. He denies any shortness of breath. He denies any palpitations. He continues to have some abdominal pain this morning. It is noted that the cristiana pillai's ejection fraction in July was 45%. Previous to this in 2020 he had a normal EF. Upon review of EKGs over the past couple years, the patient seems to be in A. fib with RVR persistently, which may be contributing to his cardiomyopathy. The patient underwent event monitor from the cardiology office from 08/05/2022 until 08/11/2022. The patient's average rate was 112 bpm, minimum of 80 bpm, and maximum of 149 bpm. * EKG reveals A. fib with RVR * Laboratory data: WC 11.63. Hemoglobin 8.7. Platelet count 155. Sodium 134. Potassium 4.3. BUN 73. Creatinine 3.9. * Current home cardiac medications include Lasix 20 mg daily, metoprolol tartrate 75 mg twice a day, lisinopril-hydrochlorothiazide 20-25mg daily, lovastatin 40 mg at night, and Eliquis 2.5mg BID * Most recent echocardiogram obtained in July 2022 revealed ejection fraction 45%, mild to moderate TR * Cardiac catheterization history: 2016 revealing 50% mid circumflex lesion, right dominant system, normal EF 08/26 Patient was transferred from [facility] to cardiac stepdown unit yesterday due to A. fib with RVR. Yesterday afternoon heart rate was running in the 160s despite use of IV Cardizem and this was changed to amiodarone around 2 in the afternoon. Today he is running 100-120s and is still going higher with ambulation. Blood pressure 114/70. Repeat blood work reveals hemoglobin of 9.7, WBC 12.8. Sodium 104, potassium 4, BUN 63 and creatinine 2.85. Rib x-rays revealed nondisplaced left rib fracture. Possible patchy left basilar atelectasis and lower infiltrate. 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 TSH came back normal at 0.879. PHYSICAL EXAM: VITAL SIGNS: Reviewed. GENERAL: Well-developed in no acute distress. HEENT: Head is normocephalic. Pupils are equal, round. Sclerae anicteric. Mucous membranes of the mouth are moist. Neck supple. No JVD or thyromegaly LUNGS: Respirations even and unlabored. Lungs essentially clear to auscultation bilaterally. HEART: Tachycardic. Irregular rate and rhythm. S1 and S2 heard. ABDOMEN: Soft. Nondistended. Nontender. EXTREMITIES: Normal range of motion. No clubbing or cyanosis. Peripheral pulses intact. No lower extremity edema NEUROLOGIC: Awake and alert. Oriented x 3. 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 Bermudez recommending AV node ablation and PPM in the future. This will be discussed with Dr. Gilliland Further recommendations pending patient course Nurse practitioner note has been reviewed by physician. Signing provider agrees with the documented findings, assessment, and plan of care. Objective - Vital Signs Vital signs: Vital Signs Temp 98.0 F 08/26/22 07:27 Pulse 85 08/26/22 11:36 Resp 08/26/22 11:00 BP 114/73 08/26/22 11:00 Pulse Ox 94 L 08/26/22 11:00 FiO2 Intake & Output 08/25/22 08/26/22 08/26/22 18:59 06:59 18:59 Intake Total 419.727 Balance 419.727 Intake: Intake, IV Titration 239.727 Amount Amiodarone 450 mg In 239.727 Dextrose 5% in Water 250 ml @ 0.5 MG/MIN 16.667 mls/hr IV .Q15H [facility] Rx#: [id number] Oral 180 Other: Voiding Method Toilet Toilet Toilet Urinal Urinal # Voids 2 2 1 - Labs CBC & Chem 7: 08/26/22 08:58 08/26/22 08:58 Labs: Abnormal Lab Results - Last 24 Hours (Table) 08/25/22 08/25/22 08/26/22 Range/Units 16:34 20:15 06:17 WBC (3.8-10.6) k/uL RBC (4.30-5.90) m/uL Hgb (13.0-17.5) gm/dL Hct (39.0-53.0) % Neutrophils # (1.3-7.7) k/uL Lymphocytes # (1.0-4.8) k/uL Sodium (137-145) mmol/L Carbon Dioxide (22-30) mmol/L BUN (9-20) mg/dL Creatinine (0.66-1.25) mg/dL Glucose (74-99) mg/dL POC Glucose (mg/dL) 202 H 196 H 161 H (70-110) mg/dL Calcium (8.4-10.2) mg/dL 08/26/22 08/26/22 08/26/22 Range/Units 08:58 08:58 11:24 WBC 12.8 H (3.8-10.6) k/uL RBC 3.39 L (4.30-5.90) m/uL Hgb 9.7 L (13.0-17.5) gm/dL Hct 30.7 L (39.0-53.0) % Neutrophils # 11.5 H (1.3-7.7) k/uL Lymphocytes # 0.7 L (1.0-4.8) k/uL Sodium 134 L (137-145) mmol/L Carbon Dioxide 18 L (22-30) mmol/L BUN 63 H (9-20) mg/dL Creatinine 2.85 H (0.66-1.25) mg/dL Glucose 199 H (74-99) mg/dL POC Glucose (mg/dL) 209 H (70-110) mg/dL Calcium 8.1 L (8.4-10.2) mg/dL
[2022-08-26 16:52] LABS: Glucose,Whole Blood 237 mg/dL (70-110)
[2022-08-26 20:18] LABS: Glucose,Whole Blood 230 mg/dL (70-110)
[2022-08-26] MEDS: ATORVASTATIN 10 MG TAB PO SCH (20:26)
[2022-08-26] MEDS: BUDESONIDE 0.5 MG/2 ML NEBU INHALATION SCH (22:17)
[2022-08-27] MEDS: SODIUM CHLORIDE 0.9% 1,000 ML IV SCH (05:40)
[2022-08-27 05:41] LABS: Glucose,Whole Blood 163 mg/dL (70-110)
[2022-08-27] MEDS: INSULIN ASPART (NovoLOG) 100 UNIT/ML VIAL SQ SCH ×4 (06:04→21:18)
[2022-08-27] MEDS: APIXABAN 2.5 MG TABLET PO SCH ×2 (08:24→21:18)
[2022-08-27] MEDS: AMIODARONE 200 MG TAB PO SCH ×2 (08:24→21:17)
[2022-08-27] MEDS: DOXYCYCLINE 100 MG CAP PO SCH ×2 (08:24→21:17)
[2022-08-27] MEDS: PANTOPRAZOLE 40 MG TABLET PO SCH (08:24)
[2022-08-27] MEDS: LIDOCAINE 5% PATCH TOPICAL SCH (08:24)
[2022-08-27] MEDS: METOPROLOL TARTRATE 50 MG TAB PO SCH ×2 (08:24→21:18)
[2022-08-27] MEDS ORDERED: FUROSEMIDE 10 MG/ML 4 ML VIAL IV STA (09:58)
[2022-08-27] MEDS: IPRATROPIUM-ALBUTEROL 3 ML NEB INHALATION PRN ×4 (10:18→21:02)
--- NOTE | 2022-08-27 10:44 | P.PN ---
Subjective Patient is seen for follow-up for acute kidney injury on top of chronic kidney disease. Admitted to the hospital with complaints of abdominal pain. Diuretics and DARLYN inhibitor's currently on hold. Patient is maintained on IV fluids. Blood pressure was low on initial admission. Serum creatinine at 2.8 from 4.1 on initial admission. Previous labs show serum creatinine ranging from 2.0-2.6 mg/dL for the last 3 years. No urine retention. Post void residual was 131 mL Normal saline at 75 mL an hour Left upper abdominal and lower chest pain is better. Complaining of mild shortness of breath today. Patient is sitting up in a bedside chair. Objective - Vital Signs Vital signs: Vital Signs Temp 98.9 F 08/27/22 08:20 Pulse 90 08/27/22 10:37 Resp 21 08/27/22 08:20 BP 134/76 08/27/22 08:20 Pulse Ox 97 08/27/22 10:19 FiO2 Intake & Output 08/26/22 08/27/22 08/27/22 18:59 06:59 18:59 Intake Total 779.727 350 Balance 779.727 350 Intake: Intake, IV Titration 239.727 Amount Amiodarone 450 mg In 239.727 Dextrose 5% in Water 250 ml @ 0.5 MG/MIN 16.667 mls/hr IV .Q15H [facility] Rx#: [id number] Oral 540 350 Other: Voiding Method Toilet Toilet Toilet # Voids 1 1 - Exam Patient is awake, comfortable, no acute distress Examination of the heart S1 and S2 Examination of the lungs bilateral breath sounds are heard Abdomen is soft nontender Examination of the lower extremities shows no edema 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 Acute kidney injury secondary to ATN secondary to hypotension and further worsened with the use of diuretics and diarrhea. Creatinine 4.17 on admission, down to 2.8. No hydronephrosis noted on CAT scan. 2. Chronic kidney disease stage IV with baseline creatinine in the range of 2- 2.5 secondary to nephrosclerosis/diabetic kidney disease. Trace protein on UA. Does not follow with nephrology. 3. Abdominal pain being followed by surgery. No intervention planned. No acute findings noted on CT of the abdomen and pelvis. 4. Chronic systolic CHF with ejection fraction of 45% with mild to moderate tricuspid regurgitation. 5. Diabetes mellitus. 6. Mild volume overload Plan: DC IV fluids Lasix IV 1 Continue off of DARLYN inhibitor's Continue to avoid nephrotoxic agents Patient will need follow-up as outpatient for CK D and acute kidney injury.
[2022-08-27 11:02] LABS: Basophils % (A) 0 %; Eosinophils # (A) 0.1 k/uL (0-0.7); Eosinophils % (A) 0 %; HCT 35.2 % (39.0-53.0); HGB 10.6 gm/dL (13.0-17.5); Hypochromasia Moderate; Lymphocytes # (A) 0.9 k/uL (1.0-4.8); Lymphocytes % (A) 5 %; MCH 27.8 pg (25.0-35.0); MCHC 30.2 g/dL (31.0-37.0); MCV 92.2 fL (80.0-100.0); Mean Platelet Volume 8.7; Monocytes # (A) 0.5 k/uL (0-1.0); Monocytes % (A) 3 %; Neutrophils # (A) 17.6 k/uL (1.3-7.7); Neutrophils % (A) 91 %; Platelet Count 185 k/uL (150-450); RBC 3.82 m/uL (4.30-5.90); RDW 15.1 % (11.5-15.5); WBC 19.3 k/uL (3.8-10.6)
[2022-08-27 11:18] LABS: Calcium 8.3 mg/dL (8.4-10.2); Potassium 3.9 mmol/L (3.5-5.1)
[2022-08-27 11:25] LABS: Glucose,Whole Blood 210 mg/dL (70-110)
--- NOTE | 2022-08-27 12:41 | P.PN ---
Subjective Progress Note Date: 08/27/22 HISTORY OF PRESENT ILLNESS: This is a 87-year-old male with a past medical history significant for pers istent atrial fibrillation, cardiomyopathy with recent ejection fraction of 45%, hypertension, hyperlipidemia, diabetes, and former nicotine dependence. Patient follows in the office with Dr. Gilliland. We have been asked to see the patient in consultation for A. fib with RVR. Patient examined at the bedside. Patient presented to the hospital for chief complaint of abdominal pain. He is being followed by general surgery. This morning, the patient developed A. fib with RVR and cardiology was consulted. The patient denies any chest pain or pressure. He denies any shortness of breath. He denies any palpitations. He continues to have some abdominal pain this morning. It is noted that the cristiana pillai's ejection fraction in July was 45%. Previous to this in 2020 he had a normal EF. Upon review of EKGs over the past couple years, the patient seems to be in A. fib with RVR persistently, which may be contributing to his cardiomyopathy. The patient underwent event monitor from the cardiology office from 08/05/2022 until 08/11/2022. The patient's average rate was 112 bpm, minimum of 80 bpm, and maximum of 149 bpm. * EKG reveals A. fib with RVR * Laboratory data: WC 11.63. Hemoglobin 8.7. Platelet count 155. Sodium 134. Potassium 4.3. BUN 73. Creatinine 3.9. * Current home cardiac medications include Lasix 20 mg daily, metoprolol tartrate 75 mg twice a day, lisinopril-hydrochlorothiazide 20-25mg daily, lovastatin 40 mg at night, and Eliquis 2.5mg BID * Most recent echocardiogram obtained in July 2022 revealed ejection fraction 45%, mild to moderate TR * Cardiac catheterization history: 2016 revealing 50% mid circumflex lesion, right dominant system, normal EF 08/26 Patient was transferred from [facility] to cardiac stepdown unit yesterday due to A. fib with RVR. Yesterday afternoon heart rate was running in the 160s despite use of IV Cardizem and this was changed to amiodarone around 2 in the afternoon. Today he is running 100-120s and is still going higher with ambulation. Blood pressure 114/70. Repeat blood work reveals hemoglobin of 9.7, WBC 12.8. Sodium 104, potassium 4, BUN 63 and creatinine 2.85. Rib x-rays revealed nondisplaced left rib fracture. Possible patchy left basilar atelectasis and lower infiltrate. 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 TSH came back normal at 0.879. 08/27 Patient is seen in follow-up today. He still is heart rate elevated 120s. IV amiodarone ended at 2 AM. We'll start the patient on oral amiodarone at 400 mg twice daily and continue Lopressor 100 mg twice daily. Blood pressure is 134/76. Repeat blood work reveals WBC 19.3, hemoglobin 7.6. Potassium 3.9, BUN 54 and creatinine 2.55. PHYSICAL EXAM: VITAL SIGNS: Reviewed. GENERAL: Well-developed in no acute distress. HEENT: Head is normocephalic. Pupils are equal, round. Sclerae anicteric. Mucous membranes of the mouth are moist. Neck supple. No JVD or thyromegaly LUNGS: Respirations even and unlabored. Lungs essentially clear to auscultation bilaterally. HEART: Tachycardic. Irregular rate and rhythm. S1 and S2 heard. ABDOMEN: Soft. Nondistended. Nontender. EXTREMITIES: Normal range of motion. No clubbing or cyanosis. Peripheral pulses intact. No lower extremity edema NEUROLOGIC: Awake and alert. Oriented x 3. 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 Dr. Bermudez recommending AV node ablation and PPM in the future. Further recommendations pending patient course Nurse practitioner note has been reviewed by physician. Signing provider agrees with the documented findings, assessment, and plan of care. Objective - Vital Signs Vital signs: Vital Signs Temp 97.7 F 08/26/22 20:00 Pulse 82 08/27/22 04:00 Resp 22 08/27/22 04:00 BP 124/71 08/27/22 04:00 Pulse Ox 97 08/27/22 04:00 FiO2 Intake & Output 08/26/22 08/27/22 08/27/22 18:59 06:59 18:59 Intake Total 779.727 Balance 779.727 Intake: Intake, IV Titration 239.727 Amount Amiodarone 450 mg In 239.727 Dextrose 5% in Water 250 ml @ 0.5 MG/MIN 16.667 mls/hr IV .Q15H [facility] Rx#: [id number] Oral 540 Other: Voiding Method Toilet Toilet # Voids 1 1 - Labs CBC & Chem 7: 08/27/22 10:45 08/27/22 10:45 Labs: Abnormal Lab Results - Last 24 Hours (Table) 08/26/22 08/26/22 08/26/22 Range/Units 08:58 08:58 11:24 WBC 12.8 H (3.8-10.6) k/uL RBC 3.39 L (4.30-5.90) m/uL Hgb 9.7 L (13.0-17.5) gm/dL Hct 30.7 L (39.0-53.0) % Neutrophils # 11.5 H (1.3-7.7) k/uL Lymphocytes # 0.7 L (1.0-4.8) k/uL Sodium 134 L (137-145) mmol/L Carbon Dioxide 18 L (22-30) mmol/L BUN 63 H (9-20) mg/dL Creatinine 2.85 H (0.66-1.25) mg/dL Glucose 199 H (74-99) mg/dL POC Glucose (mg/dL) 209 H (70-110) mg/dL Calcium 8.1 L (8.4-10.2) mg/dL 08/26/22 08/26/22 08/27/22 Range/Units 16:50 20:17 05:40 WBC (3.8-10.6) k/uL RBC (4.30-5.90) m/uL Hgb (13.0-17.5) gm/dL Hct (39.0-53.0) % Neutrophils # (1.3-7.7) k/uL Lymphocytes # (1.0-4.8) k/uL Sodium (137-145) mmol/L Carbon Dioxide (22-30) mmol/L BUN (9-20) mg/dL Creatinine (0.66-1.25) mg/dL Glucose (74-99) mg/dL POC Glucose (mg/dL) 237 H 230 H 163 H (70-110) mg/dL Calcium (8.4-10.2) mg/dL
[2022-08-27 16:30] LABS: Glucose,Whole Blood 227 mg/dL (70-110)
[2022-08-27 20:21] LABS: Glucose,Whole Blood 248 mg/dL (70-110)
[2022-08-27] MEDS: BUDESONIDE 0.5 MG/2 ML NEBU INHALATION SCH (21:02)
[2022-08-27] MEDS: ATORVASTATIN 10 MG TAB PO SCH (21:18)
[2022-08-28 06:12] LABS: Glucose,Whole Blood 180 mg/dL (70-110)
[2022-08-28] MEDS: INSULIN ASPART (NovoLOG) 100 UNIT/ML VIAL SQ SCH ×3 (06:30→16:52)
[2022-08-28] MEDS: DOXYCYCLINE 100 MG CAP PO SCH ×2 (08:15→20:29)
[2022-08-28] MEDS: AMIODARONE 200 MG TAB PO SCH ×2 (08:16→20:28)
[2022-08-28] MEDS: APIXABAN 2.5 MG TABLET PO SCH ×2 (08:16→20:29)
[2022-08-28] MEDS: METOPROLOL TARTRATE 50 MG TAB PO SCH ×2 (08:16→20:29)
[2022-08-28] MEDS: PANTOPRAZOLE 40 MG TABLET PO SCH (08:16)
[2022-08-28] MEDS: LIDOCAINE 5% PATCH TOPICAL SCH (08:16)
[2022-08-28] MEDS: IPRATROPIUM-ALBUTEROL 3 ML NEB INHALATION PRN ×4 (09:06→21:30)
[2022-08-28 09:34] LABS: Basophils % (A) 0 %; Eosinophils % (A) 0 %; HCT 33.2 % (39.0-53.0); HGB 10.3 gm/dL (13.0-17.5); Hypochromasia Slight; Lymphocytes # (A) 0.8 k/uL (1.0-4.8); Lymphocytes % (A) 5 %; MCH 28.3 pg (25.0-35.0); MCHC 30.9 g/dL (31.0-37.0); MCV 91.5 fL (80.0-100.0); Mean Platelet Volume 8.4; Monocytes # (A) 0.5 k/uL (0-1.0); Monocytes % (A) 3 %; Neutrophils % (A) 91 %; Platelet Count 208 k/uL (150-450); RBC 3.63 m/uL (4.30-5.90); WBC 15.4 k/uL (3.8-10.6)
[2022-08-28 09:50] LABS: Calcium 8.1 mg/dL (8.4-10.2); Potassium 3.5 mmol/L (3.5-5.1)
[2022-08-28 11:25] LABS: Glucose,Whole Blood 227 mg/dL (70-110)
--- NOTE | 2022-08-28 11:36 | P.PN ---
Subjective Patient is seen for follow-up for acute kidney injury on top of chronic kidney disease. Admitted to the hospital with complaints of abdominal pain. Diuretics and DARLYN inhibitor's currently on hold. Patient is maintained on IV fluids. Blood pressure was low on initial admission. Serum creatinine at 2.6 from 4.1 on initial admission. Previous labs show serum creatinine ranging from 2.0-2.6 mg/dL for the last 3 years. IV fluids were discontinued yesterday as patient was mildly volume overloaded. He also received a dose of IV Lasix No complaints of chest pains or shortness of breath today. 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 - Labs CBC & Chem 7: 08/28/22 08:49 08/28/22 08:49 Labs: Abnormal Lab Results - Last 24 Hours (Table) 08/27/22 08/27/22 08/28/22 Range/Units 16:29 20:19 06:10 WBC (3.8-10.6) k/uL RBC (4.30-5.90) m/uL Hgb (13.0-17.5) gm/dL Hct (39.0-53.0) % MCHC (31.0-37.0) g/dL Neutrophils # (1.3-7.7) k/uL Lymphocytes # (1.0-4.8) k/uL Sodium (137-145) mmol/L Carbon Dioxide (22-30) mmol/L BUN (9-20) mg/dL Creatinine (0.66-1.25) mg/dL Glucose (74-99) mg/dL POC Glucose (mg/dL) 227 H 248 H 180 H (70-110) mg/dL Calcium (8.4-10.2) mg/dL 08/28/22 08/28/22 08/28/22 Range/Units 08:49 08:49 11:23 WBC 15.4 H (3.8-10.6) k/uL RBC 3.63 L (4.30-5.90) m/uL Hgb 10.3 L (13.0-17.5) gm/dL Hct 33.2 L (39.0-53.0) % MCHC 30.9 L (31.0-37.0) g/dL Neutrophils # 14.0 H (1.3-7.7) k/uL Lymphocytes # 0.8 L (1.0-4.8) k/uL Sodium 136 L (137-145) mmol/L Carbon Dioxide 21 L (22-30) mmol/L BUN 50 H (9-20) mg/dL Creatinine 2.61 H (0.66-1.25) mg/dL Glucose 216 H (74-99) mg/dL POC Glucose (mg/dL) 227 H (70-110) mg/dL Calcium 8.1 L (8.4-10.2) mg/dL Assessment and Plan Assessment: 1. Acute kidney injury secondary to ATN secondary to hypotension and further worsened with the use of diuretics and diarrhea. Creatinine 4.17 on admission, down to 2.6. No hydronephrosis noted on CAT scan. 2. Chronic kidney disease stage IV with baseline creatinine in the range of 2- 2.5 secondary to nephrosclerosis/diabetic kidney disease. Trace protein on UA. Does not follow with nephrology. 3. Abdominal pain being followed by surgery. No intervention planned. No acute findings noted on CT of the abdomen and pelvis. 4. Chronic systolic CHF with ejection fraction of 45% with mild to moderate tricuspid regurgitation. 5. Diabetes mellitus. 6. Mild volume overload, improved Plan: Add scheduled dose of loop diuretics Continue off of DARLYN inhibitor's Continue to avoid nephrotoxic agents Patient will need follow-up as outpatient for CK D and acute kidney injury.
[2022-08-28] MEDS: FUROSEMIDE 20 MG TAB PO SCH (11:56)
[2022-08-28] MEDS: DILTIAZEM ORAL 30 MG TAB PO SCH ×3 (13:49→20:28)
[2022-08-28 14:23] VITALS: BMI 29.2
--- NOTE | 2022-08-28 14:40 | P.PN ---
Subjective Progress Note Date: 08/28/22 HISTORY OF PRESENT ILLNESS: This is a 87-year-old male with a past medical history significant for pers istent atrial fibrillation, cardiomyopathy with recent ejection fraction of 45%, hypertension, hyperlipidemia, diabetes, and former nicotine dependence. Patient follows in the office with Dr. Gilliland. We have been asked to see the patient in consultation for A. fib with RVR. Patient examined at the bedside. Patient presented to the hospital for chief complaint of abdominal pain. He is being followed by general surgery. This morning, the patient developed A. fib with RVR and cardiology was consulted. The patient denies any chest pain or pressure. He denies any shortness of breath. He denies any palpitations. He continues to have some abdominal pain this morning. It is noted that the cristiana pillai's ejection fraction in July was 45%. Previous to this in 2020 he had a normal EF. Upon review of EKGs over the past couple years, the patient seems to be in A. fib with RVR persistently, which may be contributing to his cardiomyopathy. The patient underwent event monitor from the cardiology office from 08/05/2022 until 08/11/2022. The patient's average rate was 112 bpm, minimum of 80 bpm, and maximum of 149 bpm. * EKG reveals A. fib with RVR * Laboratory data: WC 11.63. Hemoglobin 8.7. Platelet count 155. Sodium 134. Potassium 4.3. BUN 73. Creatinine 3.9. * Current home cardiac medications include Lasix 20 mg daily, metoprolol tartrate 75 mg twice a day, lisinopril-hydrochlorothiazide 20-25mg daily, lovastatin 40 mg at night, and Eliquis 2.5mg BID * Most recent echocardiogram obtained in July 2022 revealed ejection fraction 45%, mild to moderate TR * Cardiac catheterization history: 2016 revealing 50% mid circumflex lesion, right dominant system, normal EF 08/26 Patient was transferred from [facility] to cardiac stepdown unit yesterday due to A. fib with RVR. Yesterday afternoon heart rate was running in the 160s despite use of IV Cardizem and this was changed to amiodarone around 2 in the afternoon. Today he is running 100-120s and is still going higher with ambulation. Blood pressure 114/70. Repeat blood work reveals hemoglobin of 9.7, WBC 12.8. Sodium 104, potassium 4, BUN 63 and creatinine 2.85. Rib x-rays revealed nondisplaced left rib fracture. Possible patchy left basilar atelectasis and lower infiltrate. 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 TSH came back normal at 0.879. 08/27 Patient is seen in follow-up today. He still is heart rate elevated 120s. IV amiodarone ended at 2 AM. We'll start the patient on oral amiodarone at 400 mg twice daily and continue Lopressor 100 mg twice daily. Blood pressure is 134/76. Repeat blood work reveals WBC 19.3, hemoglobin 7.6. Potassium 3.9, BUN 54 and creatinine 2.55. 08/28 Patient's heart rate is mostly in the 1 teens been jumping up to the 130s. Patient denies having any chest pain, shortness of breath, lightheadedness or dizziness. He is currently on amiodarone 400 mg twice daily and Lopressor 100 mg twice daily. Patient's is inquiring whether he would be appropriate for the ablation followed by pacemaker which was suggested by Dr. Bermudez. This will be further discussed. PHYSICAL EXAM: VITAL SIGNS: Reviewed. GENERAL: Well-developed in no acute distress. HEENT: Head is normocephalic. Pupils are equal, round. Sclerae anicteric. Mucous membranes of the mouth are moist. Neck supple. No JVD or thyromegaly LUNGS: Respirations even and unlabored. Lungs essentially clear to auscultation bilaterally. HEART: Tachycardic. Irregular rate and rhythm. S1 and S2 heard. ABDOMEN: Soft. Nondistended. Nontender. EXTREMITIES: Normal range of motion. No clubbing or cyanosis. Peripheral pulses intact. No lower extremity edema NEUROLOGIC: Awake and alert. Oriented x 3. 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 Dr. Bermudez recommending AV node ablation and PPM in the future. Further recommendations pending patient course Nurse practitioner note has been reviewed by physician. Signing provider agrees with the documented findings, assessment, and plan of care. Objective - Vital Signs Vital signs: Vital Signs Temp 97.9 F 08/28/22 08:15 Pulse 112 H 08/28/22 12:24 Resp 18 08/28/22 11:55 BP 118/77 08/28/22 11:55 Pulse Ox 96 08/28/22 11:55 FiO2 Intake & Output 08/27/22 08/28/22 08/28/22 18:59 06:59 18:59 Intake Total 570 220 Balance 570 220 Weight 77.111 kg Intake: Oral 570 220 Other: Voiding Method Toilet Toilet Toilet # Voids 1 - Labs CBC & Chem 7: 08/28/22 08:49 08/28/22 08:49 Labs: Abnormal Lab Results - Last 24 Hours (Table) 08/27/22 08/27/22 08/28/22 Range/Units 16:29 20:19 06:10 WBC (3.8-10.6) k/uL RBC (4.30-5.90) m/uL Hgb (13.0-17.5) gm/dL Hct (39.0-53.0) % MCHC (31.0-37.0) g/dL Neutrophils # (1.3-7.7) k/uL Lymphocytes # (1.0-4.8) k/uL Sodium (137-145) mmol/L Carbon Dioxide (22-30) mmol/L BUN (9-20) mg/dL Creatinine (0.66-1.25) mg/dL Glucose (74-99) mg/dL POC Glucose (mg/dL) 227 H 248 H 180 H (70-110) mg/dL Calcium (8.4-10.2) mg/dL 08/28/22 08/28/22 08/28/22 Range/Units 08:49 08:49 11:23 WBC 15.4 H (3.8-10.6) k/uL RBC 3.63 L (4.30-5.90) m/uL Hgb 10.3 L (13.0-17.5) gm/dL Hct 33.2 L (39.0-53.0) % MCHC 30.9 L (31.0-37.0) g/dL Neutrophils # 14.0 H (1.3-7.7) k/uL Lymphocytes # 0.8 L (1.0-4.8) k/uL Sodium 136 L (137-145) mmol/L Carbon Dioxide 21 L (22-30) mmol/L BUN 50 H (9-20) mg/dL Creatinine 2.61 H (0.66-1.25) mg/dL Glucose 216 H (74-99) mg/dL POC Glucose (mg/dL) 227 H (70-110) mg/dL Calcium 8.1 L (8.4-10.2) mg/dL
[2022-08-28 16:18] LABS: Glucose,Whole Blood 264 mg/dL (70-110)
[2022-08-28 19:50] LABS: Glucose,Whole Blood 229 mg/dL (70-110)
[2022-08-28] MEDS: ATORVASTATIN 10 MG TAB PO SCH (20:29)
[2022-08-28] MEDS: BUDESONIDE 0.5 MG/2 ML NEBU INHALATION SCH (21:30)
[2022-08-28 23:43] VITALS: RESP 18
[2022-08-29] MEDS: INSULIN ASPART (NovoLOG) 100 UNIT/ML VIAL SQ SCH ×3 (02:15→12:50)
[2022-08-29 05:52] LABS: Glucose,Whole Blood 198 mg/dL (70-110)
[2022-08-29] MEDS: IPRATROPIUM-ALBUTEROL 3 ML NEB INHALATION PRN ×2 (08:37→11:15)
[2022-08-29 08:55] LABS: Calcium 8.3 mg/dL (8.4-10.2); Potassium 3.6 mmol/L (3.5-5.1)
[2022-08-29] MEDS ORDERED: DILTIAZEM ORAL 30 MG TAB PO SCH (09:00)
[2022-08-29] MEDS: METOPROLOL TARTRATE 50 MG TAB PO SCH (09:33)
[2022-08-29] MEDS: PANTOPRAZOLE 40 MG TABLET PO SCH (09:33)
[2022-08-29] MEDS: FUROSEMIDE 20 MG TAB PO SCH (09:33)
[2022-08-29] MEDS: AMIODARONE 200 MG TAB PO SCH (09:33)
[2022-08-29] MEDS: DOXYCYCLINE 100 MG CAP PO SCH (09:34)
[2022-08-29] MEDS: APIXABAN 2.5 MG TABLET PO SCH (09:34)
[2022-08-29] MEDS: LIDOCAINE 5% PATCH TOPICAL SCH (09:34)
--- NOTE | 2022-08-29 10:07 | P.PN ---
Subjective Progress Note Date: 08/29/22 HISTORY OF PRESENT ILLNESS: This is a 87-year-old male with a past medical history significant for pers istent atrial fibrillation, cardiomyopathy with recent ejection fraction of 45%, hypertension, hyperlipidemia, diabetes, and former nicotine dependence. Patient follows in the office with Dr. Gilliland. We have been asked to see the patient in consultation for A. fib with RVR. Patient examined at the bedside. Patient presented to the hospital for chief complaint of abdominal pain. He is being followed by general surgery. This morning, the patient developed A. fib with RVR and cardiology was consulted. The patient denies any chest pain or pressure. He denies any shortness of breath. He denies any palpitations. He continues to have some abdominal pain this morning. It is noted that the cristiana pillai's ejection fraction in July was 45%. Previous to this in 2020 he had a normal EF. Upon review of EKGs over the past couple years, the patient seems to be in A. fib with RVR persistently, which may be contributing to his cardiomyopathy. The patient underwent event monitor from the cardiology office from 08/05/2022 until 08/11/2022. The patient's average rate was 112 bpm, minimum of 80 bpm, and maximum of 149 bpm. * EKG reveals A. fib with RVR * Laboratory data: WC 11.63. Hemoglobin 8.7. Platelet count 155. Sodium 134. Potassium 4.3. BUN 73. Creatinine 3.9. * Current home cardiac medications include Lasix 20 mg daily, metoprolol tartrate 75 mg twice a day, lisinopril-hydrochlorothiazide 20-25mg daily, lovastatin 40 mg at night, and Eliquis 2.5mg BID * Most recent echocardiogram obtained in July 2022 revealed ejection fraction 45%, mild to moderate TR * Cardiac catheterization history: 2016 revealing 50% mid circumflex lesion, right dominant system, normal EF 08/26 Patient was transferred from [facility] to cardiac stepdown unit yesterday due to A. fib with RVR. Yesterday afternoon heart rate was running in the 160s despite use of IV Cardizem and this was changed to amiodarone around 2 in the afternoon. Today he is running 100-120s and is still going higher with ambulation. Blood pressure 114/70. Repeat blood work reveals hemoglobin of 9.7, WBC 12.8. Sodium 104, potassium 4, BUN 63 and creatinine 2.85. Rib x-rays revealed nondisplaced left rib fracture. Possible patchy left basilar atelectasis and lower infiltrate. 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 TSH came back normal at 0.879. 08/27 Patient is seen in follow-up today. He still is heart rate elevated 120s. IV amiodarone ended at 2 AM. We'll start the patient on oral amiodarone at 400 mg twice daily and continue Lopressor 100 mg twice daily. Blood pressure is 134/76. Repeat blood work reveals WBC 19.3, hemoglobin 7.6. Potassium 3.9, BUN 54 and creatinine 2.55. 08/28 Patient's heart rate is mostly in the 1 teens been jumping up to the 130s. Patient denies having any chest pain, shortness of breath, lightheadedness or dizziness. He is currently on amiodarone 400 mg twice daily and Lopressor 100 mg twice daily. Patient's is inquiring whether he would be appropriate for the ablation followed by pacemaker which was suggested by Dr. Bermudez. This will be further discussed. 08/29 Patient is seen today in follow-up. His heart rate is running in the 100 and teens. We added Cardizem oral 30 mg 3 times daily yesterday. Patient is very anxious to go home. He has been without chest pain, no palpitations. No shortness of breath. Blood pressure 134/82. PHYSICAL EXAM: VITAL SIGNS: Reviewed. GENERAL: Well-developed in no acute distress. HEENT: Head is normocephalic. Pupils are equal, round. Sclerae anicteric. Mucous membranes of the mouth are moist. Neck supple. No JVD or thyromegaly LUNGS: Respirations even and unlabored. Lungs essentially clear to auscultation bilaterally. HEART: Irregular rate and rhythm. S1 and S2 heard. ABDOMEN: Soft. Nondistended. Nontender. EXTREMITIES: Normal range of motion. No clubbing or cyanosis. Peripheral pulses intact. No lower extremity edema NEUROLOGIC: Awake and alert. Oriented x 3. 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 Bermudez recommending AV node ablation and PPM in the future. Patient will follow-up in the office with Dr. Gilliland for further discussion regarding treatment. Patient is cleared for discharge from cardiology perspect kevin. Nurse practitioner note has been reviewed by physician. Signing provider agrees with the documented findings, assessment, and plan of care. Objective - Vital Signs Vital signs: Vital Signs Temp 98.0 F 08/29/22 04:00 Pulse 68 08/29/22 08:49 Resp 18 08/29/22 04:00 BP 134/82 08/29/22 04:00 Pulse Ox 94 L 08/29/22 08:40 FiO2 Intake & Output 08/28/22 08/29/22 08/29/22 18:59 06:59 18:59 Intake Total 550 480 250 Balance 550 480 250 Weight 77.111 kg Intake: IV 10 Invasive Line 2 10 Oral 550 480 240 Other: Voiding Method Toilet Toilet # Voids 2 2 - Labs CBC & Chem 7: 08/28/22 08:49 08/29/22 07:02 Labs: Abnormal Lab Results - Last 24 Hours (Table) 08/28/22 08/28/22 08/28/22 Range/Units 11:23 16:16 19:45 Carbon Dioxide (22-30) mmol/L BUN (9-20) mg/dL Creatinine (0.66-1.25) mg/dL Glucose (74-99) mg/dL POC Glucose (mg/dL) 227 H 264 H 229 H (70-110) mg/dL Calcium (8.4-10.2) mg/dL 08/29/22 08/29/22 Range/Units 05:49 07:02 Carbon Dioxide 19 L (22-30) mmol/L BUN 54 H (9-20) mg/dL Creatinine 2.48 H (0.66-1.25) mg/dL Glucose 177 H (74-99) mg/dL POC Glucose (mg/dL) 198 H (70-110) mg/dL Calcium 8.3 L (8.4-10.2) mg/dL
[2022-08-29] MEDS: DILTIAZEM ORAL 30 MG TAB PO SCH (10:27)
[2022-08-29 10:32] VITALS: TEMP 97.6
[2022-08-29 11:25] LABS: Glucose,Whole Blood 276 mg/dL (70-110)
[2022-08-29 12:26] VITALS: BP 108/69; PULSE 80
--- NOTE | 2022-08-30 01:11 | P.PN ---
Subjective Patient is seen for follow-up for acute kidney injury on top of chronic kidney disease. Admitted to the hospital with complaints of abdominal pain. Diuretics and DARLYN inhibitor's currently on hold. Patient is maintained on IV fluids. Blood pressure was low on initial admission. Serum creatinine at 2.4 from 4.1 on initial admission. Previous labs show serum creatinine ranging from 2.0-2.6 mg/dL for the last 3 years. IV fluids were discontinued as patient was mildly volume overloaded. He also received a dose of IV Lasix No complaints of chest pains or shortness of breath today. Objective - Vital Signs Vital signs: Vital Signs Temp 97.6 F 08/29/22 09:34 Pulse 80 08/29/22 12:24 Resp 18 08/29/22 12:24 BP 108/69 08/29/22 12:24 Pulse Ox 100 08/29/22 12:24 FiO2 Intake & Output 08/29/22 08/29/22 08/30/22 06:59 18:59 06:59 Intake Total 480 250 Balance 480 250 Intake: IV 10 Invasive Line 2 10 Oral 480 240 Other: Voiding Method Toilet Toilet # Voids 2 1 - Exam Patient is awake, comfortable, no acute distress Examination of the heart S1 and S2 Examination of the lungs bilateral breath sounds are heard Abdomen is soft nontender Examination of the lower extremities shows no edema 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 Acute kidney injury secondary to ATN secondary to hypotension and further worsened with the use of diuretics and diarrhea. Creatinine 4.17 on admission, down to 2.4. No hydronephrosis noted on CAT scan. 2. Chronic kidney disease stage IV with baseline creatinine in the range of 2- 2.5 secondary to nephrosclerosis/diabetic kidney disease. Trace protein on UA. Does not follow with nephrology. 3. Abdominal pain being followed by surgery. No intervention planned. No acute findings noted on CT of the abdomen and pelvis. 4. Chronic systolic CHF with ejection fraction of 45% with mild to moderate tricuspid regurgitation. 5. Diabetes mellitus. 6. Mild volume overload, improved Plan: Continue with loop diuretics Continue off of DARLYN inhibitor's Continue to avoid nephrotoxic agents Patient will need follow-up as outpatient for CK D and acute kidney injury.
== END 2022-08-29 13:20 | disposition home or self-care (01) | DRG 377 ==
LOC: EC 14:23 → 4SSUR 19:31 → 3SCARD 08-25 09:39
PROVIDERS: ADMIT Internal Medicine; ATTEND Internal Medicine
DX: K57.91 Diverticulosis of intestine, part unspecified, without perforation or abscess with bleeding (principal); N17.0 Acute kidney failure with tubular necrosis; E87.20 Acidosis, unspecified; I13.0 Hypertensive heart and chronic kidney disease with heart failure and stage 1 through stage 4 chronic kidney disease, or unspecified chronic kidney disease; I42.8 Other cardiomyopathies; I48.21 Permanent atrial fibrillation; I47.1 Supraventricular tachycardia; I50.22 Chronic systolic (congestive) heart failure; N18.4 Chronic kidney disease, stage 4 (severe); E11.22 Type 2 diabetes mellitus with diabetic chronic kidney disease; I95.9 Hypotension, unspecified; I07.1 Rheumatic tricuspid insufficiency; N28.1 Cyst of kidney, acquired; R19.7 Diarrhea, unspecified; T50.2X5A Adverse effect of carbonic-anhydrase inhibitors, benzothiadiazides and other diuretics, initial encounter; E78.5 Hyperlipidemia, unspecified; I25.10 Atherosclerotic heart disease of native coronary artery without angina pectoris; I99.8 Other disorder of circulatory system; M19.012 Primary osteoarthritis, left shoulder; W01.190D Fall on same level from slipping, tripping and stumbling with subsequent striking against furniture, subsequent encounter; Z79.899 Other long term (current) drug therapy; S22.32XD Fracture of one rib, left side, subsequent encounter for fracture with routine healing; Z79.84 Long term (current) use of oral hypoglycemic drugs; Z79.51 Long term (current) use of inhaled steroids; Z79.01 Long term (current) use of anticoagulants; Z87.891 Personal history of nicotine dependence; Z98.61 Coronary angioplasty status
CPT/HCPCS: 36415; 74176; 76770; 80048; 80053; 81003; 82272; 83036; 83605; 83690; 84443; 85025; 86850; 86900; 86901; 93005; 94640; 94660; 94760; 96361; 96374; 96375; 99285

== ENCOUNTER 2022-09-09 10:17 | Inpatient (IN) | payer MEDICARE ==
[2022-09-09 10:26] LABS: Glucose,Whole Blood 475 mg/dL (70-110)
[2022-09-09] MEDS ORDERED: NOREPINEPHRINE 4 MG in SODIUM CHLORIDE 0.9% 250 ML IV ONE (10:40)
[2022-09-09] MEDS ORDERED: NOREPINEPHRINE 32 MG in SODIUM CHLORIDE 0.9% 218 ML IV ONE (10:41)
[2022-09-09] MEDS ORDERED: MIDAZOLAM 1 MG/ML 5 ML VIAL IV STA (10:54)
[2022-09-09] MEDS ORDERED: EPINEPHrine 4 MG in DEXTROSE 5% IN WATER 250 ML IV ONE ×2 (11:13)
--- NOTE | 2022-09-09 11:16 | XR ---
EXAMINATION TYPE: XR chest 1V portable DATE OF EXAM: 09/09/2022 COMPARISON: 08/26/2022 HISTORY: Cardiac arrest TECHNIQUE: Single frontal view of the chest is obtained. FINDINGS: Complete opacification of the left hemithorax. ET tube is approximately 2.47 m above the c gabrielle and the NG tube appears in good position with the tip near the level of the gastric fundus. Cou ld be advanced a couple centimeters. Right lung appears clear. No pneumothorax. Heart is likely enlar ged. There is a subcutaneous loop recorder overlying the left hemithorax. IMPRESSION: 1. Complete opacification of the left hemithorax could represent a combination of consolidation, pneu monia and pleural fluid. A mucous plug or obstructing endobronchial lesion in the differential diagno sis. 2. ET tube and NG tube appear in good position.
[2022-09-09] MEDS ORDERED: AZITHROMYCIN 500 MG in SODIUM CHLORIDE 0.9% 250 ML IVPB STA (11:19)
[2022-09-09 11:22] LABS: ALT 63 U/L (4-49); AST 49 U/L (17-59); African American GFR (CKD) 19 (>60 ml/min/1.73 sqM); Alkaline Phosphatase 131 U/L (38-126); Anion Gap 19 mmol/L; Blood Urea Nitrogen 98 mg/dL (9-20); Calcium 7.4 mg/dL (8.4-10.2); Carbon Dioxide 14 mmol/L (22-30); Chloride 96 mmol/L (98-107); Glucose 443 mg/dL (74-99); Magnesium 1.9 mg/dL (1.6-2.3); Non-African American GFR(CKD) 16 (>60 ml/min/1.73 sqM); Sodium 129 mmol/L (137-145); Total Bilirubin 0.7 mg/dL (0.2-1.3); Total Protein 4.4 g/dL (6.3-8.2)
[2022-09-09 11:24] LABS: Potassium 4.6 mmol/L (3.5-5.1)
[2022-09-09] MEDS: SODIUM CHLORIDE 0.9% 1,000 ML IV SCH ×2 (11:25→14:46)
[2022-09-09] MEDS ORDERED: MIDAZOLAM HCL 50 MG in SODIUM CHLORIDE 0.9% 40 ML IV SCH (11:30)
[2022-09-09 11:32] LABS: INR 1.4 (<1.2); Partial Thromboplastin Time 23.8 sec (22.0-30.0); Prothrombin Time 14.3 sec (9.0-12.0)
[2022-09-09] MEDS ORDERED: NALOXONE 0.4 MG/ML 1 ML VIAL IV PRN (11:36)
[2022-09-09] MEDS ORDERED: LIDOCAINE 1% INJ 10MG/ML (30 ML VIAL-PF) SQ ONE (11:37)
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
[2022-09-09 11:43] LABS: HGB 9.9 gm/dL (13.0-17.5); Hypochromasia Marked; MCH 27.7 pg (25.0-35.0); MCV 92.2 fL (80.0-100.0); Mean Platelet Volume 9.1; RBC 3.58 m/uL (4.30-5.90); RDW 15.3 % (11.5-15.5); WBC 16.4 k/uL (3.8-10.6)
[2022-09-09 11:47] LABS: Platelet Count 512 k/uL (150-450)
[2022-09-09] MEDS ORDERED: CISATRACURIUM 2 MG/ML 5 ML VIAL IV ONE (11:53)
--- NOTE | 2022-09-09 12:23 | XR ---
EXAMINATION TYPE: XR chest 1V portable DATE OF EXAM: 09/09/2022 COMPARISON: 09/09/2022 HISTORY: chest tube confirmation TECHNIQUE: Single frontal view of the chest is obtained. FINDINGS: Post chest tube placement with the improved aeration\ opacification of the left hemithorax . ET tube is approximately 2.4 post cm above the ankita and the NG tube appears in good position with t he tip near the level of the gastric fundus. Could be advanced a couple centimeters. Right lung appea rs clear. No pneumothorax. Heart is likely enlarged. There is a subcutaneous loop recorder overlying the left hemithorax. Subcutaneous emphysema noted. IMPRESSION: 1. Chest tube placement with marked improved aeration of the left hemithorax with persistent areas of pleural fluid or consolidation.
[2022-09-09 12:33] LABS: ABG Base Excess -11.4 mmol/L; ABG HCO3 17 mmol/L (21-25); ABG Oxygen Saturation 98.7 % (94-97); ABG PCO2 44 mmHg (35-45); ABG PO2 159 mmHg (83-108); ABG TCO2 18 mmol/L (19-24); Allen Test Performed? Yes
[2022-09-09 12:35] LABS: ABG PH 7.19 (7.35-7.45)
[2022-09-09 13:03] LABS: Band Neutrophils % 4 %; Lymphocytes # (M) 1.15 k/uL (1.0-4.8); Metamyelocytes # (M) 0.33 k/uL (0); Metamyelocytes % 2 %; Monocytes # (M) 0.82 k/uL (0-1.0); Myelocytes # (M) 0.33 k/uL (0); Myelocytes % 2 %; Neutrophils % (M) 81 %; Nucleated Red Blood Cells 0 /100 WBC (0-0); Total Cells Counted 200
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
[2022-09-09 14:28] LABS: Glucose,Whole Blood 398 mg/dL (70-110)
[2022-09-09] MEDS ORDERED: SODIUM BICARB 8.4% 50 ML SYR (1 MEQ/ML) ONE (14:34)
[2022-09-09] MEDS ORDERED: SODIUM BICARB 8.4% 50 ML SYR (1 MEQ/ML) IV STA ×3 (14:34→17:46)
[2022-09-09] MEDS ORDERED: MAGNESIUM SULFATE-D5W PMX 1 GM in DEXTROSE/WATER 1 100ML.BAG IVPB ONE (14:39)
--- NOTE | 2022-09-09 15:02 | OP ---
OPERATIVE REPORT DATE OF SERVICE : PROCEDURE PERFORMED: Left-sided chest tube placement/tube thoracostomy. PREOPERATIVE DIAGNOSES: Cardiac arrest, left-sided pleural effusion. POSTOPERATIVE DIAGNOSIS: Left-sided hemothorax. ANESTHESIA USED: 10 mL of 1% lidocaine. DESCRIPTION OF PROCEDURE: The patient was placed in a supine position, he was already on mechanical ventilation, the patient was intubated earlier when he presented with acute cardiac arrest. I reviewed the chest x-ray prior to placement of the chest tube, and explained the findings to the family, and the family agreed to proceed with placement of a left-sided chest tube since the patient had completely opacified left lung with deviation of the trachea to the contralateral side. Again, the patient was placed in the supine position, the area of the left chest was prepared in a sterile fashion and drapes were applied. The area at the level of the anterior axillary line and 6th intercostal space was locally anesthetized with lidocaine. A 2 cm incision was made at that site, and using the index finger and the Sienna forceps, I was able to enter the pleural space easily. As I entered the pleural space, there was significant amount of dark blood that gushed from the pleural space. Initially, I put in a size 28 Tyner chest tube, however, the amount of the blood was significantly large and there was blood coming around the chest tube. I went ahead and placed a 32 Tyner chest tube instead of the 28 Tyner chest tube. The tube was connected to Pleur-Evac and connected to wall suction. A total of over 3 L of dark blood was drained from the pleural space. Then, the chest tube was secured in proper position using 0 Ethibond sutures. Chest x-ray showed significant improvement in the left-sided hemothorax. The procedure was well tolerated. I discussed the findings with the family, and daughter at bedside. MMODL / IJN: [id number] /
[2022-09-09] MEDS ORDERED: DEXTROSE 50% SYRINGE 50 ML IVP PRN ×2 (15:48)
[2022-09-09] MEDS: NOREPINEPHRINE 32 MG in SODIUM CHLORIDE 0.9% 218 ML IV SCH ×2 (16:05→21:31)
[2022-09-09] MEDS: VASOPRESSIN 20 UNIT in SODIUM CHLORIDE 0.9% 50 ML IV SCH ×2 (16:08→21:33)
[2022-09-09 16:14] LABS: HCT 38.2 % (39.0-53.0); HGB 12.1 gm/dL (13.0-17.5); Hypochromasia Moderate; MCH 28.5 pg (25.0-35.0); MCHC 31.6 g/dL (31.0-37.0); MCV 90.3 fL (80.0-100.0); Mean Platelet Volume 8.4; Platelet Count 455 k/uL (150-450); RBC 4.23 m/uL (4.30-5.90); RDW 15.8 % (11.5-15.5)
[2022-09-09 16:23] LABS: ALT 58 U/L (4-49); AST 42 U/L (17-59); African American GFR (CKD) 19 (>60 ml/min/1.73 sqM); Albumin 1.7 g/dL (3.5-5.0); Alkaline Phosphatase 124 U/L (38-126); Anion Gap 17 mmol/L; Blood Urea Nitrogen 97 mg/dL (9-20); Calcium 7.1 mg/dL (8.4-10.2); Carbon Dioxide 16 mmol/L (22-30); Chloride 98 mmol/L (98-107); Glucose 414 mg/dL (74-99); Non-African American GFR(CKD) 17 (>60 ml/min/1.73 sqM); Sodium 131 mmol/L (137-145); Total Bilirubin 2.1 mg/dL (0.2-1.3)
--- NOTE | 2022-09-09 16:56 | OP ---
OPERATIVE REPORT DATE OF SERVICE : PROCEDURE PERFORMED: Placement of a right brachial arterial line. PREOPERATIVE DIAGNOSES: Cardiopulmonary arrest and hypotension. POSTOPERATIVE DIAGNOSES: Cardiopulmonary arrest and hypotension. ANESTHESIA USED: None deployed. DESCRIPTION OF PROCEDURE: The patient was placed in a supine position. The right brachial region was prepared in a sterile fashion. Drapes were applied. The right brachial artery was palpated, easily cannulated, and a guidewire was placed. A Cook catheter was inserted over the guidewire and the guidewire was removed. Good blood flow, good waveform, no evidence of complications. MMODL / IJN: [id number] /
[2022-09-09 17:10] LABS: ABG Base Excess -7.4 mmol/L; ABG HCO3 18 mmol/L (21-25); ABG Oxygen Saturation 98.9 % (94-97); ABG PCO2 32 mmHg (35-45); ABG PH 7.36 (7.35-7.45); ABG PO2 118 mmHg (83-108); ABG TCO2 19 mmol/L (19-24)
[2022-09-09 17:13] LABS: Allen Test Performed? no
[2022-09-09 17:56] LABS: Glucose,Whole Blood 479 mg/dL (70-110)
[2022-09-09] MEDS: INSULIN ASPART (NovoLOG) 100 UNIT/ML VIAL SQ SCH ×2 (17:56→23:13)
[2022-09-09] MEDS ORDERED: DOXYCYCLINE 100 MG in SODIUM CHLORIDE 0.9% 100 ML IVPB SCH (21:00)
[2022-09-09] MEDS ORDERED: PIPERACILLIN-TAZOBACTAM 3.375 GM in SODIUM CHLORIDE 0.9% 100 ML IVPB SCH (21:00)
[2022-09-09 22:54] VITALS: BP 77/59
[2022-09-09] MEDS ORDERED: SODIUM CHLORIDE 0.9% 500 ML 500 ML IV ONE (23:05)
[2022-09-09 23:11] LABS: Glucose,Whole Blood 299 mg/dL (70-110)
[2022-09-10] MEDS ORDERED: ACETAMINOPHEN TAB 325 MG TAB PO PRN (00:27)
[2022-09-10] MEDS: NOREPINEPHRINE 32 MG in SODIUM CHLORIDE 0.9% 218 ML IV SCH (02:26)
[2022-09-10 04:09] VITALS: TEMP 100.6
[2022-09-10 04:24] LABS: Anisocytosis Slight; HCT 40.9 % (39.0-53.0); HGB 13.1 gm/dL (13.0-17.5); Hypochromasia Slight; MCH 28.1 pg (25.0-35.0); MCHC 32.1 g/dL (31.0-37.0); MCV 87.7 fL (80.0-100.0); Mean Platelet Volume 8.6; Platelet Count 415 k/uL (150-450); RBC 4.67 m/uL (4.30-5.90)
[2022-09-10 04:33] LABS: ALT 51 U/L (4-49); AST 41 U/L (17-59); African American GFR (CKD) 18 (>60 ml/min/1.73 sqM); Albumin 1.8 g/dL (3.5-5.0); Alkaline Phosphatase 91 U/L (38-126); Anion Gap 14 mmol/L; Calcium 7.1 mg/dL (8.4-10.2); Carbon Dioxide 16 mmol/L (22-30); Chloride 102 mmol/L (98-107); Glucose 241 mg/dL (74-99); Non-African American GFR(CKD) 16 (>60 ml/min/1.73 sqM); Potassium 4.8 mmol/L (3.5-5.1); Sodium 132 mmol/L (137-145); Total Bilirubin 1.2 mg/dL (0.2-1.3); Total Protein 4.3 g/dL (6.3-8.2)
[2022-09-10 04:45] LABS: Blood Urea Nitrogen 105 mg/dL (9-20)
[2022-09-10 05:50] LABS: Band Neutrophils % 20 %; Lymphocytes # (M) 2.06 k/uL (1.0-4.8); Monocytes # (M) 0.46 k/uL (0-1.0); Neutrophils % (M) 70 %; Nucleated Red Blood Cells 3 /100 WBC (0-0); Total Cells Counted 200; WBC 22.9 k/uL (3.8-10.6)
[2022-09-10 05:57] LABS: Polychromasia Present
[2022-09-10 06:04] LABS: ABG Base Excess -7.5 mmol/L; ABG HCO3 18 mmol/L (21-25); ABG Oxygen Saturation 98.7 % (94-97); ABG PCO2 31 mmHg (35-45); ABG PH 7.37 (7.35-7.45); ABG PO2 112 mmHg (83-108); ABG TCO2 19 mmol/L (19-24); Allen Test Performed? Yes
[2022-09-10] MEDS: INSULIN ASPART (NovoLOG) 100 UNIT/ML VIAL SQ SCH (06:32)
[2022-09-10] MEDS ORDERED: MORPHINE SULFATE 4 MG/ML SYRINGE IV PRN (06:53)
[2022-09-10] MEDS ORDERED: ATROPINE OPHTH SOLN 1% 5ML BTL SUBLINGUAL PRN (06:53)
[2022-09-10] MEDS ORDERED: SCOPOLAMINE 1 MG/72 HR PATCH TRANSDERM SCH (07:00)
[2022-09-10 07:04] VITALS: PULSE 165; RESP 24
--- NOTE | 2022-09-10 08:16 | XR ---
EXAMINATION TYPE: XR chest 1V DATE OF EXAM: 09/10/2022 COMPARISON: NONE HISTORY: 09/10/2019 TECHNIQUE: Single frontal view of the chest is obtained. FINDINGS: Chest tube placement with stable aeration opacification of the left hemithorax. ET tube is approximately 2.4 post cm above the ankita and the NG tube appears in good position with the tip blake r the level of the gastric fundus. Could be advanced a couple centimeters. Right lung appears clear. No pneumothorax. Heart is likely enlarged. There is a subcutaneous loop recorder overlying the left h emithorax. Subcutaneous emphysema noted. IMPRESSION: 1. Stable pleural parenchymal changes bilaterally with left-sided chest tube noted and marked apical pleural thickening or fluid.
[2022-09-10] MEDS ORDERED: PANTOPRAZOLE 40 MG/10 ML VIAL IV SCH (09:00)
--- NOTE | 2022-09-10 09:13 | P.DS ---
Providers Date of admission: 09/09/22 11:37 Expected date of discharge: 09/10/22 Attending physician: Kira Londono Consults: 09/09/22 11:36 Consult Physician Stat Consulting Provider: Fawn Velasquez Consult Reason/Comments: Cardiopulmonary arrest with ROSC Do you want consulting provider notified?: Already Contacted 09/09/22 16:32 Consult Physician Stat Consulting Provider: Roosevelt Brooks Consult Reason/Comments: cardiac arrest Do you want consulting provider notified?: Yes 09/09/22 17:04 Consult Physician Stat Consulting Provider: Cookie Beyer Consult Reason/Comments: creatine3.19 Do you want consulting provider notified?: Yes Primary care physician: [facility] Course: 87-year-old gentleman with past medical history significant for diabetes melli tus, hypertension, history of atrial fibrillation, history of chronic kidney disease stage IV, history of congestive heart failure with ejection fraction of 45% with [id number] tricuspid regurgitation, history of diabetes mellitus, recent hospitalization for GI bleed presented to the ER with cardiac arrest. History was obtained from patient was intubated in ER with critical care team at bedside * Patient was on his way to the hospital for not feeling well and was noted to have low oxygen levels while in the car on his way to the hospital patient started to have agonal respirations he was brought to the front door and immediately resuscitation was started patient was noted to have no pulse he was noted to have asystole patient had an approximate downtime" about 10 minutes * Patient had several rounds of CPR with epinephrine bicarbonate and atropine given, he had return of spontaneous circulation * Patient was started on epinephrine drip and a chest tube was placed * Chest x-ray obtained showed complete opacification of the left hemithorax with combination for consolidation pneumonia and pleural fluid mucus plugging part of the differential * Arterial blood gas obtained after intubation showed pH of 7.19 * Serum chemistry obtained for sodium of 129 carbon dioxide bicarb of 14, BUN of 28 creatinine 3.23 lactate of 6.1 calcium of 7.4 magnesium of 1.9 * Patient was transferred to ICU where he was managed however patient was noted to worse medical condition hence transition to comfort measures * Patient on 09/10/2022 at 7:35 AM Assessment: * Status post cardiac arrest * Acute hypoxic respiratory failure with left hemothorax * Status post chest tube placement * Status post intubation/mechanical ventilation * Septic shock * History of atrial fibrillation * Acute renal failure on chronic kidney disease stage IV * Cardiomyopathy with ejection fraction of 45 % with cardiogenic shock * Acute hyponatremia Transition to comfort measures eventually patient in ICU Health Concerns: Patient Condition at Discharge: Undetermined Plan - Discharge Summary Discharge Rx Participant: No New Discharge Prescriptions: Discontinued Omeprazole [PriLOSEC] 20 mg PO BID Lovastatin [Mevacor] 40 mg PO HS Doxazosin [Cardura] 2 mg PO DAILY Apixaban [Eliquis] 2.5 mg PO BID Budesonide 0.5 mg INHALATION RT-HS Ipratropium-Albuterol Nebulize [Duoneb 0.5 mg-3 mg/3 ml Soln] 3 ml INHALATION RT-QID PRN PRN Reason: Shortness Of Breath Doxycycline Hyclate 100 mg PO BID Ipratropium-Albuterol Nebulize [Duoneb 0.5 mg-3 mg/3 ml Soln] 3 ml INHALATION RT-DAILY Metoprolol Tartrate [Lopressor] 100 mg PO BID #120 tab Diltiazem Oral [Cardizem*] 60 mg PO TID #90 tab Lidocaine 5% Patch [Lidoderm] 1 patch TRANSDERM Q12H PRN PRN Reason: Pain Amiodarone [Cordarone] 200 mg PO BID Furosemide [Lasix] 20 mg PO DAILY allopurinoL 100 mg PO DAILY Linagliptin [Tradjenta] 5 mg PO DAILY #30 tab Discharge Disposition: - Preliminary Cause of Preliminary Cause of : Cardiac arrest with hemothorax
== END 2022-09-10 12:57 | disposition expired | DRG 871 ==
LOC: EC 10:17 → 2SICU 11:37
PROVIDERS: ADMIT Hospitalist; ATTEND Hospitalist
PROC: 5A1935Z Respiratory Ventilation, Less than 24 Consecutive Hours (ICD-10-PCS; principal; 2022-09-09)
PROC: 5A12012 Performance of Cardiac Output, Single, Manual (ICD-10-PCS; principal; 2022-09-09)
PROC: 0BH17EZ Insertion of Endotracheal Airway into Trachea, Via Natural or Artificial Opening (ICD-10-PCS; principal; 2022-09-09)
PROC: 0W9B30Z Drainage of Left Pleural Cavity with Drainage Device, Percutaneous Approach (ICD-10-PCS; 2022-09-09)
PROC: 3E033XZ Introduction of Vasopressor into Peripheral Vein, Percutaneous Approach (ICD-10-PCS; 2022-09-09)
PROC: 30243N1 Transfusion of Nonautologous Red Blood Cells into Central Vein, Percutaneous Approach (ICD-10-PCS; 2022-09-09)
PROC: 4A133B1 Monitoring of Arterial Pressure, Peripheral, Percutaneous Approach (ICD-10-PCS; 2022-09-09)
PROC: 4A133J1 Monitoring of Arterial Pulse, Peripheral, Percutaneous Approach (ICD-10-PCS; 2022-09-09)
PROC: 03HY32Z Insertion of Monitoring Device into Upper Artery, Percutaneous Approach (ICD-10-PCS; 2022-09-09)
PROC: 06HY33Z Insertion of Infusion Device into Lower Vein, Percutaneous Approach (ICD-10-PCS; 2022-09-09)
PROC: 0D9670Z Drainage of Stomach with Drainage Device, Via Natural or Artificial Opening (ICD-10-PCS; 2022-09-09)
DX: A41.9 Sepsis, unspecified organism (principal); J18.9 Pneumonia, unspecified organism; J96.01 Acute respiratory failure with hypoxia; R65.21 Severe sepsis with septic shock; J94.2 Hemothorax; I13.0 Hypertensive heart and chronic kidney disease with heart failure and stage 1 through stage 4 chronic kidney disease, or unspecified chronic kidney disease; E87.1 Hypo-osmolality and hyponatremia; I50.22 Chronic systolic (congestive) heart failure; J44.0 Chronic obstructive pulmonary disease with (acute) lower respiratory infection; N17.9 Acute kidney failure, unspecified; I42.9 Cardiomyopathy, unspecified; I48.20 Chronic atrial fibrillation, unspecified; N18.4 Chronic kidney disease, stage 4 (severe); E87.21 Acute metabolic acidosis; I46.8 Cardiac arrest due to other underlying condition; E11.22 Type 2 diabetes mellitus with diabetic chronic kidney disease; E11.65 Type 2 diabetes mellitus with hyperglycemia; Z66 Do not resuscitate; Z51.5 Encounter for palliative care; I07.1 Rheumatic tricuspid insufficiency; I44.0 Atrioventricular block, first degree; I25.10 Atherosclerotic heart disease of native coronary artery without angina pectoris; E78.5 Hyperlipidemia, unspecified; M10.9 Gout, unspecified; Z79.01 Long term (current) use of anticoagulants; Z79.84 Long term (current) use of oral hypoglycemic drugs; Z79.899 Other long term (current) drug therapy; Z79.51 Long term (current) use of inhaled steroids
CPT/HCPCS: 31500; 36415; 36556; 71045; 80053; 82805; 83605; 83735; 83880; 84484; 85025; 85027; 85610; 85730; 86850; 86900; 86901; 86920; 87040; 87070; 87077; 87186; 87205; 93005; 94002; 94003; 96365; 96367; 96375; 99291